=== PATIENT | male | born 1990 | race Caucasian/White ===

== ENCOUNTER 2017-09-08 10:57 | Inpatient (IN) | payer OTHER ==
[2017-09-08 11:23] VITALS: BMI 28.2
--- NOTE | 2017-09-08 13:50 | HP ---
CIWA Score - CIWA Score Nausea/Vomitin Muscle Tremors: 4-Moderate,w/Arms Extend Anxiety: 4-Mod. Anxious/Guarded Agitation: 4-Moderately Restless Paroxysmal Sweats: 3 Orientation: 0-Oriented Tacttile Disturbances: 0-None Auditory Disturbances: 0-None Visual Disturbances: 0-None Headache: 0-None Present CIWA-Ar Total Score: 17 Admission ROS BHS - HPI Chief Complaint: I am tired of drugs and drinking and want to get clean. Allergies/Adverse Reactions: Allergies Allergy/AdvReac Type Severity Reaction Status Date / Time No Known Allergies Allergy Verified 06/23/15 17:38 History of Present Illness: pt is a 26yr old male with a history of alcohol dependence seeking detox for treatment. Pt is also on a mmtp program received 100mg of methadone today and dose has been verified. Exam Limitations: No Limitations - Ebola screening Have you traveled outside of the country in the last 21 days: No (N) Have you had contact with anyone from an Ebola affected area: No Have you been sick,other than usual withdrawal symptoms: No Do you have a fever: No - Review of Systems Constitutional: Chills, Diaphoresis, Loss of Appetite, Night Sweats, Changes in sleep, Unintentional Wgt. Loss EENT: reports: Tearing Respiratory: reports: No Symptoms reported Cardiac: reports: Syncope GI: reports: Constipated, Poor Appetite, Poor Fluid Intake : reports: No Symptoms Reported Musculoskeletal: reports: Back Pain Integumentary: reports: Flushing, Sweating Neuro: reports: Tingling, Tremors Endocrine: reports: Excessive Sweating, Flushing, Intolerance to Cold, Intolerance to Heat Hematology: reports: No Symptoms Reported Psychiatric: reports: Judgement Intact, Mood/Affect Appropiate, Orientated x3, Agitated, Anxious Other Systems: Reviewed and Negative Patient History - Patient Medical History Hx Anemia: No Hx Asthma: No Hx Chronic Obstructive Pulmonary Disease (COPD): No Hx Cancer: No Hx Cardiac Disorders: No Hx Congestive Heart Failure: No Hx Hypertension: No Hx Hypercholesterolemia: No Hx Pacemaker: No HX Cerebrovascular Accident: No Hx Seizures: No Hx Dementia: No Hx Diabetes: No Hx Gastrointestinal Disorders: No (chronic gastritis) Hx Liver Disease: No Hx Genitourinary Disorders: No Hx Sexually Transmitted Disorders: No Hx Renal Disease (ESRD): No Hx Thyroid Disease: No Hx Human Immunodeficiency Virus (HIV): No (negative) Hx Hepatitis C: Yes (received treatment a year ago.) Hx Depression: Yes Hx Suicide Attempt: No (denies) Hx Bipolar Disorder: No Hx Schizophrenia: No - Patient Surgical History Past Surgical History: No Hx Neurologic Surgery: No Hx Cataract Extraction: No Hx Cardiac Surgery: No Hx Lung Surgery: No Hx Breast Surgery: No Hx Breast Biopsy: No Hx Abdominal Surgery: No Hx Appendectomy: No Hx Cholecystectomy: No Hx Genitourinary Surgery: No Hx Section: No Hx Orthopedic Surgery: No Anesthesia Reaction: No - PPD History Previous Implant?: Yes Documented Results: Negative w/o proof Implanted On Prior R Admission?: Yes PPD to be Administered?: Yes - Reproductive History Patient is a Female of Child Bearing Age (11 -55 yrs old): No - Smoking Cessation Smoking history: Current every day smoker Have you smoked in the past 12 months: Yes Aproximately how many cigarettes per day: 10 Cigars Per Day: 0 Hx Chewing Tobacco Use: No Initiated information on smoking cessation: Yes 'Breaking Loose' booklet given: 09/08/17 - Substance & Tx. History Hx Alcohol Use: Yes Hx Substance Use: Yes Substance Use Type: Alcohol, Cocaine, Heroin Hx Substance Use Treatment: Yes (last detox [facility] 1.5 months ago) - Substances Abused Cocaine Route: Inhalation Frequency: 3-6 times per week Amount used: $40 Age of first use: 16 Date of Last Use: 09/07/17 Heroin Route: Inhalation Frequency: Daily Amount used: 1 bag Age of first use: 20 Date of Last Use: 09/06/17 Alcohol-beer Route: Oral Frequency: Daily Amount used: 2-3 6 pks. Age of first use: 15 Date of Last Use: 09/07/17 Family Disease History - Family Disease History Family Disease History: CA: Mother (breast), Other: Father (ALCOHOL) Admission Physical Exam BHS - Vital Signs Vital Signs: Vital Signs - 24 hr 09/08/17 11:19 Temperature 97.7 F Pulse Rate 98 H Respiratory 18 Rate Blood Pressure 131/81 - Physical General Appearance: Yes: Appropriately Dressed, Moderate Distress, Tremorous, Irritable, Sweating, Anxious HEENTM: Yes: Normal ENT Inspection, Normal Voice Respiratory: Yes: Lungs Clear, Normal Breath Sounds, No Respiratory Distress Neck: Yes: No masses,lesions,Nodules Breast: Yes: Within Normal Limits Cardiology: Yes: Regular Rhythm, Regular Rate, S1, S2 Abdominal: Yes: Normal Bowel Sounds Genitourinary: Yes: Within Normal Limits Back: Yes: Normal Inspection Musculoskeletal: Yes: full range of Motion, Back pain (chronic back pain d/t injury in the past) Extremities: Yes: Normal Capillary Refill, Non-Tender, Tremors Neurological: Yes: Fully Oriented, Alert, Normal Response Integumentary: Yes: Normal Color Lymphatic: Yes: Within Normal Limits - Diagnostic (1) Alcohol dependence with withdrawal, uncomplicated Current Visit: Yes Status: Chronic (2) Methadone maintenance therapy patient Current Visit: Yes Status: Chronic Comment: dose verified with program [facility] 1B (3) Nicotine dependence, uncomplicated Current Visit: Yes Status: Chronic Qualifiers: Nicotine product type: cigarettes Qualified Code(s): F17.210 - Nicotine dependence, cigarettes, uncomplicated (4) Chronic back pain Current Visit: Yes Status: Chronic Qualifiers: Back pain location: back pain in unspecified location Back pain laterality : unspecified Qualified Code(s): M54.9 - Dorsalgia, unspecified; G89.29 - Other chronic pain; G89.29 - Other chronic pain (5) Use of cane as ambulatory aid Current Visit: Yes Status: Chronic Cleared for Admission [facility] - Detox or Rehab [facility] Level of Care: Medically Managed Detox Regimen/Protocol: Librium [facility] Breath Alcohol Content Breath Alcohol Content: 0 Urine Drug Screen - Results Drug Screen Negative: No Urine Drug Screen Results: PARVIN-Cocaine, OPI-Opiates, BZO-Benzodiazepines, MTD- Methadone, TCA-Tricyclic Antidepress
[2017-09-08] MEDS ORDERED: NICOTINE POLACRILEX 4 MG GUM BUC PRN (13:56)
[2017-09-08] MEDS ORDERED: P-EPHED 60MG/TRIPROLIDI 2.5MG TABLET PO PRN (13:56)
[2017-09-08] MEDS ORDERED: MAGNESIUM HYDROX 2400MG/30ML ORAL SUSPENSION 30 ML CUP PO PRN (13:56)
[2017-09-08] MEDS ORDERED: MAG HYDROX/AL HYDROX/SIMETH 30 ML UNIT-DOSE CUP PO PRN (13:56)
[2017-09-08] MEDS ORDERED: MENTHOL/PHENOL 1 EACH UD MM PRN (13:56)
[2017-09-08] MEDS ORDERED: IBUPROFEN 400 MG TABLET (FP) PO PRN (13:56)
[2017-09-08] MEDS ORDERED: MAGNESIUM CITRATE 300 ML BOTTLE PO PRN (13:56)
[2017-09-08] MEDS ORDERED: ACETAMINOPHEN 325 MG TABLET (FP) PO PRN (13:56)
[2017-09-08] MEDS ORDERED: hydrOXYzine PAMOATE 50 MG CAPSULE (FP) PO PRN (13:56)
[2017-09-08] MEDS ORDERED: chlordiazePOXIDE HCL 25 MG CAPSULE PO PRN (13:56)
[2017-09-08] MEDS ORDERED: LOPERAMIDE HCL 2 MG CAPSULE PO PRN (13:56)
[2017-09-08] MEDS ORDERED: guaiFENesin/D-METHORPHAN HB 10 ML UNIT-DOSE CUPS PO PRN (13:56)
[2017-09-08] MEDS ORDERED: chlordiazePOXIDE HCL 25 MG CAPSULE PO ONE (14:30)
[2017-09-08] MEDS ORDERED: LIDOCAINE 5% TOPICAL PATCH TP ONE (14:30)
--- NOTE | 2017-09-08 16:10 | CONSULT ---
[facility] Psychiatric Consult - Data Date of interview: 09/08/17 Admission source: [facility] Identifying data: Readmission to [facility] for this 26 y/o [place]born male seeking detox treatment on for heroin,alcohol and cocaine dependence.Patient is ,no children,unemployed,domiclied and supported on welfare. Substance Abuse History: Discussed in session.Mr Higgins confirmed his addictions as described in current [facility] report .Smoking history: Current every day smoker. Have you smoked in the past 12 months: Yes. Aproximately how many cigarettes per day: 10. Cigars Per Day: 0. Hx Chewing Tobacco Use: No. Initiated information on smoking cessation: Yes. 'Breaking Loose' booklet given : 09/08/17. - Substance & Tx. History. Hx Alcohol Use: Yes. Hx Substance Use : Yes. Substance Use Type: Alcohol, Cocaine, Heroin. Hx Substance Use Treatment: Yes (last detox [facility] 1.5 months ago). - Substances Abused. Cocaine. Route: Inhalation. Frequency: 3-6 times per week. Amount used: $40. Age of first use: 16. Date of Last Use: 09/07/17. Heroin. Route: Inhalation. Frequency: Daily. Amount used: 1 bag. Age of first use: 20. Date of Last Use: 09/06/17. Alcohol-beer. Route: Oral. Frequency: Daily. Amount used: 2-3 6 pks. Age of first use: 15. Date of Last Use: 09/07/17 Medical History: Hepatitis C,chronic back pain,recent back injury from fall on the stairs (July 2017) and gastritis. Psychiatric History: Onset of psychiatric disturbances : adolescence.Patient admits to a history of multiple psychiatric hospitalizations ([facility]).Diagnosed with MDD and Anxiety Disorder.Mr Higgins sees Dr Sarabia at [facility] for medication management ( seroquel 300 mg/hs + zoloft 100 mg/day + prazosin 2 mg/hs + trazodone 100 mg/hs) .Patient endorses adequate adherence to his medications.Currently on methadone maintenance (100 mg/day) at [facility] in the [place].No reported history of suicide attempts (ideation but no action). Physical/Sexual Abuse/Trauma History: Patient denies. Additional Comment: Urine Drug Screen Results: PARVIN-Cocaine, OPI-Opiates, BZO- Benzodiazepines, MTD-Methadone, TCA-Tricyclic Antidepressant.Noted. Mental Status Exam - Mental Status Exam Alert and Oriented to: Time, Place, Person Cognitive Function: Good Patient Appearance: Well Groomed (tattoos on both forearms) Mood: Nervous, Anxious, Hopeful Affect: Mood Congruent Patient Behavior: Fatigued, Appropriate, Cooperative Speech Pattern: Clear, Appropriate Voice Loudness: Normal Thought Process: Intact, Goal Oriented Thought Disorder: Not Present Hallucinations: Denies Suicidal Ideation: Denies Homicidal Ideation: Denies Insight/Judgement: Poor Sleep: Poorly, Difficulty falling asleep Appetite: Good Muscle strength/Tone: Normal (no compaint of rigidity ) Gait/Station: Other (ambulates with a cane) Psychiatric Findings - Problem List ([place] 1, 2,3) (1) Alcohol dependence with withdrawal, uncomplicated Current Visit: Yes Status: Acute (2) Opioid dependence on agonist therapy Current Visit: Yes Status: Acute (3) Cocaine dependence Current Visit: Yes Status: Acute (4) Nicotine dependence, uncomplicated Current Visit: Yes Status: Chronic Qualifiers: Nicotine product type: cigarettes Qualified Code(s): F17.210 - Nicotine dependence, cigarettes, uncomplicated (5) Substance induced mood disorder Current Visit: Yes Status: Acute (6) MDD (major depressive disorder) Current Visit: Yes Status: Chronic (7) Insomnia Current Visit: Yes Status: Acute - Initial Treatment Plan Initial Treatment Plan: Psychoeducation.Sleep hygiene discussed.Detoxification in progress.Medications : zoloft 50 mg po daily + trazodone 100 mg po hs + seroquel 200 mg po hs (reduced dose).Side effects/benefits of each drug are discussed with the patient.Trazodone is temporarily held (risk of oversedation from drug-drug interactions).Patient is agreable with this careplan.Observation.Fall precautions.
[2017-09-08] MEDS: chlordiazePOXIDE HCL 25 MG CAPSULE PO SCH ×2 (17:25→22:07)
[2017-09-08] MEDS: THIAMINE HCL 100 MG TABLET (FP) PO SCH (22:07)
[2017-09-08] MEDS: PRAZOSIN HCL 1 MG CAPSULE PO SCH (22:08)
[2017-09-08] MEDS: QUEtiapine FUMARATE 200 MG TABLET PO SCH (22:08)
[2017-09-08] MEDS: LIDOCAINE PATCH REMOVAL MC SCH (22:09)
[2017-09-08 22:27] LABS: URINE APPEARANCE CLEAR; URINE BILIRUBIN NEGATIVE (NEGATIVE); URINE BLOOD NEGATIVE (NEGATIVE); URINE COLOR YELLOW; URINE GLUCOSE (UA) NEGATIVE (NEGATIVE); URINE KETONE NEGATIVE (NEGATIVE); URINE LEUK ESTERASE TRACE (NEGATIVE); URINE NITRITE NEGATIVE (NEGATIVE); URINE PROTEIN NEGATIVE (NEGATIVE); URINE UROBILINOGEN NEGATIVE mg/dL (0.2-1.0)
[2017-09-08 22:49] LABS: EPI CELLS RARE /HPF (FEW); URINE MUCUS RARE
[2017-09-09] MEDS ORDERED: METHADONE HCL 10 MG TABLET ONE (04:49)
[2017-09-09] MEDS ORDERED: METHADONE HCL 40 MG DISPERSABLE TABLET ONE (04:50)
[2017-09-09] MEDS: METHADONE 80 MG, METHADONE 20 MG PO SCH (05:24)
[2017-09-09] MEDS: chlordiazePOXIDE HCL 25 MG CAPSULE PO SCH ×4 (05:24→22:17)
[2017-09-09] MEDS ORDERED: METHADONE HCL 10 MG TABLET PO SCH (06:00)
[2017-09-09] MEDS: PRENATAL VITAMINS W/ FOLIC ACID TABLET (FP) PO SCH (10:12)
[2017-09-09] MEDS: NICOTINE 21 MG/24 HOURS TOPICAL PATCH TD SCH (10:13)
[2017-09-09] MEDS: LIDOCAINE 5% TOPICAL PATCH TP SCH (10:13)
[2017-09-09] MEDS: NAPROXEN 500 MG TABLET (FP) PO SCH (10:13)
[2017-09-09] MEDS: SERTRALINE HCL 50 MG TABLET (FP) PO SCH (10:13)
[2017-09-09 10:27] LABS: HEMATOCRIT 43.1 % (35.4-49); HEMOGLOBIN 13.9 GM/dL (11.7-16.9); MCH 25.7 pg (25.7-33.7); MCHC 32.3 g/dl (32.0-35.9); MEAN CELL VOLUME 79.6 fl (80-96); MEAN PLT VOLUME 9.4 fl (7.5-11.1); PLATELET COUNT 346 K/MM3 (134-434); RBC 5.41 M/mm3 (4.00-5.60); RDW 14.5 % (11.9-15.9); WHITE BLOOD COUNT 11.6 K/mm3 (4.0-10.0)
[2017-09-09 10:37] LABS: CHLORIDE 99 mmol/L (98-107); POTASSIUM 4.2 mmol/L (3.5-5.1); SODIUM 137 mmol/L (136-145)
[2017-09-09 10:49] LABS: ALBUMIN 4.9 g/dl (3.4-5.0); ALK PHOS 111 U/L (45-117); ANION GAP 8 (8-16); BILIRUBIN,TOTAL 0.5 mg/dL (0.2-1.0); BLOOD UREA NITROGEN 14 mg/dL (7-18); CALCIUM 9.6 mg/dL (8.5-10.1); CO2 30 mmol/L (21-32); CREATININE 0.8 mg/dL (0.7-1.3); GLUCOSE,RANDOM 102 mg/dL (74-106); SGOT/AST 17 U/L (15-37); SGPT/ALT 20 U/L (12-78); TOT PROT 8.6 g/dl (6.4-8.2)
--- NOTE | 2017-09-09 16:00 | EKG ---
Test Reason : Blood Pressure : / mmHG Vent. Rate : 081 BPM Atrial Rate : 081 BPM P-R Int : 162 ms QRS Dur : 096 ms QT Int : 392 ms P-R-T Axes : 074 057 067 degrees QTc Int : 455 ms NORMAL SINUS RHYTHM NORMAL ECG NO PREVIOUS ECGS AVAILABLE Confirmed by KENNY REDDY, SVITLANA ([id number]) on 09/09/2017 4:00:05 PM Referred By: Confirmed By:SVITLANA COX MD
--- NOTE | 2017-09-09 16:41 | PN ---
S CIWA - CIWA Score Nausea/Vomitin-Int. Nausea w/Dry Heave Muscle Tremors: 2 Anxiety: 4-Mod. Anxious/Guarded Agitation: 4-Moderately Restless Paroxysmal Sweats: 3 Orientation: 0-Oriented Tacttile Disturbances: 0-None Auditory Disturbances: 0-None Visual Disturbances: 0-None Headache: 2-Mild CIWA-Ar Total Score: 19 BHS Progress Note (SOAP) Subjective: N/V (vomited x 1), sweating, stomach ache, headache, interrupted sleep Objective: 09/09/17 16:39 Last Vital Signs Temp Pulse Resp BP Pulse Ox 98.1 F 97 H 18 106/68 09/09/17 14:10 09/09/17 14:10 09/09/17 14:10 09/09/17 14:10 Laboratory Tests 09/08/17 09/09/17 09/09/17 20:01 06:10 06:10 WBC 11.6 H D RBC 5.41 Hgb 13.9 D Hct 43.1 D MCV 79.6 L MCH 25.7 MCHC 32.3 RDW 14.5 Plt Count 346 D MPV 9.4 Sodium 137 Potassium 4.2 Chloride 99 Carbon Dioxide 30 Anion Gap 8 BUN 14 Creatinine 0.8 Creat Clearance w eGFR > 60 Random Glucose 102 Calcium 9.6 Total Bilirubin 0.5 D AST 17 D ALT 20 D Alkaline Phosphatase 111 Total Protein 8.6 H D Albumin 4.9 D Urine Color Yellow Urine Appearance Clear Urine pH 5.0 D Ur Specific [place] 1.024 Urine Protein Negative Urine Glucose (UA) Negative Urine Ketones Negative Urine Blood Negative Urine Nitrite Negative Urine Bilirubin Negative Urine Urobilinogen Negative Ur Leukocyte Esterase Trace Urine WBC (Auto) 2 Urine RBC (Auto) <1 Ur Epithelial Cells Rare Urine Mucus Rare RPR Titer 09/09/17 06:10 WBC RBC Hgb Hct MCV MCH MCHC RDW Plt Count MPV Sodium Potassium Chloride Carbon Dioxide Anion Gap BUN Creatinine Creat Clearance w eGFR Random Glucose Calcium Total Bilirubin AST ALT Alkaline Phosphatase Total Protein Albumin Urine Color Urine Appearance Urine pH Ur Specific [place] Urine Protein Urine Glucose (UA) Urine Ketones Urine Blood Urine Nitrite Urine Bilirubin Urine Urobilinogen Ur Leukocyte Esterase Urine WBC (Auto) Urine RBC (Auto) Ur Epithelial Cells Urine Mucus RPR Titer Nonreactive Labs noted: wbc 11.6 Assessment: 09/09/17 16:40 Withdrawal symptoms Noted with leukocytosis Plan: Continue detox Leukocytosis: asymptomatic for infection, repeat CBC
[2017-09-09] MEDS: THIAMINE HCL 100 MG TABLET (FP) PO SCH (22:18)
[2017-09-09] MEDS: LIDOCAINE PATCH REMOVAL MC SCH (22:18)
[2017-09-09] MEDS: QUEtiapine FUMARATE 200 MG TABLET PO SCH (22:18)
[2017-09-09] MEDS: PRAZOSIN HCL 1 MG CAPSULE PO SCH (22:18)
[2017-09-10] MEDS ORDERED: METHADONE HCL 40 MG DISPERSABLE TABLET ONE (03:52)
[2017-09-10] MEDS ORDERED: METHADONE HCL 10 MG TABLET ONE (03:52)
[2017-09-10] MEDS: METHADONE 80 MG, METHADONE 20 MG PO SCH (05:10)
[2017-09-10] MEDS: chlordiazePOXIDE HCL 25 MG CAPSULE PO SCH ×2 (05:10→10:17)
[2017-09-10 10:11] LABS: HEMOGLOBIN 12.9 GM/dL (11.7-16.9); MEAN PLT VOLUME 9.1 fl (7.5-11.1)
[2017-09-10 10:14] LABS: BASO % 0.8 % (0-2.0); EOS % 2.3 % (0-4.5); HEMATOCRIT 41.1 % (35.4-49); LYMPH % 59.1 % (8-40); MCH 25.6 pg (25.7-33.7); MCHC 31.5 g/dl (32.0-35.9); MEAN CELL VOLUME 81.3 fl (80-96); MONO % 9.7 % (3.8-10.2); NEUT % 28.1 % (42.8-82.8); PLATELET COUNT 281 K/MM3 (134-434); RBC 5.05 M/mm3 (4.00-5.60); RDW 14.6 % (11.9-15.9); WHITE BLOOD COUNT 6.4 K/mm3 (4.0-10.0)
[2017-09-10] MEDS: SERTRALINE HCL 50 MG TABLET (FP) PO SCH (10:17)
[2017-09-10] MEDS: LIDOCAINE 5% TOPICAL PATCH TP SCH (10:17)
[2017-09-10] MEDS: PRENATAL VITAMINS W/ FOLIC ACID TABLET (FP) PO SCH (10:17)
[2017-09-10] MEDS: NICOTINE 21 MG/24 HOURS TOPICAL PATCH TD SCH (10:17)
[2017-09-10] MEDS: NAPROXEN 500 MG TABLET (FP) PO SCH (10:18)
[2017-09-10] MEDS: chlordiazePOXIDE 5 MG CAPSULE PO SCH ×2 (18:15→22:11)
[2017-09-10] MEDS: PRAZOSIN HCL 1 MG CAPSULE PO SCH (22:10)
[2017-09-10] MEDS: THIAMINE HCL 100 MG TABLET (FP) PO SCH (22:10)
[2017-09-10] MEDS: QUEtiapine FUMARATE 200 MG TABLET PO SCH (22:10)
[2017-09-10] MEDS: LIDOCAINE PATCH REMOVAL MC SCH (22:11)
--- NOTE | 2017-09-10 22:35 | PN ---
S CIWA - CIWA Score Nausea/Vomitin Muscle Tremors: 3 Anxiety: 3 Agitation: 3 Paroxysmal Sweats: 2 Orientation: 0-Oriented Tacttile Disturbances: 1-Very Mild Itch/Numbness Auditory Disturbances: 1-Very Mild Visual Disturbances: 0-None Headache: 0-None Present CIWA-Ar Total Score: 16 S Progress Note (SOAP) Subjective: sleepless shakes Objective: 09/10/17 22:33 slightly flushed Laboratory Last Values WBC 6.4 K/mm3 (4.0-10.0) D 09/10/17 08:15 RBC 5.05 M/mm3 (4.00-5.60) 09/10/17 08:15 Hgb 12.9 GM/dL (11.7-16.9) 09/10/17 08:15 Hct 41.1 % (35.4-49) 09/10/17 08:15 MCV 81.3 fl (80-96) 09/10/17 08:15 MCH 25.6 pg (25.7-33.7) L 09/10/17 08:15 MCHC 31.5 g/dl (32.0-35.9) L 09/10/17 08:15 RDW 14.6 % (11.9-15.9) 09/10/17 08:15 Plt Count 281 K/MM3 (134-434) 09/10/17 08:15 MPV 9.1 fl (7.5-11.1) 09/10/17 08:15 Neutrophils % 28.1 % (42.8-82.8) L 09/10/17 08:15 Lymphocytes % 59.1 % (8-40) H 09/10/17 08:15 Monocytes % 9.7 % (3.8-10.2) 09/10/17 08:15 Eosinophils % 2.3 % (0-4.5) 09/10/17 08:15 Basophils % 0.8 % (0-2.0) 09/10/17 08:15 Sodium 137 mmol/L (136-145) 09/09/17 06:10 Potassium 4.2 mmol/L (3.5-5.1) 09/09/17 06:10 Chloride 99 mmol/L (98-107) 09/09/17 06:10 Carbon Dioxide 30 mmol/L (21-32) 09/09/17 06:10 Anion Gap 8 (8-16) 09/09/17 06:10 BUN 14 mg/dL (7-18) 09/09/17 06:10 Creatinine 0.8 mg/dL (0.7-1.3) 09/09/17 06:10 Creat Clearance w eGFR > 60 (>60) 09/09/17 06:10 Random Glucose 102 mg/dL (74-106) 09/09/17 06:10 Calcium 9.6 mg/dL (8.5-10.1) 09/09/17 06:10 Total Bilirubin 0.5 mg/dL (0.2-1.0) D 09/09/17 06:10 AST 17 U/L (15-37) D 09/09/17 06:10 ALT 20 U/L (12-78) D 09/09/17 06:10 Alkaline Phosphatase 111 U/L (45-117) 09/09/17 06:10 Total Protein 8.6 g/dl (6.4-8.2) H D 09/09/17 06:10 Albumin 4.9 g/dl (3.4-5.0) D 09/09/17 06:10 Urine Color Yellow 09/08/17 20:01 Urine Appearance Clear 09/08/17 20:01 Urine pH 5.0 (5.0-8.0) D 09/08/17 20:01 Ur Specific [place] 1.024 (1.001-1.035) 09/08/17 20:01 Urine Protein Negative (NEGATIVE) 09/08/17 20:01 Urine Glucose (UA) Negative (NEGATIVE) 09/08/17 20:01 Urine Ketones Negative (NEGATIVE) 09/08/17 20:01 Urine Blood Negative (NEGATIVE) 09/08/17 20:01 Urine Nitrite Negative (NEGATIVE) 09/08/17 20:01 Urine Bilirubin Negative (NEGATIVE) 09/08/17 20:01 Urine Urobilinogen Negative mg/dL (0.2-1.0) 09/08/17 20:01 Ur Leukocyte Esterase Trace (NEGATIVE) 09/08/17 20:01 Urine WBC (Auto) 2 /hpf (3-5) 09/08/17 20:01 Urine RBC (Auto) <1 /hpf (0-3) 09/08/17 20:01 Ur Epithelial Cells Rare /HPF (FEW) 09/08/17 20:01 Urine Mucus Rare 09/08/17 20:01 RPR Titer Nonreactive (NONREACTIVE) 09/09/17 06:10 HIV 1&2 Antibody Screen Negative 09/08/17 13:34 HIV P24 Antigen Negative 09/08/17 13:34 labs noted Assessment: 09/10/17 22:35 withdrawal sx Plan: continue detox
[2017-09-11] MEDS ORDERED: METHADONE HCL 10 MG TABLET ONE (04:05)
[2017-09-11] MEDS ORDERED: METHADONE HCL 40 MG DISPERSABLE TABLET ONE (04:05)
[2017-09-11] MEDS: chlordiazePOXIDE 5 MG CAPSULE PO SCH ×2 (05:39→10:17)
[2017-09-11] MEDS: METHADONE 80 MG, METHADONE 20 MG PO SCH (05:39)
[2017-09-11] MEDS: NAPROXEN 500 MG TABLET (FP) PO SCH (10:17)
[2017-09-11] MEDS: LIDOCAINE 5% TOPICAL PATCH TP SCH (10:17)
[2017-09-11] MEDS: PRENATAL VITAMINS W/ FOLIC ACID TABLET (FP) PO SCH (10:17)
[2017-09-11] MEDS: SERTRALINE HCL 50 MG TABLET (FP) PO SCH (10:17)
[2017-09-11] MEDS: NICOTINE 21 MG/24 HOURS TOPICAL PATCH TD SCH (10:17)
--- NOTE | 2017-09-11 14:13 | PN ---
BHS Progress Note (SOAP) Subjective: shakes sweats sleeplessness Objective: ambulating steadily on unit Vital Signs Temperature 96.1 F L 09/11/17 09:53 Pulse Rate 109 H 09/11/17 09:53 Respiratory Rate 18 09/11/17 09:53 Blood Pressure 110/70 09/11/17 09:53 O2 Sat by Pulse Oximetry (%) Assessment: 09/11/17 14:12 withdrawal sx Plan: continue detox
[2017-09-11] MEDS: chlordiazePOXIDE HCL 10 MG CAPSULE PO SCH ×2 (17:43→22:18)
--- NOTE | 2017-09-11 18:27 | PN ---
[facility] Progress Note Note: Psychiatry Attending's note : Asked to re-examine this patient today. Reason : being the witness to a suicide attempt. Mr Higgins saw his roommate wrap bedsheet around neck. Promptly called for staff's attention and rescue.Held peer. Staff responded.Roommate evaluated.Secured. Mr Higgins was praised for his alertness and diligence. He expressed relief from seeing his peer taken to safety. Observed as calm,relaxed and grateful to staff after incident. No evidence of tension or anxiety.Normal hospital course. Visible on unit,going about his usual routine,pleasant on approach. Baseline mental status.
[2017-09-11] MEDS: QUEtiapine FUMARATE 200 MG TABLET PO SCH (22:17)
[2017-09-11] MEDS: THIAMINE HCL 100 MG TABLET (FP) PO SCH (22:17)
[2017-09-11] MEDS: PRAZOSIN HCL 1 MG CAPSULE PO SCH (22:18)
[2017-09-11] MEDS: LIDOCAINE PATCH REMOVAL MC SCH (22:18)
[2017-09-12] MEDS ORDERED: METHADONE HCL 10 MG TABLET ONE (04:18)
[2017-09-12] MEDS ORDERED: METHADONE HCL 40 MG DISPERSABLE TABLET ONE (04:19)
[2017-09-12] MEDS: chlordiazePOXIDE HCL 10 MG CAPSULE PO SCH ×2 (05:46→11:13)
[2017-09-12] MEDS: METHADONE 80 MG, METHADONE 20 MG PO SCH (05:47)
[2017-09-12] MEDS: NAPROXEN 500 MG TABLET (FP) PO SCH (09:42)
[2017-09-12] MEDS: NICOTINE 21 MG/24 HOURS TOPICAL PATCH TD SCH (09:43)
[2017-09-12] MEDS: PRENATAL VITAMINS W/ FOLIC ACID TABLET (FP) PO SCH (09:43)
[2017-09-12] MEDS: LIDOCAINE 5% TOPICAL PATCH TP SCH (09:43)
[2017-09-12 09:56] VITALS: BP 119/72; PULSE 106; TEMP 97.5
[2017-09-12] MEDS: SERTRALINE HCL 50 MG TABLET (FP) PO SCH (11:13)
--- NOTE | 2017-09-12 12:09 | DS ---
[facility] Detox Discharge Summary Admission Date: 09/08/17 Discharge Date: 09/12/17 - History Present History: Alcohol Dependence, Cocaine Dependence, Opioid Dependence, MMTP Additional Comments: PATIENT GOING TO [facility] ([facility] FOR AFTERCARE. PATIENT WAS DISCHARGED FROM DETOX UNIT IN STABLE MEDICAL CONDITION. Pertinent Past History: Hep C, Depression, Use of Cane as Ambulatory Aid, Insomnia, MMTP, Nicotine Dependence, Chronic Back Pain, Insomnia. - Physical Exam Results Vital Signs: Vital Signs Temperature 97.5 F L 09/12/17 09:55 Pulse Rate 106 H 09/12/17 09:55 Respiratory Rate 20 09/12/17 09:55 Blood Pressure 119/72 09/12/17 09:55 O2 Sat by Pulse Oximetry (%) Pertinent Admission Physical Exam Findings: WITHDRAWAL SYMPTOMS. Laboratory Tests 09/08/17 09/08/17 09/09/17 13:34 20:01 06:10 WBC 11.6 H D RBC 5.41 Hgb 13.9 D Hct 43.1 D MCV 79.6 L MCH 25.7 MCHC 32.3 RDW 14.5 Plt Count 346 D MPV 9.4 Neutrophils % Lymphocytes % Monocytes % Eosinophils % Basophils % Sodium Potassium Chloride Carbon Dioxide Anion Gap BUN Creatinine Creat Clearance w eGFR Random Glucose Calcium Total Bilirubin AST ALT Alkaline Phosphatase Total Protein Albumin Urine Color Yellow Urine Appearance Clear Urine pH 5.0 D Ur Specific [place] 1.024 Urine Protein Negative Urine Glucose (UA) Negative Urine Ketones Negative Urine Blood Negative Urine Nitrite Negative Urine Bilirubin Negative Urine Urobilinogen Negative Ur Leukocyte Esterase Trace Urine WBC (Auto) 2 Urine RBC (Auto) <1 Ur Epithelial Cells Rare Urine Mucus Rare RPR Titer HIV 1&2 Antibody Screen Negative HIV P24 Antigen Negative 09/09/17 09/09/17 09/10/17 06:10 06:10 08:15 WBC 6.4 D RBC 5.05 Hgb 12.9 Hct 41.1 MCV 81.3 MCH 25.6 L MCHC 31.5 L RDW 14.6 Plt Count 281 MPV 9.1 Neutrophils % 28.1 L Lymphocytes % 59.1 H Monocytes % 9.7 Eosinophils % 2.3 Basophils % 0.8 Sodium 137 Potassium 4.2 Chloride 99 Carbon Dioxide 30 Anion Gap 8 BUN 14 Creatinine 0.8 Creat Clearance w eGFR > 60 Random Glucose 102 Calcium 9.6 Total Bilirubin 0.5 D AST 17 D ALT 20 D Alkaline Phosphatase 111 Total Protein 8.6 H D Albumin 4.9 D Urine Color Urine Appearance Urine pH Ur Specific [place] Urine Protein Urine Glucose (UA) Urine Ketones Urine Blood Urine Nitrite Urine Bilirubin Urine Urobilinogen Ur Leukocyte Esterase Urine WBC (Auto) Urine RBC (Auto) Ur Epithelial Cells Urine Mucus RPR Titer Nonreactive HIV 1&2 Antibody Screen HIV P24 Antigen LABS NOTED. - Treatment Hospital Course: Detox Protocol Followed, Detoxed Safely, Responded well, Discharged Condition Good, Rehab Referral Accepted Patient has Accepted a Rehab Referral to: [facility] ([facility] . - Medication Discharge Medications: Ambulatory Orders Mirtazapine [Remeron -] 30 mg PO HS 06/23/15 traZODone HCL [Desyrel -] 100 mg PO HS 06/23/15 Naproxen [Naprosyn -] 500 mg PO DAILY 09/08/17 Prazosin HCl [Minipress -] 2 mg PO HS 09/08/17 Quetiapine Fumarate [Seroquel -] 300 mg PO HS 09/08/17 - Diagnosis (1) Alcohol dependence with withdrawal, uncomplicated Current Visit: Yes Status: Acute (2) Cocaine dependence Current Visit: Yes Status: Acute (3) Opioid dependence on agonist therapy Current Visit: Yes Status: Acute (4) Substance induced mood disorder Current Visit: Yes Status: Acute (5) Chronic back pain Current Visit: Yes Status: Chronic Qualifiers: Back pain location: back pain in unspecified location Back pain laterality : unspecified Qualified Code(s): M54.9 - Dorsalgia, unspecified; G89.29 - Other chronic pain; G89.29 - Other chronic pain (6) MDD (major depressive disorder) Current Visit: Yes Status: Chronic (7) Methadone maintenance therapy patient Current Visit: Yes Status: Chronic (8) Nicotine dependence, uncomplicated Current Visit: Yes Status: Chronic Qualifiers: Nicotine product type: cigarettes Qualified Code(s): F17.210 - Nicotine dependence, cigarettes, uncomplicated (9) Use of cane as ambulatory aid Current Visit: Yes Status: Chronic (10) Opioid dependence on agonist therapy Current Visit: No Status: Acute (11) Insomnia Current Visit: Yes Status: Acute - AMA Did Patient Leave Against Medical Advice: No
== END 2017-09-12 12:24 | disposition other institution (70) | DRG 773 ==
LOC: YASAS 10:57 → Y3N 14:20
PROVIDERS: ADMIT Internal Medicine; ATTEND Internal Medicine
PROC: HZ2ZZZZ Detoxification Services for Substance Abuse Treatment (ICD-10-PCS; principal; 2017-09-08)
DX: F10.230 Alcohol dependence with withdrawal, uncomplicated (principal); F11.20 Opioid dependence, uncomplicated; F14.20 Cocaine dependence, uncomplicated; F17.210 Nicotine dependence, cigarettes, uncomplicated; F19.24 Other psychoactive substance dependence with psychoactive substance-induced mood disorder; F33.9 Major depressive disorder, recurrent, unspecified; B18.2 Chronic viral hepatitis C; M54.9 Dorsalgia, unspecified; G89.29 Other chronic pain; G47.00 Insomnia, unspecified; D72.829 Elevated white blood cell count, unspecified; R26.2 Difficulty in walking, not elsewhere classified; Z99.89 Dependence on other enabling machines and devices
CPT/HCPCS: 36415; 80053; 81003; 81015; 85025; 85027; 86593; 87389; 93005; 93010

== ENCOUNTER 2017-09-12 14:04 | Inpatient (IN) | payer OTHER ==
--- NOTE | 2017-09-12 15:16 | HP ---
[facility] Rehab Assess/Revision - Admission History Admitted to Rehab from: [facility] Date of Admission to Rehab: 09/12/17 - Vital signs Vital Signs: Vital Signs Period Temp Pulse Resp BP Sys/Padilla Pulse Ox Last 24 Hr 98.2 F 98 20 88/60 - Findings Detox History & Physical reviewed: Yes Concur with findings: Yes Comments/Additional Findings[facility] Admission - Initial Determination Are CD services needed?: Yes Free of communicable disease: Yes Not in need of hospitalization: Yes - Rehab Admission Criteria Previous failed treatment: Yes Poor recovery environment: Yes Comorbidities: Yes Lacks judgement: No Patient is meeting Inpatient Rehab admission criteria:: Yes
[2017-09-12] MEDS ORDERED: ACETAMINOPHEN 325 MG TABLET (FP) PO PRN (15:17)
[2017-09-12] MEDS ORDERED: MENTHOL/PHENOL 1 EACH UD MM PRN (15:17)
[2017-09-12] MEDS ORDERED: hydrOXYzine PAMOATE 50 MG CAPSULE (FP) PO PRN (15:17)
[2017-09-12] MEDS ORDERED: guaiFENesin/D-METHORPHAN HB 10 ML UNIT-DOSE CUPS PO PRN (15:17)
[2017-09-12] MEDS ORDERED: MAGNESIUM CITRATE 300 ML BOTTLE PO PRN (15:17)
[2017-09-12] MEDS ORDERED: P-EPHED 60MG/TRIPROLIDI 2.5MG TABLET PO PRN (15:17)
[2017-09-12] MEDS ORDERED: MAGNESIUM HYDROX 2400MG/30ML ORAL SUSPENSION 30 ML CUP PO PRN (15:17)
[2017-09-12] MEDS ORDERED: IBUPROFEN 400 MG TABLET (FP) PO PRN (15:17)
[2017-09-12] MEDS ORDERED: MAG HYDROX/AL HYDROX/SIMETH 30 ML UNIT-DOSE CUP PO PRN (15:17)
[2017-09-12] MEDS ORDERED: LOPERAMIDE HCL 2 MG CAPSULE PO PRN (15:17)
[2017-09-12] MEDS: THIAMINE HCL 100 MG TABLET (FP) PO SCH (22:29)
[2017-09-13] MEDS ORDERED: METHADONE HCL 10 MG TABLET ONE (04:38)
[2017-09-13] MEDS ORDERED: METHADONE HCL 40 MG DISPERSABLE TABLET ONE (04:38)
[2017-09-13] MEDS ORDERED: METHADONE HCL 10 MG TABLET PO SCH (06:00)
[2017-09-13] MEDS: METHADONE 80 MG, METHADONE 20 MG PO SCH (06:29)
[2017-09-13] MEDS: PRENATAL VITAMINS W/ FOLIC ACID TABLET (FP) PO SCH (10:12)
[2017-09-13] MEDS: NICOTINE 21 MG/24 HOURS TOPICAL PATCH TD SCH (10:12)
[2017-09-13] MEDS: SERTRALINE HCL 50 MG TABLET (FP) PO SCH (11:09)
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
[2017-09-13] MEDS: LIDOCAINE 5% TOPICAL PATCH TP SCH (13:57)
[2017-09-13] MEDS: QUEtiapine FUMARATE 300 MG TABLET PO SCH (21:11)
[2017-09-13] MEDS: traZODone HCL 100 MG TABLET (FP) PO SCH (21:11)
[2017-09-13] MEDS: THIAMINE HCL 100 MG TABLET (FP) PO SCH (21:11)
[2017-09-13] MEDS: LIDOCAINE PATCH REMOVAL MC SCH (21:12)
[2017-09-14] MEDS ORDERED: METHADONE HCL 10 MG TABLET ONE (04:37)
[2017-09-14] MEDS ORDERED: METHADONE HCL 40 MG DISPERSABLE TABLET ONE (04:38)
[2017-09-14] MEDS: METHADONE 80 MG, METHADONE 20 MG PO SCH (06:00)
[2017-09-14] MEDS: SERTRALINE HCL 50 MG TABLET (FP) PO SCH (09:41)
[2017-09-14] MEDS: PRENATAL VITAMINS W/ FOLIC ACID TABLET (FP) PO SCH (09:41)
[2017-09-14] MEDS: NICOTINE 21 MG/24 HOURS TOPICAL PATCH TD SCH (09:41)
[2017-09-14] MEDS: LIDOCAINE 5% TOPICAL PATCH TP SCH (09:42)
[2017-09-14] MEDS: traZODone HCL 100 MG TABLET (FP) PO SCH (21:22)
[2017-09-14] MEDS: QUEtiapine FUMARATE 300 MG TABLET PO SCH (21:22)
[2017-09-14] MEDS: THIAMINE HCL 100 MG TABLET (FP) PO SCH (21:22)
[2017-09-14] MEDS: LIDOCAINE PATCH REMOVAL MC SCH (21:23)
[2017-09-15] MEDS ORDERED: METHADONE HCL 40 MG DISPERSABLE TABLET ONE (04:11)
[2017-09-15] MEDS ORDERED: METHADONE HCL 10 MG TABLET ONE (04:11)
[2017-09-15] MEDS: METHADONE 80 MG, METHADONE 20 MG PO SCH (06:34)
[2017-09-15] MEDS: PRENATAL VITAMINS W/ FOLIC ACID TABLET (FP) PO SCH (09:55)
[2017-09-15] MEDS: SERTRALINE HCL 50 MG TABLET (FP) PO SCH (09:55)
[2017-09-15] MEDS: NICOTINE 21 MG/24 HOURS TOPICAL PATCH TD SCH (09:55)
[2017-09-15] MEDS: LIDOCAINE 5% TOPICAL PATCH TP SCH (09:56)
[2017-09-15] MEDS: THIAMINE HCL 100 MG TABLET (FP) PO SCH (21:19)
[2017-09-15] MEDS: LIDOCAINE PATCH REMOVAL MC SCH (21:19)
[2017-09-15] MEDS: QUEtiapine FUMARATE 300 MG TABLET PO SCH (21:19)
[2017-09-15] MEDS: traZODone HCL 100 MG TABLET (FP) PO SCH (21:19)
[2017-09-16] MEDS ORDERED: METHADONE HCL 40 MG DISPERSABLE TABLET ONE (04:11)
[2017-09-16] MEDS ORDERED: METHADONE HCL 10 MG TABLET ONE (04:11)
[2017-09-16] MEDS: METHADONE 80 MG, METHADONE 20 MG PO SCH (05:53)
[2017-09-16] MEDS: PRENATAL VITAMINS W/ FOLIC ACID TABLET (FP) PO SCH (09:32)
[2017-09-16] MEDS: NICOTINE 21 MG/24 HOURS TOPICAL PATCH TD SCH (09:32)
[2017-09-16] MEDS: LIDOCAINE 5% TOPICAL PATCH TP SCH (09:32)
[2017-09-16] MEDS: SERTRALINE HCL 50 MG TABLET (FP) PO SCH (09:32)
[2017-09-16] MEDS: THIAMINE HCL 100 MG TABLET (FP) PO SCH (21:02)
[2017-09-16] MEDS: QUEtiapine FUMARATE 300 MG TABLET PO SCH (21:02)
[2017-09-16] MEDS: traZODone HCL 100 MG TABLET (FP) PO SCH (21:03)
[2017-09-16] MEDS: LIDOCAINE PATCH REMOVAL MC SCH (21:03)
[2017-09-17] MEDS ORDERED: METHADONE HCL 10 MG TABLET ONE (04:11)
[2017-09-17] MEDS ORDERED: METHADONE HCL 40 MG DISPERSABLE TABLET ONE (04:12)
[2017-09-17] MEDS: METHADONE 80 MG, METHADONE 20 MG PO SCH (05:57)
[2017-09-17] MEDS: NICOTINE 21 MG/24 HOURS TOPICAL PATCH TD SCH (09:36)
[2017-09-17] MEDS: SERTRALINE HCL 50 MG TABLET (FP) PO SCH (09:36)
[2017-09-17] MEDS: PRENATAL VITAMINS W/ FOLIC ACID TABLET (FP) PO SCH (09:36)
[2017-09-17] MEDS: LIDOCAINE 5% TOPICAL PATCH TP SCH (09:37)
[2017-09-17] MEDS: traZODone HCL 100 MG TABLET (FP) PO SCH (21:48)
[2017-09-17] MEDS: THIAMINE HCL 100 MG TABLET (FP) PO SCH (21:48)
[2017-09-17] MEDS: QUEtiapine FUMARATE 300 MG TABLET PO SCH (21:48)
[2017-09-17] MEDS: LIDOCAINE PATCH REMOVAL MC SCH (22:54)
[2017-09-18] MEDS ORDERED: METHADONE HCL 10 MG TABLET ONE (04:19)
[2017-09-18] MEDS ORDERED: METHADONE HCL 40 MG DISPERSABLE TABLET ONE (04:19)
[2017-09-18] MEDS: METHADONE 80 MG, METHADONE 20 MG PO SCH (05:54)
[2017-09-18] MEDS: SERTRALINE HCL 50 MG TABLET (FP) PO SCH (09:45)
[2017-09-18] MEDS: PRENATAL VITAMINS W/ FOLIC ACID TABLET (FP) PO SCH (09:45)
[2017-09-18] MEDS: NICOTINE 21 MG/24 HOURS TOPICAL PATCH TD SCH (09:45)
[2017-09-18] MEDS: LIDOCAINE 5% TOPICAL PATCH TP SCH (09:46)
[2017-09-18] MEDS: QUEtiapine FUMARATE 300 MG TABLET PO SCH (21:06)
[2017-09-18] MEDS: THIAMINE HCL 100 MG TABLET (FP) PO SCH (21:06)
[2017-09-18] MEDS: LIDOCAINE PATCH REMOVAL MC SCH (21:06)
[2017-09-18] MEDS: traZODone HCL 100 MG TABLET (FP) PO SCH (21:06)
[2017-09-19] MEDS ORDERED: METHADONE HCL 40 MG DISPERSABLE TABLET ONE (04:17)
[2017-09-19] MEDS ORDERED: METHADONE HCL 10 MG TABLET ONE (04:17)
[2017-09-19] MEDS: METHADONE 80 MG, METHADONE 20 MG PO SCH (06:05)
[2017-09-19] MEDS: LIDOCAINE 5% TOPICAL PATCH TP SCH (09:40)
[2017-09-19] MEDS: SERTRALINE HCL 50 MG TABLET (FP) PO SCH (09:40)
[2017-09-19] MEDS: NICOTINE 21 MG/24 HOURS TOPICAL PATCH TD SCH (09:40)
[2017-09-19] MEDS: PRENATAL VITAMINS W/ FOLIC ACID TABLET (FP) PO SCH (09:40)
[2017-09-19] MEDS: THIAMINE HCL 100 MG TABLET (FP) PO SCH (21:17)
[2017-09-19] MEDS: QUEtiapine FUMARATE 300 MG TABLET PO SCH (21:18)
[2017-09-19] MEDS: LIDOCAINE PATCH REMOVAL MC SCH (21:18)
[2017-09-19] MEDS: traZODone HCL 100 MG TABLET (FP) PO SCH (21:18)
[2017-09-20] MEDS ORDERED: METHADONE HCL 40 MG DISPERSABLE TABLET ONE (04:04)
[2017-09-20] MEDS ORDERED: METHADONE HCL 10 MG TABLET ONE (04:04)
[2017-09-20] MEDS: METHADONE 80 MG, METHADONE 20 MG PO SCH (06:07)
[2017-09-20] MEDS: PRENATAL VITAMINS W/ FOLIC ACID TABLET (FP) PO SCH (09:41)
[2017-09-20] MEDS: NICOTINE 21 MG/24 HOURS TOPICAL PATCH TD SCH (09:42)
[2017-09-20] MEDS: SERTRALINE HCL 50 MG TABLET (FP) PO SCH (09:42)
[2017-09-20] MEDS: LIDOCAINE 5% TOPICAL PATCH TP SCH (09:42)
[2017-09-20] MEDS: THIAMINE HCL 100 MG TABLET (FP) PO SCH (21:13)
[2017-09-20] MEDS: QUEtiapine FUMARATE 300 MG TABLET PO SCH (21:13)
[2017-09-20] MEDS: traZODone HCL 100 MG TABLET (FP) PO SCH (21:13)
[2017-09-20] MEDS: LIDOCAINE PATCH REMOVAL MC SCH (21:52)
[2017-09-21] MEDS ORDERED: METHADONE HCL 10 MG TABLET ONE (03:52)
[2017-09-21] MEDS ORDERED: METHADONE HCL 40 MG DISPERSABLE TABLET ONE (03:52)
[2017-09-21] MEDS: METHADONE 80 MG, METHADONE 20 MG PO SCH (06:12)
[2017-09-21] MEDS: SERTRALINE HCL 50 MG TABLET (FP) PO SCH (09:33)
[2017-09-21] MEDS: PRENATAL VITAMINS W/ FOLIC ACID TABLET (FP) PO SCH (09:33)
[2017-09-21] MEDS: NICOTINE 21 MG/24 HOURS TOPICAL PATCH TD SCH (09:33)
[2017-09-21] MEDS: LIDOCAINE 5% TOPICAL PATCH TP SCH (09:33)
[2017-09-21] MEDS: QUEtiapine FUMARATE 300 MG TABLET PO SCH (21:15)
[2017-09-21] MEDS: LIDOCAINE PATCH REMOVAL MC SCH (21:15)
[2017-09-21] MEDS: THIAMINE HCL 100 MG TABLET (FP) PO SCH (21:15)
[2017-09-21] MEDS: traZODone HCL 100 MG TABLET (FP) PO SCH (21:15)
[2017-09-22] MEDS ORDERED: METHADONE HCL 40 MG DISPERSABLE TABLET ONE (04:20)
[2017-09-22] MEDS ORDERED: METHADONE HCL 10 MG TABLET ONE (04:20)
[2017-09-22] MEDS: METHADONE 80 MG, METHADONE 20 MG PO SCH (06:25)
[2017-09-22] MEDS: PRENATAL VITAMINS W/ FOLIC ACID TABLET (FP) PO SCH (09:44)
[2017-09-22] MEDS: LIDOCAINE 5% TOPICAL PATCH TP SCH (09:44)
[2017-09-22] MEDS: SERTRALINE HCL 50 MG TABLET (FP) PO SCH (09:44)
[2017-09-22] MEDS: NICOTINE 21 MG/24 HOURS TOPICAL PATCH TD SCH (09:44)
[2017-09-22] MEDS: QUEtiapine FUMARATE 300 MG TABLET PO SCH (21:43)
[2017-09-22] MEDS: traZODone HCL 100 MG TABLET (FP) PO SCH (21:43)
[2017-09-22] MEDS: THIAMINE HCL 100 MG TABLET (FP) PO SCH (21:43)
[2017-09-22] MEDS: LIDOCAINE PATCH REMOVAL MC SCH (21:44)
[2017-09-23] MEDS ORDERED: METHADONE HCL 40 MG DISPERSABLE TABLET ONE (03:25)
[2017-09-23] MEDS ORDERED: METHADONE HCL 10 MG TABLET ONE (03:25)
[2017-09-23] MEDS: METHADONE 80 MG, METHADONE 20 MG PO SCH (06:12)
[2017-09-23] MEDS: SERTRALINE HCL 50 MG TABLET (FP) PO SCH (09:38)
[2017-09-23] MEDS: NICOTINE 21 MG/24 HOURS TOPICAL PATCH TD SCH (09:39)
[2017-09-23] MEDS: PRENATAL VITAMINS W/ FOLIC ACID TABLET (FP) PO SCH (09:39)
[2017-09-23] MEDS: LIDOCAINE 5% TOPICAL PATCH TP SCH (09:39)
[2017-09-23] MEDS: THIAMINE HCL 100 MG TABLET (FP) PO SCH (21:07)
[2017-09-23] MEDS: traZODone HCL 100 MG TABLET (FP) PO SCH (21:07)
[2017-09-23] MEDS: QUEtiapine FUMARATE 300 MG TABLET PO SCH (21:07)
[2017-09-23] MEDS: LIDOCAINE PATCH REMOVAL MC SCH (23:05)
[2017-09-24] MEDS ORDERED: METHADONE HCL 40 MG DISPERSABLE TABLET ONE (05:09)
[2017-09-24] MEDS ORDERED: METHADONE HCL 10 MG TABLET ONE (05:09)
[2017-09-24] MEDS: METHADONE 80 MG, METHADONE 20 MG PO SCH (06:08)
[2017-09-24] MEDS: SERTRALINE HCL 50 MG TABLET (FP) PO SCH (10:06)
[2017-09-24] MEDS: PRENATAL VITAMINS W/ FOLIC ACID TABLET (FP) PO SCH (10:06)
[2017-09-24] MEDS: LIDOCAINE 5% TOPICAL PATCH TP SCH (10:06)
[2017-09-24] MEDS: NICOTINE 21 MG/24 HOURS TOPICAL PATCH TD SCH (10:06)
[2017-09-24] MEDS: THIAMINE HCL 100 MG TABLET (FP) PO SCH (21:14)
[2017-09-24] MEDS: QUEtiapine FUMARATE 300 MG TABLET PO SCH (21:14)
[2017-09-24] MEDS: traZODone HCL 100 MG TABLET (FP) PO SCH (21:14)
[2017-09-24] MEDS: LIDOCAINE PATCH REMOVAL MC SCH (21:16)
[2017-09-25] MEDS ORDERED: METHADONE HCL 40 MG DISPERSABLE TABLET ONE (03:04)
[2017-09-25] MEDS ORDERED: METHADONE HCL 10 MG TABLET ONE (03:04)
[2017-09-25] MEDS: METHADONE 80 MG, METHADONE 20 MG PO SCH (05:57)
[2017-09-25] MEDS: LIDOCAINE 5% TOPICAL PATCH TP SCH (09:35)
[2017-09-25] MEDS: SERTRALINE HCL 50 MG TABLET (FP) PO SCH (09:35)
[2017-09-25] MEDS: PRENATAL VITAMINS W/ FOLIC ACID TABLET (FP) PO SCH (09:35)
[2017-09-25] MEDS: NICOTINE 21 MG/24 HOURS TOPICAL PATCH TD SCH (09:35)
[2017-09-25] MEDS: QUEtiapine FUMARATE 300 MG TABLET PO SCH (21:10)
[2017-09-25] MEDS: THIAMINE HCL 100 MG TABLET (FP) PO SCH (21:10)
[2017-09-25] MEDS: traZODone HCL 100 MG TABLET (FP) PO SCH (21:10)
[2017-09-25] MEDS: LIDOCAINE PATCH REMOVAL MC SCH (21:11)
[2017-09-26] MEDS ORDERED: METHADONE HCL 10 MG TABLET ONE (03:36)
[2017-09-26] MEDS ORDERED: METHADONE HCL 40 MG DISPERSABLE TABLET ONE (03:36)
[2017-09-26] MEDS: METHADONE 80 MG, METHADONE 20 MG PO SCH (06:04)
[2017-09-26] MEDS: SERTRALINE HCL 50 MG TABLET (FP) PO SCH (09:44)
[2017-09-26] MEDS: LIDOCAINE 5% TOPICAL PATCH TP SCH (09:44)
[2017-09-26] MEDS: PRENATAL VITAMINS W/ FOLIC ACID TABLET (FP) PO SCH (09:44)
[2017-09-26] MEDS: NICOTINE 21 MG/24 HOURS TOPICAL PATCH TD SCH (09:45)
[2017-09-26] MEDS: QUEtiapine FUMARATE 300 MG TABLET PO SCH (21:12)
[2017-09-26] MEDS: THIAMINE HCL 100 MG TABLET (FP) PO SCH (21:12)
[2017-09-26] MEDS: traZODone HCL 100 MG TABLET (FP) PO SCH (21:12)
[2017-09-26] MEDS: LIDOCAINE PATCH REMOVAL MC SCH (22:44)
[2017-09-27] MEDS ORDERED: METHADONE HCL 10 MG TABLET ONE (06:24)
[2017-09-27] MEDS: METHADONE 80 MG, METHADONE 20 MG PO SCH (06:25)
[2017-09-27] MEDS ORDERED: METHADONE HCL 40 MG DISPERSABLE TABLET ONE (06:25)
[2017-09-27] MEDS: SERTRALINE HCL 50 MG TABLET (FP) PO SCH (09:48)
[2017-09-27] MEDS: LIDOCAINE 5% TOPICAL PATCH TP SCH (09:48)
[2017-09-27] MEDS: NICOTINE 21 MG/24 HOURS TOPICAL PATCH TD SCH (09:48)
[2017-09-27] MEDS: PRENATAL VITAMINS W/ FOLIC ACID TABLET (FP) PO SCH (09:48)
[2017-09-27] MEDS: LIDOCAINE PATCH REMOVAL MC SCH (21:18)
[2017-09-27] MEDS: traZODone HCL 100 MG TABLET (FP) PO SCH (21:18)
[2017-09-27] MEDS: THIAMINE HCL 100 MG TABLET (FP) PO SCH (21:18)
[2017-09-27] MEDS: QUEtiapine FUMARATE 300 MG TABLET PO SCH (21:18)
[2017-09-28] MEDS ORDERED: METHADONE HCL 10 MG TABLET ONE (03:23)
[2017-09-28] MEDS ORDERED: METHADONE HCL 40 MG DISPERSABLE TABLET ONE (03:23)
[2017-09-28] MEDS: METHADONE 80 MG, METHADONE 20 MG PO SCH (06:07)
[2017-09-28] MEDS: NICOTINE 21 MG/24 HOURS TOPICAL PATCH TD SCH (09:37)
[2017-09-28] MEDS: LIDOCAINE 5% TOPICAL PATCH TP SCH (09:37)
[2017-09-28] MEDS: PRENATAL VITAMINS W/ FOLIC ACID TABLET (FP) PO SCH (09:37)
[2017-09-28] MEDS: SERTRALINE HCL 50 MG TABLET (FP) PO SCH (09:37)
--- NOTE | 2017-09-28 12:28 | PN ---
Psychiatric Progress Note Vital Signs: Vital Signs Period Temp Pulse Resp BP Sys/Padilla Pulse Ox Last 24 Hr 97.4 F 99 16-20 97/65 Date of Session: 09/28/17 Chief Complaint:: Anxiety HPI: Patient addressing Alcohol, Opoid and Cocaine Dependence comorbid with Nicotine Dependence , MDD and Substance-induced Mood Disorder ROS: HepC, Chronic gastritis Current Medications: Active Medications Generic Name Dose Route Start Last Admin Trade Name Freq PRN Reason Stop Dose Admin Acetaminophen 650 mg 09/12/17 15:17 Tylenol - PO Q4H PRN FEVER Al Hydroxide/Mg Hydroxide 30 ml 09/12/17 15:17 Mylanta Oral Suspension - PO Q6H PRN DYSPEPSIA Eucalyptus/Menthol/Phenol/Sorbitol 1 each 09/12/17 15:17 Cepastat Lozenge - MM Q4H PRN SORE THROAT Guaifenesin 10 ml 09/12/17 15:17 Robitussin Dm - PO Q6H PRN COUGH Hydroxyzine Pamoate 50 mg 09/12/17 15:17 Vistaril - PO Q4H PRN AGITATION Ibuprofen 400 mg 09/12/17 15:17 Motrin - PO Q6H PRN Pain Level 4-6 Lidocaine 1 patch 09/13/17 13:30 09/28/17 09:37 Lidoderm Patch - TP 1 patch DAILY LUZMA Administration Loperamide HCl 4 mg 09/12/17 15:17 Imodium - PO Q6H PRN DIARRHEA Magnesium Citrate 300 ml 09/12/17 15:17 Citroma - PO Q48H PRN CONSTIPATION Magnesium Hydroxide 30 ml 09/12/17 15:17 Milk Of Magnesia - PO DAILY PRN CONSTIPATION Methadone HCl 80 mg/ Methadone 100 mg 09/27/17 06:00 09/28/17 06:07 HCl 20 mg PO 10/04/17 05:59 100 mg DAILY@0600 LUZMA Administration Miscellaneous 1 each 09/13/17 22:00 09/27/17 21:18 Lidoderm Patch Removal MC 1 each DAILY@2200 LUZMA Administration Nicotine 21 mg 09/13/17 10:00 09/28/17 09:37 Nicoderm Patch - TD 21 mg DAILY LUZMA Administration Multivit/Folic Acid/Iron 1 tab 09/13/17 10:00 09/28/17 09:37 Vitamins (Sjr) - PO 1 tab DAILY LUZMA Administration Pseudoephedrine/Triprolidine 1 combo 09/12/17 15:17 Actifed - PO TID PRN NASAL CONGESTION Quetiapine Fumarate 300 mg 09/13/17 22:00 09/27/17 21:18 Seroquel - PO 300 mg HS LUZMA Administration Sertraline HCl 150 mg 09/29/17 10:00 Zoloft - PO DAILY LUZMA Sertraline HCl 50 mg 09/28/17 12:17 Zoloft - PO 09/28/17 12:18 ONCE ONE Thiamine HCl 100 mg 09/12/17 22:00 09/27/17 21:18 Vitamin B1 - PO 100 mg HS LUZMA Administration Trazodone HCl 100 mg 09/13/17 22:00 09/27/17 21:18 Desyrel - PO 100 mg HS LUZMA Administration Medication(s) Change(s): Increase Zoloft dosage to 150 mg po daily Current Side Effect: No Lab tests ordered: Yes Lab tests reviewed: Yes Provider note:: Patient reports that he has been feeling very anxious espacioully as his discharge date is approaching. He is currently on Zoloft 100 mg po daily, Seroquel 300 mg po HS and Trazadone 100 mg po HS. Discussed with patient about inceasing Zoloft dosage and he agreed with plan Total face to face time:: 25 Mental Status Exam - Mental Status Exam Alert and Oriented to: Time, Place, Person Cognitive Function: Fair Patient Appearance: Well Groomed Mood: Anxious Affect: Appropriate Patient Behavior: Cooperative Speech Pattern: Clear Voice Loudness: Normal Thought Process: Intact, Goal Oriented Thought Disorder: Not Present Hallucinations: Denies Suicidal Ideation: Denies Homicidal Ideation: Denies Insight/Judgement: Fair Sleep: Fair Appetite: Good Muscle strength/Tone: Normal Gait/Station: Normal Psychiatric Treatment Plan - Problem List (1) Alcohol dependence Current Visit: Yes (2) Opioid dependence Current Visit: Yes (3) Cocaine dependence Current Visit: Yes Qualifiers: Substance use status: uncomplicated Qualified Code(s): F14.20 - Cocaine dependence, uncomplicated (4) MDD (major depressive disorder) Current Visit: Yes Qualifiers: Major depression recurrence: recurrent Active/Remission status: remission status unspecified Qualified Code(s): F33.9 - Major depressive disorder, recurrent, unspecified Comment: Self reports. (5) Substance induced mood disorder Current Visit: Yes (6) Chronic back pain Current Visit: No Qualifiers: Back pain location: back pain in unspecified location Back pain laterality : unspecified Qualified Code(s): M54.9 - Dorsalgia, unspecified; G89.29 - Other chronic pain; G89.29 - Other chronic pain (7) Nicotine dependence, uncomplicated Current Visit: No Qualifiers: Nicotine product type: cigarettes Qualified Code(s): F17.210 - Nicotine dependence, cigarettes, uncomplicated Initial treatment plan: 1) Discontinue Zoloft 100 mg po daily. 2) Start Zoloft 150 mg po daily. 3) Monitor progress
[2017-09-28] MEDS ORDERED: SERTRALINE HCL 50 MG TABLET (FP) PO ONE (12:47)
[2017-09-28] MEDS: THIAMINE HCL 100 MG TABLET (FP) PO SCH (21:23)
[2017-09-28] MEDS: traZODone HCL 100 MG TABLET (FP) PO SCH (21:23)
[2017-09-28] MEDS: QUEtiapine FUMARATE 300 MG TABLET PO SCH (21:23)
[2017-09-28] MEDS: LIDOCAINE PATCH REMOVAL MC SCH (22:09)
[2017-09-29] MEDS ORDERED: METHADONE HCL 40 MG DISPERSABLE TABLET ONE (03:30)
[2017-09-29] MEDS ORDERED: METHADONE HCL 10 MG TABLET ONE (03:30)
[2017-09-29] MEDS: METHADONE 80 MG, METHADONE 20 MG PO SCH (06:06)
[2017-09-29] MEDS: LIDOCAINE 5% TOPICAL PATCH TP SCH (09:42)
[2017-09-29] MEDS: SERTRALINE HCL 50 MG TABLET (FP) PO SCH (09:42)
[2017-09-29] MEDS: PRENATAL VITAMINS W/ FOLIC ACID TABLET (FP) PO SCH (09:42)
[2017-09-29] MEDS: NICOTINE 21 MG/24 HOURS TOPICAL PATCH TD SCH (09:42)
[2017-09-29] MEDS: traZODone HCL 100 MG TABLET (FP) PO SCH (21:11)
[2017-09-29] MEDS: QUEtiapine FUMARATE 300 MG TABLET PO SCH (21:11)
[2017-09-29] MEDS: LIDOCAINE PATCH REMOVAL MC SCH (21:11)
[2017-09-29] MEDS: THIAMINE HCL 100 MG TABLET (FP) PO SCH (21:11)
[2017-09-30] MEDS ORDERED: METHADONE HCL 10 MG TABLET ONE (03:37)
[2017-09-30] MEDS ORDERED: METHADONE HCL 40 MG DISPERSABLE TABLET ONE (03:38)
[2017-09-30] MEDS: METHADONE 80 MG, METHADONE 20 MG PO SCH (06:21)
[2017-09-30] MEDS: PRENATAL VITAMINS W/ FOLIC ACID TABLET (FP) PO SCH (09:32)
[2017-09-30] MEDS: NICOTINE 21 MG/24 HOURS TOPICAL PATCH TD SCH (09:33)
[2017-09-30] MEDS: SERTRALINE HCL 50 MG TABLET (FP) PO SCH (09:33)
[2017-09-30] MEDS: LIDOCAINE 5% TOPICAL PATCH TP SCH (09:33)
[2017-09-30] MEDS: THIAMINE HCL 100 MG TABLET (FP) PO SCH (21:11)
[2017-09-30] MEDS: QUEtiapine FUMARATE 300 MG TABLET PO SCH (21:11)
[2017-09-30] MEDS: traZODone HCL 100 MG TABLET (FP) PO SCH (21:11)
[2017-09-30] MEDS: LIDOCAINE PATCH REMOVAL MC SCH (21:40)
[2017-10-01] MEDS ORDERED: METHADONE HCL 40 MG DISPERSABLE TABLET ONE (03:16)
[2017-10-01] MEDS ORDERED: METHADONE HCL 10 MG TABLET ONE (03:16)
[2017-10-01] MEDS: METHADONE 80 MG, METHADONE 20 MG PO SCH (06:18)
[2017-10-01 06:40] VITALS: BP 107/67
[2017-10-01] MEDS: PRENATAL VITAMINS W/ FOLIC ACID TABLET (FP) PO SCH (09:33)
[2017-10-01] MEDS: SERTRALINE HCL 50 MG TABLET (FP) PO SCH (09:33)
[2017-10-01] MEDS: LIDOCAINE 5% TOPICAL PATCH TP SCH (09:33)
[2017-10-01] MEDS: NICOTINE 21 MG/24 HOURS TOPICAL PATCH TD SCH (09:33)
--- NOTE | 2017-10-01 16:30 | PN ---
Psychiatric Progress Note Vital Signs: Vital Signs Period Temp Pulse Resp BP Sys/Padilla Pulse Ox Last 24 Hr 97.5 F 99 16-16 107/67 Date of Session: 10/01/17 Chief Complaint:: Discharge Note HPI: Patient addressing Alcohol, Opoid and Cocaine Dependence comorbid with Nicotine Dependence, MDD and Substance-induced Mood Disorder ROS: Hep C, Chronic gastritis Current Medications: Active Medications Generic Name Dose Route Start Last Admin Trade Name Freq PRN Reason Stop Dose Admin Acetaminophen 650 mg 09/12/17 15:17 Tylenol - PO Q4H PRN FEVER Al Hydroxide/Mg Hydroxide 30 ml 09/12/17 15:17 Mylanta Oral Suspension - PO Q6H PRN DYSPEPSIA Eucalyptus/Menthol/Phenol/Sorbitol 1 each 09/12/17 15:17 Cepastat Lozenge - MM Q4H PRN SORE THROAT Guaifenesin 10 ml 09/12/17 15:17 Robitussin Dm - PO Q6H PRN COUGH Hydroxyzine Pamoate 50 mg 09/12/17 15:17 Vistaril - PO Q4H PRN AGITATION Ibuprofen 400 mg 09/12/17 15:17 Motrin - PO Q6H PRN Pain Level 4-6 Lidocaine 1 patch 09/13/17 13:30 10/01/17 09:33 Lidoderm Patch - TP 1 patch DAILY LUZMA Administration Loperamide HCl 4 mg 09/12/17 15:17 Imodium - PO Q6H PRN DIARRHEA Magnesium Citrate 300 ml 09/12/17 15:17 Citroma - PO Q48H PRN CONSTIPATION Magnesium Hydroxide 30 ml 09/12/17 15:17 Milk Of Magnesia - PO DAILY PRN CONSTIPATION Methadone HCl 80 mg/ Methadone 100 mg 09/27/17 06:00 10/01/17 06:18 HCl 20 mg PO 10/04/17 05:59 100 mg DAILY@0600 LUZMA Administration Miscellaneous 1 each 09/13/17 22:00 09/30/17 21:40 Lidoderm Patch Removal MC 1 each DAILY@2200 LUZMA Administration Nicotine 21 mg 09/13/17 10:00 10/01/17 09:33 Nicoderm Patch - TD 21 mg DAILY LUZMA Administration Multivit/Folic Acid/Iron 1 tab 09/13/17 10:00 10/01/17 09:33 Vitamins (Sjr) - PO 1 tab DAILY LUZMA Administration Pseudoephedrine/Triprolidine 1 combo 09/12/17 15:17 Actifed - PO TID PRN NASAL CONGESTION Quetiapine Fumarate 300 mg 09/13/17 22:00 09/30/17 21:11 Seroquel - PO 300 mg HS LUZMA Administration Sertraline HCl 150 mg 09/29/17 10:00 10/01/17 09:33 Zoloft - PO 150 mg DAILY LUZMA Administration Thiamine HCl 100 mg 09/12/17 22:00 09/30/17 21:11 Vitamin B1 - PO 100 mg HS LUZMA Administration Trazodone HCl 100 mg 09/13/17 22:00 09/30/17 21:11 Desyrel - PO 100 mg HS LUZMA Administration Current Side Effect: No Lab tests ordered: Yes Lab tests reviewed: Yes Provider note:: Patient will complete this program on 10/02/17. He has met his treatment goals and will continue to address his issues in outpatient treatment at [facility]. Told headline writer that from his participation in this program, he has learned the importance of establising a sober support network in order to maintain abstinence. He responded well to Zoloft 150 mg po daily, Seroquel 300 mg po HS and Trazadone 100 mg po HS. Scripts for 30 days supply of medications will electronically be transmitted to [facility] at [address] [place] [address]. He is stable for discharge on 10/02/17 Total face to face time:: 35 Mental Status Exam - Mental Status Exam Alert and Oriented to: Time, Place, Person Cognitive Function: Fair Patient Appearance: Well Groomed Mood: Hopeful, Euthymic Affect: Appropriate Patient Behavior: Cooperative Speech Pattern: Clear Voice Loudness: Normal Thought Process: Intact, Goal Oriented Hallucinations: Denies Suicidal Ideation: Denies Homicidal Ideation: Denies Insight/Judgement: Fair Sleep: Fair Appetite: Good Muscle strength/Tone: Rigidity Gait/Station: Normal Psychiatric Treatment Plan - Problem List (1) Alcohol dependence Current Visit: Yes (2) Opioid dependence Current Visit: Yes (3) Cocaine dependence Current Visit: Yes Qualifiers: Substance use status: uncomplicated Qualified Code(s): F14.20 - Cocaine dependence, uncomplicated (4) MDD (major depressive disorder) Current Visit: Yes Qualifiers: Major depression recurrence: recurrent Active/Remission status: remission status unspecified Qualified Code(s): F33.9 - Major depressive disorder, recurrent, unspecified Comment: Self reports. (5) Substance induced mood disorder Current Visit: Yes (6) Chronic back pain Current Visit: No Qualifiers: Back pain location: back pain in unspecified location Back pain laterality : unspecified Qualified Code(s): M54.9 - Dorsalgia, unspecified; G89.29 - Other chronic pain; G89.29 - Other chronic pain (7) Nicotine dependence, uncomplicated Current Visit: No Qualifiers: Nicotine product type: cigarettes Qualified Code(s): F17.210 - Nicotine dependence, cigarettes, uncomplicated Initial treatment plan: Patient is discharged tomorrow and referred to [facility] for outpatient treatment
[2017-10-01] MEDS: traZODone HCL 100 MG TABLET (FP) PO SCH (21:27)
[2017-10-01] MEDS: LIDOCAINE PATCH REMOVAL MC SCH (21:27)
[2017-10-01] MEDS: QUEtiapine FUMARATE 300 MG TABLET PO SCH (21:27)
[2017-10-01] MEDS: THIAMINE HCL 100 MG TABLET (FP) PO SCH (21:27)
[2017-10-02] MEDS ORDERED: METHADONE HCL 40 MG DISPERSABLE TABLET ONE (03:08)
[2017-10-02] MEDS ORDERED: METHADONE HCL 10 MG TABLET ONE (03:08)
[2017-10-02] MEDS: METHADONE 80 MG, METHADONE 20 MG PO SCH (06:27)
[2017-10-02 06:39] VITALS: PULSE 97; TEMP 97.7
== END 2017-10-02 08:40 | disposition home or self-care (01) | DRG 772 ==
LOC: YASAS 14:04 → Y3W 14:05
PROVIDERS: ADMIT Psychiatry & Neurology Psychiatry; ATTEND Psychiatry & Neurology Psychiatry
PROC: HZ42ZZZ Group Counseling for Substance Abuse Treatment, Cognitive-Behavioral (ICD-10-PCS; principal; 2017-09-12)
DX: F11.20 Opioid dependence, uncomplicated (principal); F10.20 Alcohol dependence, uncomplicated; F14.20 Cocaine dependence, uncomplicated; F17.210 Nicotine dependence, cigarettes, uncomplicated; F33.9 Major depressive disorder, recurrent, unspecified; F19.24 Other psychoactive substance dependence with psychoactive substance-induced mood disorder

== ENCOUNTER 2021-05-24 10:06 | Inpatient (IN) | payer OTHER ==
[2021-05-24 11:52] VITALS: BMI 27.7
[2021-05-24] MEDS ORDERED: methaDONE HCL 10 MG TABLET PO SCH (14:45)
[2021-05-24] MEDS ORDERED: MAGNESIUM HYDROX 2400MG/30ML ORAL SUSPENSION 30 ML CUP PO PRN (14:50)
[2021-05-24] MEDS ORDERED: MAG HYDROX/AL HYDROX/SIMETH 30 ML UNIT-DOSE CUP PO PRN (14:50)
[2021-05-24] MEDS ORDERED: MAGNESIUM CITRATE 300 ML BOTTLE PO PRN (14:50)
[2021-05-24] MEDS ORDERED: MENTHOL/PHENOL 1 EACH UD MM PRN (14:50)
[2021-05-24] MEDS ORDERED: METHOCARBAMOL 500 MG TABLET PO PRN (14:50)
[2021-05-24] MEDS ORDERED: ACETAMINOPHEN 325 MG TABLET (FP) PO PRN ×2 (14:50)
[2021-05-24] MEDS ORDERED: BISMUTH SUBSALICYLATE 262 MG/15 ML BTL PO PRN (14:50)
[2021-05-24] MEDS ORDERED: diazePAM 5 MG TABLET ONE (15:08)
[2021-05-24] MEDS: diazePAM 5 MG TABLET PO PRN (15:11)
[2021-05-24] MEDS ORDERED: methaDONE HCL 10 MG TABLET ONE (15:41)
[2021-05-24] MEDS ORDERED: methaDONE HCL 40 MG DISPERSABLE TABLET ONE (15:42)
[2021-05-24] MEDS: diazePAM 5 MG TABLET PO SCH ×2 (17:23→22:27)
[2021-05-24 18:48] LABS: HEMATOCRIT 39.8 % (35.4-49); MCHC 32.6 g/dl (32.0-35.9); MEAN CELL VOLUME 79.6 fl (80-96); MEAN PLT VOLUME 9.9 fl (7.5-11.1); PLATELET COUNT 251 10^3/uL (134-434); RBC 4.99 M/mm3 (4.00-5.60); RDW 14.2 % (11.9-15.9); WHITE BLOOD COUNT 4.3 K/mm3 (4.0-10.0)
[2021-05-24 18:52] LABS: CALCIUM 9.3 mg/dL (8.5-10.1)
[2021-05-24 18:53] LABS: ALBUMIN 3.8 g/dl (3.4-5.0); BLOOD UREA NITROGEN 4.2 mg/dL (7-18)
[2021-05-24 18:56] LABS: CREATININE 0.7 mg/dL (0.55-1.3)
[2021-05-24 18:57] LABS: BILIRUBIN,TOTAL 0.4 mg/dL (0.2-1); TOT PROT 7.9 g/dl (6.4-8.2)
[2021-05-24 19:49] LABS: HIV INTERPRETATION NEGATIVE (NEGATIVE)
[2021-05-24] MEDS ORDERED: MELATONIN 5 MG TABLETS PO SCH (22:00)
[2021-05-24] MEDS: THIAMINE HCL 100 MG TABLET (FP) PO SCH (22:28)
[2021-05-25] MEDS ORDERED: methaDONE HCL 10 MG TABLET ONE (05:43)
[2021-05-25] MEDS ORDERED: methaDONE HCL 40 MG DISPERSABLE TABLET ONE (05:43)
[2021-05-25] MEDS: diazePAM 5 MG TABLET PO SCH ×4 (05:44→22:09)
[2021-05-25] MEDS: NICOTINE 10 MG CARTRIDGE (INHALER) IH PRN ×2 (09:01→17:54)
[2021-05-25] MEDS: PRENATAL VITAMINS W/ FOLIC ACID TABLET (FP) PO SCH (10:04)
[2021-05-25] MEDS: IBUPROFEN 400 MG TABLET (FP) PO PRN (10:08)
[2021-05-25] MEDS: MIRTAZAPINE 15 MG TABLET (FP) PO SCH (22:09)
[2021-05-25] MEDS: THIAMINE HCL 100 MG TABLET (FP) PO SCH (22:09)
[2021-05-26] MEDS ORDERED: methaDONE HCL 10 MG TABLET ONE (04:34)
[2021-05-26] MEDS ORDERED: methaDONE HCL 40 MG DISPERSABLE TABLET ONE (04:35)
[2021-05-26] MEDS: diazePAM 5 MG TABLET PO SCH ×3 (05:32→22:16)
[2021-05-26] MEDS: IBUPROFEN 400 MG TABLET (FP) PO PRN (05:34)
[2021-05-26] MEDS: NICOTINE 10 MG CARTRIDGE (INHALER) IH PRN (07:38)
[2021-05-26] MEDS: diazePAM 5 MG TABLET PO PRN (10:06)
[2021-05-26] MEDS: VENLAFAXINE HCL 150 MG E.R. CAPSULE PO SCH (10:06)
[2021-05-26] MEDS: PRENATAL VITAMINS W/ FOLIC ACID TABLET (FP) PO SCH (10:06)
[2021-05-26] MEDS: THIAMINE HCL 100 MG TABLET (FP) PO SCH (22:16)
[2021-05-26] MEDS: MIRTAZAPINE 15 MG TABLET (FP) PO SCH (22:16)
[2021-05-27] MEDS ORDERED: methaDONE HCL 10 MG TABLET ONE (04:23)
[2021-05-27] MEDS ORDERED: methaDONE HCL 40 MG DISPERSABLE TABLET ONE (04:23)
[2021-05-27] MEDS: diazePAM 5 MG TABLET PO SCH ×2 (05:58→18:49)
[2021-05-27] MEDS: NICOTINE 10 MG CARTRIDGE (INHALER) IH PRN (09:31)
[2021-05-27] MEDS: PRENATAL VITAMINS W/ FOLIC ACID TABLET (FP) PO SCH (10:06)
[2021-05-27] MEDS: VENLAFAXINE HCL 150 MG E.R. CAPSULE PO SCH (10:06)
[2021-05-27 12:17] LABS: SGOT/AST 50 U/L (15-37); SGPT/ALT 271 U/L (13-61)
[2021-05-27] MEDS: THIAMINE HCL 100 MG TABLET (FP) PO SCH (21:26)
[2021-05-27] MEDS: MIRTAZAPINE 15 MG TABLET (FP) PO SCH (21:26)
[2021-05-28] MEDS ORDERED: methaDONE HCL 10 MG TABLET ONE (04:32)
[2021-05-28] MEDS ORDERED: methaDONE HCL 40 MG DISPERSABLE TABLET ONE (04:32)
[2021-05-28] MEDS ORDERED: diazePAM 5 MG TABLET PO ONE (06:00)
[2021-05-28 06:21] VITALS: BP 122/67; PULSE 77; TEMP 97.3
== END 2021-05-28 08:48 | disposition home or self-care (01) | DRG 773 ==
LOC: YASAS 10:06 → Y6N 14:14
PROVIDERS: ADMIT Allergy & Immunology; ATTEND Allergy & Immunology
PROC: HZ2ZZZZ Detoxification Services for Substance Abuse Treatment (ICD-10-PCS; principal; 2021-05-24)
DX: F10.230 Alcohol dependence with withdrawal, uncomplicated (principal); F11.20 Opioid dependence, uncomplicated; F14.20 Cocaine dependence, uncomplicated; F13.20 Sedative, hypnotic or anxiolytic dependence, uncomplicated; F19.282 Other psychoactive substance dependence with psychoactive substance-induced sleep disorder; F19.24 Other psychoactive substance dependence with psychoactive substance-induced mood disorder; F41.9 Anxiety disorder, unspecified; F32.9 Major depressive disorder, single episode, unspecified; M54.89 Other dorsalgia; G89.29 Other chronic pain; R76.11 Nonspecific reaction to tuberculin skin test without active tuberculosis; Z62.810 Personal history of physical and sexual abuse in childhood; Z86.19 Personal history of other infectious and parasitic diseases
CPT/HCPCS: 36415; 71046-TC-FY; 80053; 84132; 84450; 84460; 85027; 86780; 87389; C9803; U0003; U0005

== ENCOUNTER 2021-05-31 13:03 | Inpatient (IN) | payer OTHER ==
[2021-05-31 20:36] VITALS: BMI 28.7
[2021-05-31] MEDS ORDERED: NICOTINE POLACRILEX 2 MG GUM BC PRN (23:12)
[2021-05-31] MEDS ORDERED: ACETAMINOPHEN 325 MG TABLET (FP) PO PRN (23:12)
[2021-05-31] MEDS ORDERED: guaiFENesin 200 MG/10 ML 10 ML UNIT-DOSE CUPS PO PRN (23:12)
[2021-05-31] MEDS ORDERED: MAGNESIUM CITRATE 300 ML BOTTLE PO PRN (23:12)
[2021-05-31] MEDS ORDERED: LOPERAMIDE HCL 2 MG CAPSULE PO PRN (23:12)
[2021-05-31] MEDS ORDERED: MAGNESIUM HYDROX 2400MG/30ML ORAL SUSPENSION 30 ML CUP PO PRN (23:12)
[2021-05-31] MEDS ORDERED: MAG HYDROX/AL HYDROX/SIMETH 30 ML UNIT-DOSE CUP PO PRN (23:12)
[2021-05-31] MEDS ORDERED: IBUPROFEN 400 MG TABLET (FP) PO PRN (23:12)
[2021-05-31] MEDS ORDERED: QUEtiapine FUMARATE 100 MG TABLET (FP) PO ONE (23:18)
[2021-06-01] MEDS ORDERED: methaDONE HCL 40 MG DISPERSABLE TABLET PO SCH (09:15)
[2021-06-01] MEDS ORDERED: methaDONE HCL 40 MG DISPERSABLE TABLET ONE (10:18)
[2021-06-01] MEDS: PRENATAL VITAMINS W/ FOLIC ACID TABLET (FP) PO SCH (10:18)
[2021-06-01] MEDS ORDERED: methaDONE HCL 10 MG TABLET ONE (10:18)
[2021-06-01] MEDS: NICOTINE 10 MG CARTRIDGE (INHALER) IH PRN ×2 (10:20→16:23)
[2021-06-01 10:21] LABS: PH,URINE 6.5 (5.0-8.0); URINE APPEARANCE CLEAR; URINE BILIRUBIN NEGATIVE (NEGATIVE); URINE COLOR YELLOW; URINE GLUCOSE (UA) NEGATIVE (NEGATIVE); URINE KETONE NEGATIVE (NEGATIVE); URINE LEUK ESTERASE NEGATIVE (NEGATIVE); URINE NITRITE NEGATIVE (NEGATIVE); URINE PROTEIN NEGATIVE (NEGATIVE); URINE UROBILINOGEN 0.2 mg/dL (0.2-1.0)
[2021-06-01 11:36] LABS: HEMATOCRIT 32.1 % (35.4-49); MCH 26.9 pg (25.7-33.7); MCHC 34.2 g/dl (32.0-35.9); MEAN CELL VOLUME 78.7 fl (80-96); MEAN PLT VOLUME 9.2 fl (7.5-11.1); PLATELET COUNT 216 10^3/uL (134-434); RBC 4.08 M/mm3 (4.00-5.60); RDW 14.5 % (11.9-15.9); WHITE BLOOD COUNT 6.9 K/mm3 (4.0-10.0)
[2021-06-01 11:55] LABS: BILIRUBIN,TOTAL 0.6 mg/dL (0.2-1); TOT PROT 6.4 g/dl (6.4-8.2)
[2021-06-01 11:58] LABS: ALBUMIN 3.1 g/dl (3.4-5.0)
[2021-06-01 11:59] LABS: BLOOD UREA NITROGEN 7.8 mg/dL (7-18)
[2021-06-01 12:01] LABS: CREATININE 0.5 mg/dL (0.55-1.3)
[2021-06-01 12:04] LABS: CALCIUM 7.9 mg/dL (8.5-10.1)
[2021-06-01 12:13] LABS: SYPHILIS W/ RPR CONF NON-REACTIVE (NONREACTIVE)
[2021-06-01] MEDS: VENLAFAXINE HCL 150 MG E.R. CAPSULE PO SCH (12:47)
[2021-06-01] MEDS: BENZTROPINE MESYLATE 1 MG TABLET PO SCH ×2 (12:47→21:16)
[2021-06-01] MEDS: LURASIDONE HCL 40 MG TABLET PO SCH (12:48)
[2021-06-01] MEDS: THIAMINE HCL 100 MG TABLET (FP) PO SCH (21:16)
[2021-06-01] MEDS: MELATONIN 5 MG TABLETS PO PRN (21:16)
[2021-06-01] MEDS: MIRTAZAPINE 15 MG TABLET (FP) PO SCH (21:17)
[2021-06-02] MEDS ORDERED: methaDONE HCL 40 MG DISPERSABLE TABLET ONE (03:13)
[2021-06-02] MEDS ORDERED: methaDONE HCL 10 MG TABLET ONE (03:13)
[2021-06-02] MEDS: PRENATAL VITAMINS W/ FOLIC ACID TABLET (FP) PO SCH (10:05)
[2021-06-02] MEDS: LURASIDONE HCL 40 MG TABLET PO SCH (10:06)
[2021-06-02] MEDS: BENZTROPINE MESYLATE 1 MG TABLET PO SCH ×2 (10:06→21:26)
[2021-06-02] MEDS: VENLAFAXINE HCL 150 MG E.R. CAPSULE PO SCH (10:06)
[2021-06-02] MEDS: NICOTINE 10 MG CARTRIDGE (INHALER) IH PRN ×2 (10:06→19:06)
[2021-06-02] MEDS: MIRTAZAPINE 15 MG TABLET (FP) PO SCH (21:26)
[2021-06-02] MEDS: THIAMINE HCL 100 MG TABLET (FP) PO SCH (21:26)
[2021-06-02] MEDS: MELATONIN 5 MG TABLETS PO PRN (21:26)
[2021-06-03] MEDS ORDERED: methaDONE HCL 40 MG DISPERSABLE TABLET ONE (03:02)
[2021-06-03] MEDS ORDERED: methaDONE HCL 10 MG TABLET ONE (03:02)
[2021-06-03] MEDS: BENZTROPINE MESYLATE 1 MG TABLET PO SCH ×2 (10:12→21:11)
[2021-06-03] MEDS: VENLAFAXINE HCL 150 MG E.R. CAPSULE PO SCH (10:12)
[2021-06-03] MEDS: LURASIDONE HCL 40 MG TABLET PO SCH (10:12)
[2021-06-03] MEDS: PRENATAL VITAMINS W/ FOLIC ACID TABLET (FP) PO SCH (10:12)
[2021-06-03] MEDS: NICOTINE 10 MG CARTRIDGE (INHALER) IH PRN (10:12)
[2021-06-03] MEDS: THIAMINE HCL 100 MG TABLET (FP) PO SCH (21:11)
[2021-06-03] MEDS: MELATONIN 5 MG TABLETS PO PRN (21:11)
[2021-06-03] MEDS: MIRTAZAPINE 15 MG TABLET (FP) PO SCH (21:11)
[2021-06-04] MEDS ORDERED: methaDONE HCL 40 MG DISPERSABLE TABLET ONE (03:13)
[2021-06-04] MEDS ORDERED: methaDONE HCL 10 MG TABLET ONE (03:13)
[2021-06-04] MEDS: PRENATAL VITAMINS W/ FOLIC ACID TABLET (FP) PO SCH (10:01)
[2021-06-04] MEDS: NICOTINE 10 MG CARTRIDGE (INHALER) IH PRN ×2 (10:02→21:29)
[2021-06-04] MEDS: LURASIDONE HCL 40 MG TABLET PO SCH (10:02)
[2021-06-04] MEDS: BENZTROPINE MESYLATE 1 MG TABLET PO SCH ×2 (10:02→21:29)
[2021-06-04] MEDS: VENLAFAXINE HCL 150 MG E.R. CAPSULE PO SCH (10:02)
[2021-06-04] MEDS: THIAMINE HCL 100 MG TABLET (FP) PO SCH (21:29)
[2021-06-04] MEDS: MIRTAZAPINE 15 MG TABLET (FP) PO SCH (21:29)
[2021-06-05] MEDS ORDERED: methaDONE HCL 40 MG DISPERSABLE TABLET ONE (02:55)
[2021-06-05] MEDS ORDERED: methaDONE HCL 10 MG TABLET ONE (02:56)
[2021-06-05] MEDS: LURASIDONE HCL 40 MG TABLET PO SCH (09:49)
[2021-06-05] MEDS: BENZTROPINE MESYLATE 1 MG TABLET PO SCH ×2 (09:49→21:25)
[2021-06-05] MEDS: VENLAFAXINE HCL 150 MG E.R. CAPSULE PO SCH (09:49)
[2021-06-05] MEDS: NICOTINE 10 MG CARTRIDGE (INHALER) IH PRN ×2 (09:49→21:27)
[2021-06-05] MEDS: PRENATAL VITAMINS W/ FOLIC ACID TABLET (FP) PO SCH (09:49)
[2021-06-05] MEDS: MIRTAZAPINE 15 MG TABLET (FP) PO SCH (21:25)
[2021-06-05] MEDS: MELATONIN 5 MG TABLETS PO PRN (21:26)
[2021-06-05] MEDS: THIAMINE HCL 100 MG TABLET (FP) PO SCH (21:26)
[2021-06-06] MEDS ORDERED: methaDONE HCL 40 MG DISPERSABLE TABLET ONE (02:55)
[2021-06-06] MEDS ORDERED: methaDONE HCL 10 MG TABLET ONE (02:55)
[2021-06-06] MEDS: BENZTROPINE MESYLATE 1 MG TABLET PO SCH ×2 (09:50→21:26)
[2021-06-06] MEDS: VENLAFAXINE HCL 150 MG E.R. CAPSULE PO SCH (09:50)
[2021-06-06] MEDS: PRENATAL VITAMINS W/ FOLIC ACID TABLET (FP) PO SCH (09:50)
[2021-06-06] MEDS: NICOTINE 10 MG CARTRIDGE (INHALER) IH PRN ×3 (09:51→21:27)
[2021-06-06] MEDS: LURASIDONE HCL 40 MG TABLET PO SCH (09:51)
[2021-06-06] MEDS: THIAMINE HCL 100 MG TABLET (FP) PO SCH (21:27)
[2021-06-06] MEDS: MIRTAZAPINE 15 MG TABLET (FP) PO SCH (21:27)
[2021-06-07] MEDS ORDERED: methaDONE HCL 10 MG TABLET ONE (03:03)
[2021-06-07] MEDS ORDERED: methaDONE HCL 40 MG DISPERSABLE TABLET ONE (03:03)
[2021-06-07] MEDS: NICOTINE 10 MG CARTRIDGE (INHALER) IH PRN ×2 (10:13→21:24)
[2021-06-07] MEDS: VENLAFAXINE HCL 150 MG E.R. CAPSULE PO SCH (10:13)
[2021-06-07] MEDS: PRENATAL VITAMINS W/ FOLIC ACID TABLET (FP) PO SCH (10:13)
[2021-06-07] MEDS: LURASIDONE HCL 40 MG TABLET PO SCH (10:13)
[2021-06-07] MEDS: BENZTROPINE MESYLATE 1 MG TABLET PO SCH ×2 (10:13→21:25)
[2021-06-07] MEDS: THIAMINE HCL 100 MG TABLET (FP) PO SCH (21:24)
[2021-06-07] MEDS: MIRTAZAPINE 15 MG TABLET (FP) PO SCH (21:25)
[2021-06-08] MEDS ORDERED: methaDONE HCL 40 MG DISPERSABLE TABLET ONE (03:19)
[2021-06-08] MEDS ORDERED: methaDONE HCL 10 MG TABLET ONE (03:19)
[2021-06-08] MEDS: LURASIDONE HCL 40 MG TABLET PO SCH (09:52)
[2021-06-08] MEDS: PRENATAL VITAMINS W/ FOLIC ACID TABLET (FP) PO SCH (09:52)
[2021-06-08] MEDS: NICOTINE 10 MG CARTRIDGE (INHALER) IH PRN ×2 (09:52→17:32)
[2021-06-08] MEDS: BENZTROPINE MESYLATE 1 MG TABLET PO SCH ×2 (09:52→21:16)
[2021-06-08] MEDS: VENLAFAXINE HCL 150 MG E.R. CAPSULE PO SCH (09:52)
[2021-06-08] MEDS: THIAMINE HCL 100 MG TABLET (FP) PO SCH (21:16)
[2021-06-08] MEDS: MIRTAZAPINE 15 MG TABLET (FP) PO SCH (21:16)
[2021-06-09] MEDS ORDERED: methaDONE HCL 40 MG DISPERSABLE TABLET ONE (03:04)
[2021-06-09] MEDS ORDERED: methaDONE HCL 10 MG TABLET ONE (03:04)
[2021-06-09] MEDS: PRENATAL VITAMINS W/ FOLIC ACID TABLET (FP) PO SCH (10:10)
[2021-06-09] MEDS: BENZTROPINE MESYLATE 1 MG TABLET PO SCH ×2 (10:11→21:11)
[2021-06-09] MEDS: NICOTINE 10 MG CARTRIDGE (INHALER) IH PRN ×2 (10:11→21:11)
[2021-06-09] MEDS: VENLAFAXINE HCL 150 MG E.R. CAPSULE PO SCH (10:11)
[2021-06-09] MEDS: LURASIDONE HCL 40 MG TABLET PO SCH (10:11)
[2021-06-09] MEDS: THIAMINE HCL 100 MG TABLET (FP) PO SCH (21:10)
[2021-06-09] MEDS: MIRTAZAPINE 15 MG TABLET (FP) PO SCH (21:11)
[2021-06-10] MEDS ORDERED: methaDONE HCL 40 MG DISPERSABLE TABLET ONE (03:11)
[2021-06-10] MEDS ORDERED: methaDONE HCL 10 MG TABLET ONE (03:11)
[2021-06-10] MEDS: NICOTINE 10 MG CARTRIDGE (INHALER) IH PRN ×3 (06:00→21:19)
[2021-06-10] MEDS: BENZTROPINE MESYLATE 1 MG TABLET PO SCH ×2 (10:00→21:19)
[2021-06-10] MEDS: PRENATAL VITAMINS W/ FOLIC ACID TABLET (FP) PO SCH (10:00)
[2021-06-10] MEDS: VENLAFAXINE HCL 150 MG E.R. CAPSULE PO SCH (10:00)
[2021-06-10] MEDS: LURASIDONE HCL 40 MG TABLET PO SCH (10:01)
[2021-06-10] MEDS: MIRTAZAPINE 15 MG TABLET (FP) PO SCH (21:19)
[2021-06-10] MEDS: THIAMINE HCL 100 MG TABLET (FP) PO SCH (21:19)
[2021-06-11] MEDS ORDERED: methaDONE HCL 40 MG DISPERSABLE TABLET ONE (03:12)
[2021-06-11] MEDS ORDERED: methaDONE HCL 10 MG TABLET ONE (03:12)
[2021-06-11] MEDS: LURASIDONE HCL 40 MG TABLET PO SCH (10:39)
[2021-06-11] MEDS: VENLAFAXINE HCL 150 MG E.R. CAPSULE PO SCH (10:39)
[2021-06-11] MEDS: BENZTROPINE MESYLATE 1 MG TABLET PO SCH ×2 (10:39→21:19)
[2021-06-11] MEDS: PRENATAL VITAMINS W/ FOLIC ACID TABLET (FP) PO SCH (10:39)
[2021-06-11] MEDS: NICOTINE 10 MG CARTRIDGE (INHALER) IH PRN ×2 (10:40→21:19)
[2021-06-11] MEDS: MIRTAZAPINE 15 MG TABLET (FP) PO SCH (21:19)
[2021-06-11] MEDS: THIAMINE HCL 100 MG TABLET (FP) PO SCH (21:19)
[2021-06-12] MEDS ORDERED: methaDONE HCL 10 MG TABLET ONE (03:14)
[2021-06-12] MEDS ORDERED: methaDONE HCL 40 MG DISPERSABLE TABLET ONE (03:14)
[2021-06-12] MEDS: NICOTINE 10 MG CARTRIDGE (INHALER) IH PRN ×3 (06:07→15:41)
[2021-06-12] MEDS: PRENATAL VITAMINS W/ FOLIC ACID TABLET (FP) PO SCH (10:22)
[2021-06-12] MEDS: LURASIDONE HCL 40 MG TABLET PO SCH (10:22)
[2021-06-12] MEDS: VENLAFAXINE HCL 150 MG E.R. CAPSULE PO SCH (10:22)
[2021-06-12] MEDS: BENZTROPINE MESYLATE 1 MG TABLET PO SCH ×2 (10:22→21:12)
[2021-06-12] MEDS: MIRTAZAPINE 15 MG TABLET (FP) PO SCH (21:12)
[2021-06-12] MEDS: THIAMINE HCL 100 MG TABLET (FP) PO SCH (21:12)
[2021-06-13] MEDS ORDERED: methaDONE HCL 40 MG DISPERSABLE TABLET ONE (03:14)
[2021-06-13] MEDS ORDERED: methaDONE HCL 10 MG TABLET ONE (03:14)
[2021-06-13] MEDS: NICOTINE 10 MG CARTRIDGE (INHALER) IH PRN ×2 (06:33→12:04)
[2021-06-13] MEDS: LURASIDONE HCL 40 MG TABLET PO SCH (09:56)
[2021-06-13] MEDS: PRENATAL VITAMINS W/ FOLIC ACID TABLET (FP) PO SCH (09:56)
[2021-06-13] MEDS: BENZTROPINE MESYLATE 1 MG TABLET PO SCH ×2 (09:56→21:14)
[2021-06-13] MEDS: VENLAFAXINE HCL 150 MG E.R. CAPSULE PO SCH (09:56)
[2021-06-13] MEDS: THIAMINE HCL 100 MG TABLET (FP) PO SCH (21:14)
[2021-06-13] MEDS: MIRTAZAPINE 15 MG TABLET (FP) PO SCH (21:14)
[2021-06-13] MEDS: MELATONIN 5 MG TABLETS PO PRN (21:14)
[2021-06-14] MEDS ORDERED: methaDONE HCL 40 MG DISPERSABLE TABLET ONE (03:17)
[2021-06-14] MEDS ORDERED: methaDONE HCL 10 MG TABLET ONE (03:18)
[2021-06-14] MEDS: VENLAFAXINE HCL 150 MG E.R. CAPSULE PO SCH (10:36)
[2021-06-14] MEDS: NICOTINE 10 MG CARTRIDGE (INHALER) IH PRN ×2 (10:36→20:56)
[2021-06-14] MEDS: BENZTROPINE MESYLATE 1 MG TABLET PO SCH ×2 (10:36→21:05)
[2021-06-14] MEDS: LURASIDONE HCL 40 MG TABLET PO SCH (10:37)
[2021-06-14] MEDS: PRENATAL VITAMINS W/ FOLIC ACID TABLET (FP) PO SCH (10:37)
[2021-06-14] MEDS: MIRTAZAPINE 15 MG TABLET (FP) PO SCH (21:05)
[2021-06-14] MEDS: THIAMINE HCL 100 MG TABLET (FP) PO SCH (21:05)
[2021-06-15] MEDS ORDERED: methaDONE HCL 40 MG DISPERSABLE TABLET ONE (02:54)
[2021-06-15] MEDS ORDERED: methaDONE HCL 10 MG TABLET ONE (02:55)
[2021-06-15] MEDS: NICOTINE 10 MG CARTRIDGE (INHALER) IH PRN ×3 (06:09→21:21)
[2021-06-15] MEDS: BENZTROPINE MESYLATE 1 MG TABLET PO SCH ×2 (10:10→21:20)
[2021-06-15] MEDS: LURASIDONE HCL 40 MG TABLET PO SCH (10:10)
[2021-06-15] MEDS: PRENATAL VITAMINS W/ FOLIC ACID TABLET (FP) PO SCH (10:10)
[2021-06-15] MEDS: VENLAFAXINE HCL 150 MG E.R. CAPSULE PO SCH (10:10)
[2021-06-15] MEDS: MIRTAZAPINE 15 MG TABLET (FP) PO SCH (21:20)
[2021-06-15] MEDS: THIAMINE HCL 100 MG TABLET (FP) PO SCH (21:20)
[2021-06-15] MEDS: hydrOXYzine PAMOATE 25 MG CAPSULE (FP) PO PRN (21:21)
[2021-06-16] MEDS ORDERED: methaDONE HCL 40 MG DISPERSABLE TABLET ONE (04:07)
[2021-06-16] MEDS ORDERED: methaDONE HCL 10 MG TABLET ONE (04:08)
[2021-06-16] MEDS: BENZTROPINE MESYLATE 1 MG TABLET PO SCH ×2 (10:34→21:13)
[2021-06-16] MEDS: VENLAFAXINE HCL 150 MG E.R. CAPSULE PO SCH (10:34)
[2021-06-16] MEDS: PRENATAL VITAMINS W/ FOLIC ACID TABLET (FP) PO SCH (10:34)
[2021-06-16] MEDS: NICOTINE 10 MG CARTRIDGE (INHALER) IH PRN (10:34)
[2021-06-16] MEDS: LURASIDONE HCL 40 MG TABLET PO SCH (10:34)
[2021-06-16] MEDS: THIAMINE HCL 100 MG TABLET (FP) PO SCH (21:13)
[2021-06-16] MEDS: MIRTAZAPINE 15 MG TABLET (FP) PO SCH (21:13)
[2021-06-16] MEDS: hydrOXYzine PAMOATE 25 MG CAPSULE (FP) PO PRN (21:13)
[2021-06-16] MEDS: MELATONIN 5 MG TABLETS PO PRN (21:13)
[2021-06-17] MEDS ORDERED: methaDONE HCL 40 MG DISPERSABLE TABLET ONE (03:19)
[2021-06-17] MEDS ORDERED: methaDONE HCL 10 MG TABLET ONE (03:19)
[2021-06-17] MEDS: BENZTROPINE MESYLATE 1 MG TABLET PO SCH ×2 (10:29→21:22)
[2021-06-17] MEDS: PRENATAL VITAMINS W/ FOLIC ACID TABLET (FP) PO SCH (10:29)
[2021-06-17] MEDS: LURASIDONE HCL 40 MG TABLET PO SCH (10:30)
[2021-06-17] MEDS: VENLAFAXINE HCL 150 MG E.R. CAPSULE PO SCH (10:30)
[2021-06-17] MEDS: NICOTINE 10 MG CARTRIDGE (INHALER) IH PRN ×2 (10:30→21:22)
[2021-06-17] MEDS: MIRTAZAPINE 15 MG TABLET (FP) PO SCH (21:21)
[2021-06-17] MEDS: hydrOXYzine PAMOATE 25 MG CAPSULE (FP) PO PRN (21:22)
[2021-06-17] MEDS: THIAMINE HCL 100 MG TABLET (FP) PO SCH (21:22)
[2021-06-18] MEDS ORDERED: methaDONE HCL 40 MG DISPERSABLE TABLET ONE (02:59)
[2021-06-18] MEDS ORDERED: methaDONE HCL 10 MG TABLET ONE (03:00)
[2021-06-18] MEDS: NICOTINE 10 MG CARTRIDGE (INHALER) IH PRN ×3 (06:24→21:08)
[2021-06-18] MEDS: VENLAFAXINE HCL 150 MG E.R. CAPSULE PO SCH (10:16)
[2021-06-18] MEDS: BENZTROPINE MESYLATE 1 MG TABLET PO SCH ×2 (10:16→21:08)
[2021-06-18] MEDS: PRENATAL VITAMINS W/ FOLIC ACID TABLET (FP) PO SCH (10:16)
[2021-06-18] MEDS: LURASIDONE HCL 40 MG TABLET PO SCH (10:16)
[2021-06-18] MEDS: MELATONIN 5 MG TABLETS PO PRN (21:08)
[2021-06-18] MEDS: MIRTAZAPINE 15 MG TABLET (FP) PO SCH (21:08)
[2021-06-18] MEDS: THIAMINE HCL 100 MG TABLET (FP) PO SCH (21:08)
[2021-06-18] MEDS: hydrOXYzine PAMOATE 25 MG CAPSULE (FP) PO PRN (21:09)
[2021-06-19] MEDS ORDERED: methaDONE HCL 40 MG DISPERSABLE TABLET ONE (04:01)
[2021-06-19] MEDS ORDERED: methaDONE HCL 10 MG TABLET ONE (04:01)
[2021-06-19] MEDS: PRENATAL VITAMINS W/ FOLIC ACID TABLET (FP) PO SCH (10:19)
[2021-06-19] MEDS: BENZTROPINE MESYLATE 1 MG TABLET PO SCH ×2 (10:19→21:31)
[2021-06-19] MEDS: LURASIDONE HCL 40 MG TABLET PO SCH (10:19)
[2021-06-19] MEDS: VENLAFAXINE HCL 150 MG E.R. CAPSULE PO SCH (10:19)
[2021-06-19] MEDS: NICOTINE 10 MG CARTRIDGE (INHALER) IH PRN ×3 (10:19→21:31)
[2021-06-19] MEDS: hydrOXYzine PAMOATE 25 MG CAPSULE (FP) PO PRN ×2 (10:19→21:31)
[2021-06-19] MEDS: P-EPHED 60MG/TRIPROLIDI 2.5MG TABLET PO PRN (17:04)
[2021-06-19] MEDS: THIAMINE HCL 100 MG TABLET (FP) PO SCH (21:30)
[2021-06-19] MEDS: MELATONIN 5 MG TABLETS PO PRN (21:30)
[2021-06-19] MEDS: MIRTAZAPINE 15 MG TABLET (FP) PO SCH (21:31)
[2021-06-20] MEDS ORDERED: methaDONE HCL 40 MG DISPERSABLE TABLET ONE (03:14)
[2021-06-20] MEDS ORDERED: methaDONE HCL 10 MG TABLET ONE (03:15)
[2021-06-20] MEDS: NICOTINE 10 MG CARTRIDGE (INHALER) IH PRN ×2 (06:15→10:12)
[2021-06-20] MEDS: LURASIDONE HCL 40 MG TABLET PO SCH (10:11)
[2021-06-20] MEDS: hydrOXYzine PAMOATE 25 MG CAPSULE (FP) PO PRN ×2 (10:11→21:20)
[2021-06-20] MEDS: BENZTROPINE MESYLATE 1 MG TABLET PO SCH ×2 (10:11→21:19)
[2021-06-20] MEDS: PRENATAL VITAMINS W/ FOLIC ACID TABLET (FP) PO SCH (10:11)
[2021-06-20] MEDS: VENLAFAXINE HCL 150 MG E.R. CAPSULE PO SCH (10:11)
[2021-06-20] MEDS: P-EPHED 60MG/TRIPROLIDI 2.5MG TABLET PO PRN (19:13)
[2021-06-20] MEDS: MELATONIN 5 MG TABLETS PO PRN (21:19)
[2021-06-20] MEDS: MIRTAZAPINE 15 MG TABLET (FP) PO SCH (21:19)
[2021-06-20] MEDS: THIAMINE HCL 100 MG TABLET (FP) PO SCH (21:19)
[2021-06-21] MEDS ORDERED: methaDONE HCL 40 MG DISPERSABLE TABLET ONE (02:55)
[2021-06-21] MEDS ORDERED: methaDONE HCL 10 MG TABLET ONE (02:56)
[2021-06-21] MEDS: NICOTINE 10 MG CARTRIDGE (INHALER) IH PRN (06:23)
[2021-06-21 07:32] VITALS: BP 116/80; PULSE 111; TEMP 98.1
[2021-06-21] MEDS: VENLAFAXINE HCL 150 MG E.R. CAPSULE PO SCH (09:00)
[2021-06-21] MEDS: LURASIDONE HCL 40 MG TABLET PO SCH (09:08)
[2021-06-21] MEDS: PRENATAL VITAMINS W/ FOLIC ACID TABLET (FP) PO SCH (09:08)
[2021-06-21] MEDS: BENZTROPINE MESYLATE 1 MG TABLET PO SCH (09:08)
== END 2021-06-21 09:02 | disposition home or self-care (01) | DRG 772 ==
LOC: YASAS 13:03 → Y3W 19:26
PROVIDERS: ADMIT Allergy & Immunology; ATTEND Allergy & Immunology
PROC: HZ42ZZZ Group Counseling for Substance Abuse Treatment, Cognitive-Behavioral (ICD-10-PCS; principal; 2021-05-31)
DX: F11.20 Opioid dependence, uncomplicated (principal); F10.20 Alcohol dependence, uncomplicated; F14.20 Cocaine dependence, uncomplicated; F13.20 Sedative, hypnotic or anxiolytic dependence, uncomplicated; F17.210 Nicotine dependence, cigarettes, uncomplicated; F19.280 Other psychoactive substance dependence with psychoactive substance-induced anxiety disorder; F31.9 Bipolar disorder, unspecified; F41.9 Anxiety disorder, unspecified; Z62.810 Personal history of physical and sexual abuse in childhood; Z86.19 Personal history of other infectious and parasitic diseases; Z99.89 Dependence on other enabling machines and devices; Z56.0 Unemployment, unspecified
CPT/HCPCS: 36415; 80053; 81003; 84132; 85027; 86780; 86803; 87522; C9803; U0003; U0005

== ENCOUNTER 2022-09-12 13:04 | Inpatient (IN) | payer OTHER ==
[2022-09-12 14:22] VITALS: BMI 27.1
[2022-09-12] MEDS ORDERED: P-EPHED 60MG/TRIPROLIDI 2.5MG TABLET PO PRN (16:46)
[2022-09-12] MEDS ORDERED: guaiFENesin 200 MG/10 ML 10 ML UNIT-DOSE CUPS PO PRN (16:46)
[2022-09-12] MEDS ORDERED: POLYETHYLENE GLYCOL (HEALTHYLAX) 3350 17 GM PACKET PO PRN (16:46)
[2022-09-12] MEDS ORDERED: NICOTINE 10 MG CARTRIDGE (INHALER) IH PRN (16:46)
[2022-09-12] MEDS ORDERED: MAGNESIUM HYDROX 2400MG/30ML ORAL SUSPENSION 30 ML CUP PO PRN (16:46)
[2022-09-12] MEDS ORDERED: LOPERAMIDE HCL 2 MG CAPSULE PO PRN (16:46)
[2022-09-12] MEDS: THIAMINE HCL 100 MG TABLET (FP) PO SCH (21:20)
[2022-09-12] MEDS: MELATONIN 5 MG TABLETS PO SCH (21:20)
[2022-09-12] MEDS: NYSTATIN 100,000 UNIT/GM TOPICAL CREAM 15 GM TUBE TP SCH (21:21)
[2022-09-12] MEDS: hydrOXYzine PAMOATE 25 MG CAPSULE (FP) PO PRN (21:21)
[2022-09-13] MEDS ORDERED: methaDONE HCL 40 MG DISPERSABLE TABLET PO ONE (10:00)
[2022-09-13] MEDS: PRENATAL VITAMINS W/ FOLIC ACID TABLET (FP) PO SCH (10:12)
[2022-09-13] MEDS: NICOTINE 7 MG/24 HOURS TOPICAL PATCH TD SCH (10:12)
[2022-09-13] MEDS: NYSTATIN 100,000 UNIT/GM TOPICAL CREAM 15 GM TUBE TP SCH ×2 (10:55→21:19)
[2022-09-13 11:23] LABS: HEMATOCRIT 39.6 % (35.4-49); MCH 26.7 pg (25.7-33.7); MCHC 32.9 g/dl (32.0-35.9); MEAN CELL VOLUME 81.1 fl (80-96); MEAN PLT VOLUME 9.2 fl (7.5-11.1); PLATELET COUNT 328 10^3/uL (134-434); RBC 4.89 M/mm3 (4.00-5.60); RDW 14.8 % (11.9-15.9)
[2022-09-13 11:27] LABS: CALCIUM 8.9 mg/dL (8.5-10.1)
[2022-09-13 11:28] LABS: BLOOD UREA NITROGEN 12.7 mg/dL (7-18)
[2022-09-13 11:31] LABS: CREATININE 0.7 mg/dL (0.55-1.3)
[2022-09-13 11:33] LABS: BILIRUBIN,TOTAL 0.4 mg/dL (0.2-1); TOT PROT 7.8 g/dl (6.4-8.2)
[2022-09-13] MEDS: ACETAMINOPHEN 325 MG TABLET (FP) PO PRN (13:11)
[2022-09-13] MEDS: THIAMINE HCL 100 MG TABLET (FP) PO SCH (21:18)
[2022-09-13] MEDS: MELATONIN 5 MG TABLETS PO SCH (21:18)
[2022-09-13] MEDS: PRAZOSIN HCL 1 MG CAPSULE PO SCH (21:19)
[2022-09-13] MEDS: BENZTROPINE MESYLATE 1 MG TABLET PO SCH (21:19)
[2022-09-14] MEDS: methaDONE HCL 40 MG DISPERSABLE TABLET PO SCH (06:12)
[2022-09-14] MEDS: NICOTINE 7 MG/24 HOURS TOPICAL PATCH TD SCH (09:58)
[2022-09-14] MEDS: VENLAFAXINE HCL 37.5 MG E.R. CAPSULE PO SCH (09:58)
[2022-09-14] MEDS: PRENATAL VITAMINS W/ FOLIC ACID TABLET (FP) PO SCH (09:58)
[2022-09-14] MEDS: LURASIDONE HCL 40 MG TABLET PO SCH (09:58)
[2022-09-14] MEDS: BENZTROPINE MESYLATE 1 MG TABLET PO SCH ×2 (09:58→21:18)
[2022-09-14] MEDS: NYSTATIN 100,000 UNIT/GM TOPICAL CREAM 15 GM TUBE TP SCH ×2 (09:59→21:19)
[2022-09-14] MEDS: THIAMINE HCL 100 MG TABLET (FP) PO SCH (21:18)
[2022-09-14] MEDS: PRAZOSIN HCL 1 MG CAPSULE PO SCH (21:18)
[2022-09-14] MEDS: MELATONIN 5 MG TABLETS PO SCH (21:18)
[2022-09-15] MEDS: methaDONE HCL 40 MG DISPERSABLE TABLET PO SCH (06:09)
[2022-09-15] MEDS: LURASIDONE HCL 40 MG TABLET PO SCH (09:48)
[2022-09-15] MEDS: VENLAFAXINE HCL 37.5 MG E.R. CAPSULE PO SCH (09:48)
[2022-09-15] MEDS: PRENATAL VITAMINS W/ FOLIC ACID TABLET (FP) PO SCH (09:48)
[2022-09-15] MEDS: NICOTINE 7 MG/24 HOURS TOPICAL PATCH TD SCH (09:48)
[2022-09-15] MEDS: BENZTROPINE MESYLATE 1 MG TABLET PO SCH ×2 (09:48→21:08)
[2022-09-15] MEDS: NYSTATIN 100,000 UNIT/GM TOPICAL CREAM 15 GM TUBE TP SCH ×2 (09:49→21:09)
[2022-09-15 16:44] LABS: URINE APPEARANCE CLEAR; URINE BILIRUBIN NEGATIVE (NEGATIVE); URINE COLOR YELLOW; URINE GLUCOSE (UA) NEGATIVE (NEGATIVE); URINE KETONE NEGATIVE (NEGATIVE); URINE LEUK ESTERASE NEGATIVE (NEGATIVE); URINE NITRITE NEGATIVE (NEGATIVE); URINE PROTEIN NEGATIVE (NEGATIVE); URINE UROBILINOGEN 0.2 mg/dL (0.2-1.0)
[2022-09-15] MEDS: PRAZOSIN HCL 1 MG CAPSULE PO SCH (21:08)
[2022-09-15] MEDS: THIAMINE HCL 100 MG TABLET (FP) PO SCH (21:08)
[2022-09-15] MEDS: MELATONIN 5 MG TABLETS PO SCH (21:08)
[2022-09-16] MEDS: methaDONE HCL 40 MG DISPERSABLE TABLET PO SCH (06:09)
[2022-09-16] MEDS: PRENATAL VITAMINS W/ FOLIC ACID TABLET (FP) PO SCH (09:47)
[2022-09-16] MEDS: NICOTINE 7 MG/24 HOURS TOPICAL PATCH TD SCH (09:47)
[2022-09-16] MEDS: BENZTROPINE MESYLATE 1 MG TABLET PO SCH ×2 (09:47→21:10)
[2022-09-16] MEDS: LURASIDONE HCL 40 MG TABLET PO SCH (10:55)
[2022-09-16] MEDS: VENLAFAXINE HCL 37.5 MG E.R. CAPSULE PO SCH (10:55)
[2022-09-16] MEDS: NYSTATIN 100,000 UNIT/GM TOPICAL CREAM 15 GM TUBE TP SCH ×2 (10:55→21:11)
[2022-09-16] MEDS: THIAMINE HCL 100 MG TABLET (FP) PO SCH (21:10)
[2022-09-16] MEDS: hydrOXYzine PAMOATE 25 MG CAPSULE (FP) PO PRN (21:10)
[2022-09-16] MEDS: MELATONIN 5 MG TABLETS PO SCH (21:10)
[2022-09-16] MEDS: PRAZOSIN HCL 1 MG CAPSULE PO SCH (21:10)
[2022-09-17] MEDS: methaDONE HCL 40 MG DISPERSABLE TABLET PO SCH (06:02)
[2022-09-17] MEDS: VENLAFAXINE HCL 37.5 MG E.R. CAPSULE PO SCH (09:57)
[2022-09-17] MEDS: LURASIDONE HCL 40 MG TABLET PO SCH (09:57)
[2022-09-17] MEDS: BENZTROPINE MESYLATE 1 MG TABLET PO SCH ×2 (09:57→21:18)
[2022-09-17] MEDS: NICOTINE 7 MG/24 HOURS TOPICAL PATCH TD SCH (09:58)
[2022-09-17] MEDS: NYSTATIN 100,000 UNIT/GM TOPICAL CREAM 15 GM TUBE TP SCH ×2 (09:58→21:28)
[2022-09-17] MEDS: PRENATAL VITAMINS W/ FOLIC ACID TABLET (FP) PO SCH (10:04)
[2022-09-17] MEDS: MELATONIN 5 MG TABLETS PO SCH (21:18)
[2022-09-17] MEDS: PRAZOSIN HCL 1 MG CAPSULE PO SCH (21:18)
[2022-09-17] MEDS: hydrOXYzine PAMOATE 25 MG CAPSULE (FP) PO PRN (21:18)
[2022-09-17] MEDS: THIAMINE HCL 100 MG TABLET (FP) PO SCH (21:18)
[2022-09-18] MEDS: methaDONE HCL 40 MG DISPERSABLE TABLET PO SCH (06:07)
[2022-09-18] MEDS: VENLAFAXINE HCL 37.5 MG E.R. CAPSULE PO SCH (10:09)
[2022-09-18] MEDS: BENZTROPINE MESYLATE 1 MG TABLET PO SCH ×2 (10:09→21:31)
[2022-09-18] MEDS: PRENATAL VITAMINS W/ FOLIC ACID TABLET (FP) PO SCH (10:09)
[2022-09-18] MEDS: LURASIDONE HCL 40 MG TABLET PO SCH (10:09)
[2022-09-18] MEDS: NYSTATIN 100,000 UNIT/GM TOPICAL CREAM 15 GM TUBE TP SCH ×2 (10:10→22:18)
[2022-09-18] MEDS: NICOTINE 7 MG/24 HOURS TOPICAL PATCH TD SCH (10:10)
[2022-09-18] MEDS: hydrOXYzine PAMOATE 25 MG CAPSULE (FP) PO PRN (21:31)
[2022-09-18] MEDS: THIAMINE HCL 100 MG TABLET (FP) PO SCH (21:31)
[2022-09-18] MEDS: PRAZOSIN HCL 1 MG CAPSULE PO SCH (21:31)
[2022-09-18] MEDS: MELATONIN 5 MG TABLETS PO SCH (21:31)
[2022-09-19] MEDS: methaDONE HCL 40 MG DISPERSABLE TABLET PO SCH (06:04)
[2022-09-19] MEDS: BENZTROPINE MESYLATE 1 MG TABLET PO SCH ×2 (09:48→21:12)
[2022-09-19] MEDS: LURASIDONE HCL 40 MG TABLET PO SCH (09:48)
[2022-09-19] MEDS: VENLAFAXINE HCL 37.5 MG E.R. CAPSULE PO SCH (09:48)
[2022-09-19] MEDS: PRENATAL VITAMINS W/ FOLIC ACID TABLET (FP) PO SCH (09:48)
[2022-09-19] MEDS: NYSTATIN 100,000 UNIT/GM TOPICAL CREAM 15 GM TUBE TP SCH ×2 (09:49→21:13)
[2022-09-19] MEDS: NICOTINE 7 MG/24 HOURS TOPICAL PATCH TD SCH (09:49)
[2022-09-19] MEDS: MAG HYDROX/AL HYDROX/SIMETH 30 ML UNIT-DOSE CUP PO PRN (11:38)
[2022-09-19] MEDS: hydrOXYzine PAMOATE 25 MG CAPSULE (FP) PO PRN (21:12)
[2022-09-19] MEDS: THIAMINE HCL 100 MG TABLET (FP) PO SCH (21:12)
[2022-09-19] MEDS: PRAZOSIN HCL 1 MG CAPSULE PO SCH (21:12)
[2022-09-19] MEDS: MELATONIN 5 MG TABLETS PO SCH (21:12)
[2022-09-20] MEDS: methaDONE HCL 40 MG DISPERSABLE TABLET PO SCH (06:04)
[2022-09-20] MEDS: MAG HYDROX/AL HYDROX/SIMETH 30 ML UNIT-DOSE CUP PO PRN ×2 (07:13→13:02)
[2022-09-20] MEDS: LURASIDONE HCL 40 MG TABLET PO SCH (09:49)
[2022-09-20] MEDS: BENZTROPINE MESYLATE 1 MG TABLET PO SCH ×2 (09:49→21:24)
[2022-09-20] MEDS: NICOTINE 7 MG/24 HOURS TOPICAL PATCH TD SCH (09:49)
[2022-09-20] MEDS: VENLAFAXINE HCL 37.5 MG E.R. CAPSULE PO SCH (09:49)
[2022-09-20] MEDS: PRENATAL VITAMINS W/ FOLIC ACID TABLET (FP) PO SCH (09:50)
[2022-09-20] MEDS: NYSTATIN 100,000 UNIT/GM TOPICAL CREAM 15 GM TUBE TP SCH ×2 (09:50→21:25)
[2022-09-20] MEDS: PRAZOSIN HCL 1 MG CAPSULE PO SCH (21:23)
[2022-09-20] MEDS: MELATONIN 5 MG TABLETS PO SCH (21:24)
[2022-09-20] MEDS: THIAMINE HCL 100 MG TABLET (FP) PO SCH (21:24)
[2022-09-20] MEDS: hydrOXYzine PAMOATE 25 MG CAPSULE (FP) PO PRN (21:24)
[2022-09-21] MEDS: methaDONE HCL 40 MG DISPERSABLE TABLET PO SCH (06:19)
[2022-09-21] MEDS: LURASIDONE HCL 40 MG TABLET PO SCH (09:56)
[2022-09-21] MEDS: NICOTINE 7 MG/24 HOURS TOPICAL PATCH TD SCH (09:56)
[2022-09-21] MEDS: PRENATAL VITAMINS W/ FOLIC ACID TABLET (FP) PO SCH (09:56)
[2022-09-21] MEDS: NYSTATIN 100,000 UNIT/GM TOPICAL CREAM 15 GM TUBE TP SCH ×2 (09:56→21:06)
[2022-09-21] MEDS: BENZTROPINE MESYLATE 1 MG TABLET PO SCH ×2 (09:57→21:05)
[2022-09-21] MEDS: VENLAFAXINE HCL 37.5 MG E.R. CAPSULE PO SCH (09:57)
[2022-09-21] MEDS: MELATONIN 5 MG TABLETS PO SCH (21:05)
[2022-09-21] MEDS: THIAMINE HCL 100 MG TABLET (FP) PO SCH (21:05)
[2022-09-21] MEDS: PRAZOSIN HCL 1 MG CAPSULE PO SCH (21:05)
[2022-09-21] MEDS: hydrOXYzine PAMOATE 25 MG CAPSULE (FP) PO PRN (21:05)
[2022-09-22] MEDS: methaDONE HCL 40 MG DISPERSABLE TABLET PO SCH (06:13)
[2022-09-22] MEDS: MAG HYDROX/AL HYDROX/SIMETH 30 ML UNIT-DOSE CUP PO PRN (07:23)
[2022-09-22] MEDS: BENZTROPINE MESYLATE 1 MG TABLET PO SCH ×2 (10:18→21:12)
[2022-09-22] MEDS: VENLAFAXINE HCL 37.5 MG E.R. CAPSULE PO SCH (10:18)
[2022-09-22] MEDS: LURASIDONE HCL 40 MG TABLET PO SCH (10:19)
[2022-09-22] MEDS: NYSTATIN 100,000 UNIT/GM TOPICAL CREAM 15 GM TUBE TP SCH ×2 (10:19→21:12)
[2022-09-22] MEDS: NICOTINE 7 MG/24 HOURS TOPICAL PATCH TD SCH (10:19)
[2022-09-22] MEDS: PRENATAL VITAMINS W/ FOLIC ACID TABLET (FP) PO SCH (10:20)
[2022-09-22] MEDS: THIAMINE HCL 100 MG TABLET (FP) PO SCH (21:12)
[2022-09-22] MEDS: PRAZOSIN HCL 1 MG CAPSULE PO SCH (21:12)
[2022-09-22] MEDS: MELATONIN 5 MG TABLETS PO SCH (21:12)
[2022-09-22] MEDS: hydrOXYzine PAMOATE 25 MG CAPSULE (FP) PO PRN (21:13)
[2022-09-23] MEDS: methaDONE HCL 40 MG DISPERSABLE TABLET PO SCH (06:23)
[2022-09-23] MEDS: BENZTROPINE MESYLATE 1 MG TABLET PO SCH ×2 (10:02→21:22)
[2022-09-23] MEDS: VENLAFAXINE HCL 37.5 MG E.R. CAPSULE PO SCH (10:02)
[2022-09-23] MEDS: LURASIDONE HCL 40 MG TABLET PO SCH (10:03)
[2022-09-23] MEDS: NYSTATIN 100,000 UNIT/GM TOPICAL CREAM 15 GM TUBE TP SCH ×2 (10:03→21:23)
[2022-09-23] MEDS: PRENATAL VITAMINS W/ FOLIC ACID TABLET (FP) PO SCH (10:03)
[2022-09-23] MEDS: NICOTINE 7 MG/24 HOURS TOPICAL PATCH TD SCH (10:03)
[2022-09-23] MEDS: MAG HYDROX/AL HYDROX/SIMETH 30 ML UNIT-DOSE CUP PO PRN (13:08)
[2022-09-23] MEDS: IBUPROFEN 400 MG TABLET (FP) PO PRN (18:57)
[2022-09-23] MEDS: THIAMINE HCL 100 MG TABLET (FP) PO SCH (21:22)
[2022-09-23] MEDS: hydrOXYzine PAMOATE 25 MG CAPSULE (FP) PO PRN (21:22)
[2022-09-23] MEDS: PRAZOSIN HCL 1 MG CAPSULE PO SCH (21:22)
[2022-09-23] MEDS: MELATONIN 5 MG TABLETS PO SCH (21:22)
[2022-09-24] MEDS: methaDONE HCL 40 MG DISPERSABLE TABLET PO SCH (06:23)
[2022-09-24] MEDS: PRENATAL VITAMINS W/ FOLIC ACID TABLET (FP) PO SCH (09:43)
[2022-09-24] MEDS: BENZTROPINE MESYLATE 1 MG TABLET PO SCH ×2 (09:43→21:21)
[2022-09-24] MEDS: NICOTINE 7 MG/24 HOURS TOPICAL PATCH TD SCH (09:44)
[2022-09-24] MEDS: LURASIDONE HCL 40 MG TABLET PO SCH (09:44)
[2022-09-24] MEDS: NYSTATIN 100,000 UNIT/GM TOPICAL CREAM 15 GM TUBE TP SCH ×2 (09:44→21:22)
[2022-09-24] MEDS: VENLAFAXINE HCL 37.5 MG E.R. CAPSULE PO SCH (09:44)
[2022-09-24] MEDS: MAG HYDROX/AL HYDROX/SIMETH 30 ML UNIT-DOSE CUP PO PRN (13:25)
[2022-09-24] MEDS: THIAMINE HCL 100 MG TABLET (FP) PO SCH (21:21)
[2022-09-24] MEDS: MELATONIN 5 MG TABLETS PO SCH (21:22)
[2022-09-24] MEDS: PRAZOSIN HCL 1 MG CAPSULE PO SCH (21:22)
[2022-09-24] MEDS: hydrOXYzine PAMOATE 25 MG CAPSULE (FP) PO PRN (21:22)
[2022-09-25] MEDS: methaDONE HCL 40 MG DISPERSABLE TABLET PO SCH (06:21)
[2022-09-25] MEDS: PRENATAL VITAMINS W/ FOLIC ACID TABLET (FP) PO SCH (09:33)
[2022-09-25] MEDS: BENZTROPINE MESYLATE 1 MG TABLET PO SCH ×2 (09:33→21:11)
[2022-09-25] MEDS: LURASIDONE HCL 40 MG TABLET PO SCH (09:34)
[2022-09-25] MEDS: VENLAFAXINE HCL 37.5 MG E.R. CAPSULE PO SCH (09:35)
[2022-09-25] MEDS: hydrOXYzine PAMOATE 25 MG CAPSULE (FP) PO PRN ×2 (09:35→21:11)
[2022-09-25] MEDS: NYSTATIN 100,000 UNIT/GM TOPICAL CREAM 15 GM TUBE TP SCH ×2 (09:49→21:12)
[2022-09-25] MEDS: NICOTINE 7 MG/24 HOURS TOPICAL PATCH TD SCH (09:49)
[2022-09-25] MEDS: PRAZOSIN HCL 1 MG CAPSULE PO SCH (21:11)
[2022-09-25] MEDS: MELATONIN 5 MG TABLETS PO SCH (21:11)
[2022-09-25] MEDS: THIAMINE HCL 100 MG TABLET (FP) PO SCH (21:12)
[2022-09-26] MEDS: methaDONE HCL 40 MG DISPERSABLE TABLET PO SCH (06:22)
[2022-09-26] MEDS: NICOTINE 7 MG/24 HOURS TOPICAL PATCH TD SCH (10:03)
[2022-09-26] MEDS: BENZTROPINE MESYLATE 1 MG TABLET PO SCH ×2 (10:03→21:19)
[2022-09-26] MEDS: LURASIDONE HCL 40 MG TABLET PO SCH (10:03)
[2022-09-26] MEDS: VENLAFAXINE HCL 37.5 MG E.R. CAPSULE PO SCH (10:03)
[2022-09-26] MEDS: PRENATAL VITAMINS W/ FOLIC ACID TABLET (FP) PO SCH (10:03)
[2022-09-26] MEDS: NYSTATIN 100,000 UNIT/GM TOPICAL CREAM 15 GM TUBE TP SCH ×2 (10:04→21:20)
[2022-09-26] MEDS: hydrOXYzine PAMOATE 25 MG CAPSULE (FP) PO PRN ×2 (10:05→21:19)
[2022-09-26] MEDS: IBUPROFEN 400 MG TABLET (FP) PO PRN (12:35)
[2022-09-26] MEDS: THIAMINE HCL 100 MG TABLET (FP) PO SCH (21:19)
[2022-09-26] MEDS: PRAZOSIN HCL 1 MG CAPSULE PO SCH (21:19)
[2022-09-26] MEDS: MELATONIN 5 MG TABLETS PO SCH (21:19)
[2022-09-27] MEDS: methaDONE HCL 40 MG DISPERSABLE TABLET PO SCH (06:02)
[2022-09-27] MEDS: VENLAFAXINE HCL 37.5 MG E.R. CAPSULE PO SCH (09:38)
[2022-09-27] MEDS: NICOTINE 7 MG/24 HOURS TOPICAL PATCH TD SCH (09:38)
[2022-09-27] MEDS: LURASIDONE HCL 40 MG TABLET PO SCH (09:38)
[2022-09-27] MEDS: BENZTROPINE MESYLATE 1 MG TABLET PO SCH ×2 (09:38→21:30)
[2022-09-27] MEDS: NYSTATIN 100,000 UNIT/GM TOPICAL CREAM 15 GM TUBE TP SCH ×2 (09:39→21:34)
[2022-09-27] MEDS: hydrOXYzine PAMOATE 25 MG CAPSULE (FP) PO PRN ×2 (09:39→21:30)
[2022-09-27] MEDS: PRENATAL VITAMINS W/ FOLIC ACID TABLET (FP) PO SCH (09:39)
[2022-09-27] MEDS: IBUPROFEN 400 MG TABLET (FP) PO PRN (13:03)
[2022-09-27] MEDS: THIAMINE HCL 100 MG TABLET (FP) PO SCH (21:30)
[2022-09-27] MEDS: MELATONIN 5 MG TABLETS PO SCH (21:31)
[2022-09-27] MEDS: PRAZOSIN HCL 1 MG CAPSULE PO SCH (21:33)
[2022-09-28] MEDS: methaDONE HCL 40 MG DISPERSABLE TABLET PO SCH (06:09)
[2022-09-28] MEDS: VENLAFAXINE HCL 75 MG E.R. CAPSULES PO SCH (07:02)
[2022-09-28] MEDS: NYSTATIN 100,000 UNIT/GM TOPICAL CREAM 15 GM TUBE TP SCH ×2 (10:00→22:52)
[2022-09-28] MEDS: BENZTROPINE MESYLATE 1 MG TABLET PO SCH ×2 (10:00→21:12)
[2022-09-28] MEDS: PRENATAL VITAMINS W/ FOLIC ACID TABLET (FP) PO SCH (10:00)
[2022-09-28] MEDS: LURASIDONE HCL 40 MG TABLET PO SCH (10:00)
[2022-09-28] MEDS: NICOTINE 7 MG/24 HOURS TOPICAL PATCH TD SCH (10:01)
[2022-09-28] MEDS: hydrOXYzine PAMOATE 25 MG CAPSULE (FP) PO PRN ×2 (10:01→21:12)
[2022-09-28] MEDS: ACETAMINOPHEN 325 MG TABLET (FP) PO PRN (18:43)
[2022-09-28] MEDS: MELATONIN 5 MG TABLETS PO SCH (21:11)
[2022-09-28] MEDS: PRAZOSIN HCL 1 MG CAPSULE PO SCH (21:11)
[2022-09-28] MEDS: THIAMINE HCL 100 MG TABLET (FP) PO SCH (21:11)
[2022-09-29] MEDS: methaDONE HCL 40 MG DISPERSABLE TABLET PO SCH (06:10)
[2022-09-29] MEDS: VENLAFAXINE HCL 75 MG E.R. CAPSULES PO SCH (07:20)
[2022-09-29] MEDS: NYSTATIN 100,000 UNIT/GM TOPICAL CREAM 15 GM TUBE TP SCH ×2 (09:45→21:14)
[2022-09-29] MEDS: BENZTROPINE MESYLATE 1 MG TABLET PO SCH ×2 (09:45→21:13)
[2022-09-29] MEDS: LURASIDONE HCL 40 MG TABLET PO SCH (09:45)
[2022-09-29] MEDS: PRENATAL VITAMINS W/ FOLIC ACID TABLET (FP) PO SCH (09:45)
[2022-09-29] MEDS: NICOTINE 7 MG/24 HOURS TOPICAL PATCH TD SCH (09:46)
[2022-09-29] MEDS: hydrOXYzine PAMOATE 25 MG CAPSULE (FP) PO PRN ×2 (09:46→21:13)
[2022-09-29] MEDS: MELATONIN 5 MG TABLETS PO SCH (21:12)
[2022-09-29] MEDS: PRAZOSIN HCL 1 MG CAPSULE PO SCH (21:12)
[2022-09-29] MEDS: THIAMINE HCL 100 MG TABLET (FP) PO SCH (21:12)
[2022-09-30] MEDS: methaDONE HCL 40 MG DISPERSABLE TABLET PO SCH (06:27)
[2022-09-30] MEDS: VENLAFAXINE HCL 75 MG E.R. CAPSULES PO SCH (07:05)
[2022-09-30] MEDS: NYSTATIN 100,000 UNIT/GM TOPICAL CREAM 15 GM TUBE TP SCH ×2 (10:05→21:12)
[2022-09-30] MEDS: PRENATAL VITAMINS W/ FOLIC ACID TABLET (FP) PO SCH (10:05)
[2022-09-30] MEDS: BENZTROPINE MESYLATE 1 MG TABLET PO SCH ×2 (10:05→21:12)
[2022-09-30] MEDS: LURASIDONE HCL 40 MG TABLET PO SCH (10:05)
[2022-09-30] MEDS: NICOTINE 7 MG/24 HOURS TOPICAL PATCH TD SCH (10:06)
[2022-09-30] MEDS: hydrOXYzine PAMOATE 25 MG CAPSULE (FP) PO PRN ×2 (10:07→21:12)
[2022-09-30] MEDS: ACETAMINOPHEN 325 MG TABLET (FP) PO PRN (15:15)
[2022-09-30] MEDS: BENZOCAINE/MENTHOL (CHLORASEPTIC ) LOZENGE MM PRN ×2 (15:18→19:35)
[2022-09-30] MEDS: PRAZOSIN HCL 1 MG CAPSULE PO SCH (21:11)
[2022-09-30] MEDS: THIAMINE HCL 100 MG TABLET (FP) PO SCH (21:11)
[2022-09-30] MEDS: MELATONIN 5 MG TABLETS PO SCH (21:11)
[2022-10-01] MEDS: methaDONE HCL 40 MG DISPERSABLE TABLET PO SCH (06:08)
[2022-10-01] MEDS: VENLAFAXINE HCL 75 MG E.R. CAPSULES PO SCH (07:01)
[2022-10-01] MEDS: NICOTINE 7 MG/24 HOURS TOPICAL PATCH TD SCH (10:00)
[2022-10-01] MEDS: BENZTROPINE MESYLATE 1 MG TABLET PO SCH ×2 (10:00→21:10)
[2022-10-01] MEDS: LURASIDONE HCL 40 MG TABLET PO SCH (10:00)
[2022-10-01] MEDS: NYSTATIN 100,000 UNIT/GM TOPICAL CREAM 15 GM TUBE TP SCH ×2 (10:00→21:11)
[2022-10-01] MEDS: hydrOXYzine PAMOATE 25 MG CAPSULE (FP) PO PRN (10:01)
[2022-10-01] MEDS: PRENATAL VITAMINS W/ FOLIC ACID TABLET (FP) PO SCH (10:01)
[2022-10-01] MEDS: MELATONIN 5 MG TABLETS PO SCH (21:10)
[2022-10-01] MEDS: PRAZOSIN HCL 1 MG CAPSULE PO SCH (21:10)
[2022-10-01] MEDS: THIAMINE HCL 100 MG TABLET (FP) PO SCH (21:11)
[2022-10-02] MEDS: methaDONE HCL 40 MG DISPERSABLE TABLET PO SCH (06:14)
[2022-10-02] MEDS: VENLAFAXINE HCL 75 MG E.R. CAPSULES PO SCH (07:06)
[2022-10-02] MEDS: NICOTINE 7 MG/24 HOURS TOPICAL PATCH TD SCH (09:51)
[2022-10-02] MEDS: BENZTROPINE MESYLATE 1 MG TABLET PO SCH ×2 (09:51→21:16)
[2022-10-02] MEDS: LURASIDONE HCL 40 MG TABLET PO SCH (09:51)
[2022-10-02] MEDS: PRENATAL VITAMINS W/ FOLIC ACID TABLET (FP) PO SCH (09:51)
[2022-10-02] MEDS: NYSTATIN 100,000 UNIT/GM TOPICAL CREAM 15 GM TUBE TP SCH ×2 (09:52→21:17)
[2022-10-02] MEDS: hydrOXYzine PAMOATE 25 MG CAPSULE (FP) PO PRN ×2 (09:52→21:16)
[2022-10-02] MEDS: THIAMINE HCL 100 MG TABLET (FP) PO SCH (21:15)
[2022-10-02] MEDS: MELATONIN 5 MG TABLETS PO SCH (21:15)
[2022-10-02] MEDS: PRAZOSIN HCL 1 MG CAPSULE PO SCH (21:16)
[2022-10-03] MEDS: methaDONE HCL 40 MG DISPERSABLE TABLET PO SCH (06:15)
[2022-10-03 06:51] VITALS: BP 123/80; PULSE 106; RESP 20; TEMP 97.7
[2022-10-03] MEDS: VENLAFAXINE HCL 75 MG E.R. CAPSULES PO SCH (07:05)
[2022-10-03] MEDS: LURASIDONE HCL 40 MG TABLET PO SCH (09:07)
[2022-10-03] MEDS: BENZTROPINE MESYLATE 1 MG TABLET PO SCH (09:07)
[2022-10-03] MEDS: NICOTINE 7 MG/24 HOURS TOPICAL PATCH TD SCH (09:07)
[2022-10-03] MEDS: PRENATAL VITAMINS W/ FOLIC ACID TABLET (FP) PO SCH (09:07)
[2022-10-03] MEDS: hydrOXYzine PAMOATE 25 MG CAPSULE (FP) PO PRN (09:08)
== END 2022-10-03 09:12 | disposition home or self-care (01) | DRG 772 ==
LOC: YASAS 13:04 → Y3E 18:20
PROVIDERS: ADMIT Allergy & Immunology; ATTEND Allergy & Immunology
PROC: HZ42ZZZ Group Counseling for Substance Abuse Treatment, Cognitive-Behavioral (ICD-10-PCS; principal; 2022-09-12)
DX: F10.20 Alcohol dependence, uncomplicated (principal); F14.20 Cocaine dependence, uncomplicated; F11.20 Opioid dependence, uncomplicated; F17.210 Nicotine dependence, cigarettes, uncomplicated; F31.9 Bipolar disorder, unspecified; F19.282 Other psychoactive substance dependence with psychoactive substance-induced sleep disorder; F19.24 Other psychoactive substance dependence with psychoactive substance-induced mood disorder; F41.9 Anxiety disorder, unspecified; G47.00 Insomnia, unspecified; M54.50 Low back pain, unspecified; G89.29 Other chronic pain; R76.11 Nonspecific reaction to tuberculin skin test without active tuberculosis; Z62.810 Personal history of physical and sexual abuse in childhood; Z87.09 Personal history of other diseases of the respiratory system
CPT/HCPCS: 36415; 71046-TC-FY; 80053; 81003; 85027; 86780; C9803-CS; U0003; U0005

== ENCOUNTER 2022-11-01 11:51 | Inpatient (IN) | payer OTHER ==
[2022-11-01 12:32] VITALS: BMI 28.8
[2022-11-01] MEDS ORDERED: NALOXONE HCL 0.4 MG/ML VIAL IM PRN (12:59)
[2022-11-01] MEDS ORDERED: BENZONATATE 200 MG CAPSULE PO PRN (12:59)
[2022-11-01] MEDS ORDERED: IBUPROFEN 400 MG TABLET (FP) PO PRN (12:59)
[2022-11-01] MEDS ORDERED: MAGNESIUM HYDROX 2400MG/30ML ORAL SUSPENSION 30 ML CUP PO PRN (12:59)
[2022-11-01] MEDS ORDERED: ACETAMINOPHEN 325 MG TABLET (FP) PO PRN (12:59)
[2022-11-01] MEDS ORDERED: guaiFENesin 600 MG TABLET.ER (FP) PO PRN (12:59)
[2022-11-01] MEDS ORDERED: METHOCARBAMOL 500 MG TABLET PO PRN (12:59)
[2022-11-01] MEDS ORDERED: hydrOXYzine PAMOATE 25 MG CAPSULE (FP) PO PRN (12:59)
[2022-11-01] MEDS ORDERED: NICOTINE 10 MG CARTRIDGE (INHALER) IH PRN (12:59)
[2022-11-01] MEDS ORDERED: NALOXONE HCL (KLOXXADO) 8 MG SPRAY NS PRN (12:59)
[2022-11-01] MEDS ORDERED: LORazepam 1 MG TABLET PO PRN (12:59)
[2022-11-01] MEDS ORDERED: POLYETHYLENE GLYCOL (HEALTHYLAX) 3350 17 GM PACKET PO PRN (12:59)
[2022-11-01] MEDS ORDERED: BISMUTH SUBSALICYLATE 524 MG/30 ML PO PRN (12:59)
[2022-11-01] MEDS ORDERED: IBUPROFEN 600 MG TABLET (FP) PO PRN (12:59)
[2022-11-01] MEDS ORDERED: DICYCLOMINE HCL 10 MG CAPSULE PO PRN (12:59)
[2022-11-01] MEDS ORDERED: MAG HYDROX/AL HYDROX/SIMETH 30 ML UNIT-DOSE CUP PO PRN (12:59)
[2022-11-01] MEDS ORDERED: LOPERAMIDE HCL 2 MG CAPSULE PO PRN (12:59)
[2022-11-01] MEDS ORDERED: BENZOCAINE/MENTHOL (CHLORASEPTIC ) LOZENGE MM PRN (12:59)
[2022-11-01] MEDS: PRENATAL VITAMINS W/ FOLIC ACID TABLET (FP) PO SCH (13:55)
[2022-11-01] MEDS: NICOTINE 7 MG/24 HOURS TOPICAL PATCH TD SCH (13:56)
[2022-11-01] MEDS ORDERED: LORazepam 2 MG TABLET PO ONE (14:00)
[2022-11-01] MEDS ORDERED: ONDANSETRON *ODT* 4 MG TABLET SL PRN (14:15)
[2022-11-01 15:12] LABS: HEMATOCRIT 33.1 % (35.4-49); HEMOGLOBIN 11.1 GM/dL (11.7-16.9); MCH 26.6 pg (25.7-33.7); MCHC 33.4 g/dl (32.0-35.9); MEAN CELL VOLUME 79.7 fl (80-96); MEAN PLT VOLUME 9.5 fl (7.5-11.1); PLATELET COUNT 249 10^3/uL (134-434); RBC 4.15 M/mm3 (4.00-5.60); RDW 14.8 % (11.9-15.9); WHITE BLOOD COUNT 7.6 K/mm3 (4.0-10.0)
[2022-11-01 15:31] LABS: ALBUMIN 3.7 g/dl (3.4-5.0); BLOOD UREA NITROGEN 12.4 mg/dL (7-18)
[2022-11-01 15:34] LABS: CREATININE 0.7 mg/dL (0.55-1.3)
[2022-11-01 15:35] LABS: TOT PROT 7.5 g/dl (6.4-8.2)
[2022-11-01 15:36] LABS: BILIRUBIN,TOTAL 0.2 mg/dL (0.2-1)
[2022-11-01] MEDS: LORazepam 2 MG TABLET PO SCH ×2 (18:37→22:18)
[2022-11-01] MEDS ORDERED: MELATONIN 5 MG TABLETS PO SCH (22:00)
[2022-11-01] MEDS: PRAZOSIN HCL 1 MG CAPSULE PO SCH (22:17)
[2022-11-01] MEDS: THIAMINE HCL 100 MG TABLET (FP) PO SCH (22:17)
[2022-11-01] MEDS: BENZTROPINE MESYLATE 1 MG TABLET PO SCH (22:17)
[2022-11-01] MEDS: MIRTAZAPINE 15 MG TABLET (FP) PO SCH (22:17)
[2022-11-02] MEDS: LORazepam 2 MG TABLET PO SCH ×4 (06:03→22:34)
[2022-11-02] MEDS: BENZTROPINE MESYLATE 1 MG TABLET PO SCH ×2 (08:53→22:34)
[2022-11-02] MEDS: LURASIDONE HCL 40 MG TABLET PO SCH (08:54)
[2022-11-02] MEDS: PRENATAL VITAMINS W/ FOLIC ACID TABLET (FP) PO SCH (10:10)
[2022-11-02] MEDS: VENLAFAXINE HCL 75 MG E.R. CAPSULES PO SCH (10:10)
[2022-11-02] MEDS: PANTOPRAZOLE 20 MG TABLET PO SCH (10:10)
[2022-11-02] MEDS: NICOTINE 7 MG/24 HOURS TOPICAL PATCH TD SCH (10:58)
[2022-11-02] MEDS: methaDONE HCL 40 MG DISPERSABLE TABLET PO SCH (13:37)
[2022-11-02 13:47] LABS: HIV INTERPRETATION NEGATIVE (NEGATIVE)
[2022-11-02] MEDS: PRAZOSIN HCL 1 MG CAPSULE PO SCH (22:34)
[2022-11-02] MEDS: MIRTAZAPINE 15 MG TABLET (FP) PO SCH (22:34)
[2022-11-02] MEDS: THIAMINE HCL 100 MG TABLET (FP) PO SCH (22:34)
[2022-11-03] MEDS: methaDONE HCL 40 MG DISPERSABLE TABLET PO SCH (06:08)
[2022-11-03] MEDS: LORazepam 1 MG TABLET PO SCH ×4 (06:08→22:26)
[2022-11-03] MEDS: LURASIDONE HCL 40 MG TABLET PO SCH (08:48)
[2022-11-03] MEDS: BENZTROPINE MESYLATE 1 MG TABLET PO SCH ×2 (08:49→22:26)
[2022-11-03] MEDS: VENLAFAXINE HCL 75 MG E.R. CAPSULES PO SCH (10:49)
[2022-11-03] MEDS: PANTOPRAZOLE 20 MG TABLET PO SCH (10:49)
[2022-11-03] MEDS: PRENATAL VITAMINS W/ FOLIC ACID TABLET (FP) PO SCH (10:49)
[2022-11-03] MEDS: NICOTINE 7 MG/24 HOURS TOPICAL PATCH TD SCH (10:50)
[2022-11-03] MEDS: MIRTAZAPINE 15 MG TABLET (FP) PO SCH (22:26)
[2022-11-03] MEDS: THIAMINE HCL 100 MG TABLET (FP) PO SCH (22:26)
[2022-11-03] MEDS: PRAZOSIN HCL 1 MG CAPSULE PO SCH (22:26)
[2022-11-04] MEDS ORDERED: LORazepam 0.5 MG TABLET PO PRN
[2022-11-04] MEDS: LORazepam 0.5 MG TABLET PO SCH ×4 (05:37→22:18)
[2022-11-04] MEDS: methaDONE HCL 40 MG DISPERSABLE TABLET PO SCH (05:37)
[2022-11-04] MEDS: BENZTROPINE MESYLATE 1 MG TABLET PO SCH ×2 (09:15→22:19)
[2022-11-04] MEDS: LURASIDONE HCL 40 MG TABLET PO SCH (09:15)
[2022-11-04] MEDS: PRENATAL VITAMINS W/ FOLIC ACID TABLET (FP) PO SCH (10:19)
[2022-11-04] MEDS: VENLAFAXINE HCL 75 MG E.R. CAPSULES PO SCH (10:19)
[2022-11-04] MEDS: PANTOPRAZOLE 20 MG TABLET PO SCH (10:19)
[2022-11-04] MEDS: NICOTINE 7 MG/24 HOURS TOPICAL PATCH TD SCH (10:20)
[2022-11-04] MEDS: MIRTAZAPINE 15 MG TABLET (FP) PO SCH (22:18)
[2022-11-04] MEDS: THIAMINE HCL 100 MG TABLET (FP) PO SCH (22:18)
[2022-11-04] MEDS: PRAZOSIN HCL 1 MG CAPSULE PO SCH (22:18)
[2022-11-05] MEDS ORDERED: LORazepam 0.5 MG TABLET PO ONE (05:00)
[2022-11-05] MEDS: methaDONE HCL 40 MG DISPERSABLE TABLET PO SCH (05:49)
[2022-11-05] MEDS: BENZTROPINE MESYLATE 1 MG TABLET PO SCH (09:07)
[2022-11-05] MEDS: LURASIDONE HCL 40 MG TABLET PO SCH (09:07)
[2022-11-05 09:46] VITALS: TEMP 97.3
[2022-11-05] MEDS: PRENATAL VITAMINS W/ FOLIC ACID TABLET (FP) PO SCH (10:13)
[2022-11-05] MEDS: NICOTINE 7 MG/24 HOURS TOPICAL PATCH TD SCH (10:13)
[2022-11-05] MEDS: PANTOPRAZOLE 20 MG TABLET PO SCH (10:13)
[2022-11-05] MEDS: VENLAFAXINE HCL 75 MG E.R. CAPSULES PO SCH (10:13)
[2022-11-05 13:38] VITALS: BP 144/79; PULSE 114; RESP 17
== END 2022-11-05 13:15 | disposition other institution (70) | DRG 773 ==
LOC: YASAS 11:51 → Y6N 13:43
PROVIDERS: ADMIT Allergy & Immunology; ATTEND Surgery
PROC: HZ2ZZZZ Detoxification Services for Substance Abuse Treatment (ICD-10-PCS; principal; 2022-11-01)
DX: F11.23 Opioid dependence with withdrawal (principal); F10.230 Alcohol dependence with withdrawal, uncomplicated; F14.20 Cocaine dependence, uncomplicated; F17.210 Nicotine dependence, cigarettes, uncomplicated; F19.282 Other psychoactive substance dependence with psychoactive substance-induced sleep disorder; F31.9 Bipolar disorder, unspecified; G47.00 Insomnia, unspecified; R76.11 Nonspecific reaction to tuberculin skin test without active tuberculosis; Z87.09 Personal history of other diseases of the respiratory system
CPT/HCPCS: 36415; 80053; 82140; 85027; 86780; 87389; 87811; 93005; 93010; C9803-CS; Q0162; U0003; U0005

== ENCOUNTER 2022-11-05 14:54 | Inpatient (IN) | payer OTHER ==
[2022-11-05] MEDS ORDERED: NALOXONE HCL (KLOXXADO) 8 MG SPRAY NS PRN (15:06)
[2022-11-05] MEDS ORDERED: guaiFENesin 600 MG TABLET.ER (FP) PO PRN (15:06)
[2022-11-05] MEDS ORDERED: BENZOCAINE/MENTHOL (CHLORASEPTIC ) LOZENGE MM PRN (15:06)
[2022-11-05] MEDS ORDERED: METHOCARBAMOL 500 MG TABLET PO PRN (15:06)
[2022-11-05] MEDS ORDERED: ACETAMINOPHEN 325 MG TABLET (FP) PO PRN (15:06)
[2022-11-05] MEDS ORDERED: NALOXONE HCL 0.4 MG/ML VIAL IVPUSH PRN (15:06)
[2022-11-05] MEDS ORDERED: LOPERAMIDE HCL 2 MG CAPSULE PO PRN (15:06)
[2022-11-05] MEDS ORDERED: BENZONATATE 200 MG CAPSULE PO PRN (15:06)
[2022-11-05] MEDS ORDERED: MAGNESIUM HYDROX 2400MG/30ML ORAL SUSPENSION 30 ML CUP PO PRN (15:06)
[2022-11-05] MEDS ORDERED: POLYETHYLENE GLYCOL (HEALTHYLAX) 3350 17 GM PACKET PO PRN (15:06)
[2022-11-05] MEDS ORDERED: BENZTROPINE MESYLATE 1 MG TABLET PO SCH (22:00)
[2022-11-05] MEDS: BENZTROPINE MESYLATE 1 MG TABLET PO SCH (22:05)
[2022-11-05] MEDS: MIRTAZAPINE 15 MG TABLET (FP) PO SCH (22:05)
[2022-11-05] MEDS: MELATONIN 5 MG TABLETS PO SCH (22:05)
[2022-11-05] MEDS: THIAMINE HCL 100 MG TABLET (FP) PO SCH (22:05)
[2022-11-06] MEDS: methaDONE HCL 40 MG DISPERSABLE TABLET PO SCH (06:15)
[2022-11-06] MEDS: NICOTINE 7 MG/24 HOURS TOPICAL PATCH TD SCH (09:53)
[2022-11-06] MEDS: PRENATAL VITAMINS W/ FOLIC ACID TABLET (FP) PO SCH (09:53)
[2022-11-06] MEDS: VENLAFAXINE HCL 75 MG E.R. CAPSULES PO SCH (09:53)
[2022-11-06] MEDS: BENZTROPINE MESYLATE 1 MG TABLET PO SCH ×2 (09:54→21:43)
[2022-11-06] MEDS: LURASIDONE HCL 40 MG TABLET PO SCH (12:14)
[2022-11-06] MEDS: THIAMINE HCL 100 MG TABLET (FP) PO SCH (21:43)
[2022-11-06] MEDS: MELATONIN 5 MG TABLETS PO SCH (21:43)
[2022-11-06] MEDS: MIRTAZAPINE 15 MG TABLET (FP) PO SCH (21:43)
[2022-11-07] MEDS: methaDONE HCL 40 MG DISPERSABLE TABLET PO SCH (06:09)
[2022-11-07] MEDS: NICOTINE 7 MG/24 HOURS TOPICAL PATCH TD SCH (09:26)
[2022-11-07] MEDS: VENLAFAXINE HCL 75 MG E.R. CAPSULES PO SCH (09:26)
[2022-11-07] MEDS: LURASIDONE HCL 40 MG TABLET PO SCH (09:26)
[2022-11-07] MEDS: PRENATAL VITAMINS W/ FOLIC ACID TABLET (FP) PO SCH (09:26)
[2022-11-07] MEDS: BENZTROPINE MESYLATE 1 MG TABLET PO SCH ×2 (09:26→21:04)
[2022-11-07] MEDS: MELATONIN 5 MG TABLETS PO SCH (21:04)
[2022-11-07] MEDS: MIRTAZAPINE 15 MG TABLET (FP) PO SCH (21:04)
[2022-11-07] MEDS: THIAMINE HCL 100 MG TABLET (FP) PO SCH (21:04)
[2022-11-08] MEDS: methaDONE HCL 40 MG DISPERSABLE TABLET PO SCH (05:57)
[2022-11-08] MEDS: LURASIDONE HCL 40 MG TABLET PO SCH (08:50)
[2022-11-08] MEDS: BENZTROPINE MESYLATE 1 MG TABLET PO SCH ×2 (08:50→21:32)
[2022-11-08] MEDS: VENLAFAXINE HCL 75 MG E.R. CAPSULES PO SCH (10:06)
[2022-11-08] MEDS: NICOTINE 7 MG/24 HOURS TOPICAL PATCH TD SCH (10:07)
[2022-11-08] MEDS: PRENATAL VITAMINS W/ FOLIC ACID TABLET (FP) PO SCH (10:07)
[2022-11-08] MEDS: MELATONIN 5 MG TABLETS PO SCH (21:32)
[2022-11-08] MEDS: THIAMINE HCL 100 MG TABLET (FP) PO SCH (21:32)
[2022-11-08] MEDS: MIRTAZAPINE 15 MG TABLET (FP) PO SCH (21:32)
[2022-11-09] MEDS: methaDONE HCL 40 MG DISPERSABLE TABLET PO SCH (05:49)
[2022-11-09] MEDS: PRENATAL VITAMINS W/ FOLIC ACID TABLET (FP) PO SCH (10:12)
[2022-11-09] MEDS: LURASIDONE HCL 40 MG TABLET PO SCH (10:12)
[2022-11-09] MEDS: NICOTINE 7 MG/24 HOURS TOPICAL PATCH TD SCH (10:12)
[2022-11-09] MEDS: VENLAFAXINE HCL 75 MG E.R. CAPSULES PO SCH (10:12)
[2022-11-09] MEDS: BENZTROPINE MESYLATE 1 MG TABLET PO SCH ×2 (10:12→21:00)
[2022-11-09] MEDS: NICOTINE 10 MG CARTRIDGE (INHALER) IH PRN ×2 (12:46→21:00)
[2022-11-09] MEDS: MELATONIN 5 MG TABLETS PO SCH (21:00)
[2022-11-09] MEDS: MIRTAZAPINE 15 MG TABLET (FP) PO SCH (21:00)
[2022-11-09] MEDS: THIAMINE HCL 100 MG TABLET (FP) PO SCH (21:00)
[2022-11-10] MEDS: methaDONE HCL 40 MG DISPERSABLE TABLET PO SCH (06:15)
[2022-11-10] MEDS: NICOTINE 10 MG CARTRIDGE (INHALER) IH PRN ×3 (07:01→21:24)
[2022-11-10] MEDS: BENZTROPINE MESYLATE 1 MG TABLET PO SCH ×2 (09:00→21:23)
[2022-11-10] MEDS: LURASIDONE HCL 40 MG TABLET PO SCH (09:00)
[2022-11-10] MEDS: VENLAFAXINE HCL 75 MG E.R. CAPSULES PO SCH (09:00)
[2022-11-10] MEDS: NICOTINE 7 MG/24 HOURS TOPICAL PATCH TD SCH (09:00)
[2022-11-10] MEDS: PRENATAL VITAMINS W/ FOLIC ACID TABLET (FP) PO SCH (09:00)
[2022-11-10] MEDS: IBUPROFEN 600 MG TABLET (FP) PO PRN (14:14)
[2022-11-10] MEDS: MIRTAZAPINE 15 MG TABLET (FP) PO SCH (21:23)
[2022-11-10] MEDS: THIAMINE HCL 100 MG TABLET (FP) PO SCH (21:23)
[2022-11-10] MEDS: MELATONIN 5 MG TABLETS PO SCH (21:23)
[2022-11-11] MEDS: methaDONE HCL 40 MG DISPERSABLE TABLET PO SCH (06:19)
[2022-11-11] MEDS: BENZTROPINE MESYLATE 1 MG TABLET PO SCH ×2 (08:59→21:37)
[2022-11-11] MEDS: LURASIDONE HCL 40 MG TABLET PO SCH (10:26)
[2022-11-11] MEDS: VENLAFAXINE HCL 75 MG E.R. CAPSULES PO SCH (10:26)
[2022-11-11] MEDS: PRENATAL VITAMINS W/ FOLIC ACID TABLET (FP) PO SCH (10:27)
[2022-11-11] MEDS: NICOTINE 10 MG CARTRIDGE (INHALER) IH PRN ×2 (10:27→21:38)
[2022-11-11] MEDS: NICOTINE 7 MG/24 HOURS TOPICAL PATCH TD SCH (10:28)
[2022-11-11] MEDS: MIRTAZAPINE 15 MG TABLET (FP) PO SCH (21:37)
[2022-11-11] MEDS: MELATONIN 5 MG TABLETS PO SCH (21:37)
[2022-11-11] MEDS: THIAMINE HCL 100 MG TABLET (FP) PO SCH (21:37)
[2022-11-12] MEDS: methaDONE HCL 40 MG DISPERSABLE TABLET PO SCH (06:16)
[2022-11-12] MEDS: NICOTINE 10 MG CARTRIDGE (INHALER) IH PRN ×2 (06:16→19:36)
[2022-11-12] MEDS: BENZTROPINE MESYLATE 1 MG TABLET PO SCH ×2 (09:03→21:25)
[2022-11-12] MEDS: VENLAFAXINE HCL 75 MG E.R. CAPSULES PO SCH (09:03)
[2022-11-12] MEDS: PRENATAL VITAMINS W/ FOLIC ACID TABLET (FP) PO SCH (09:03)
[2022-11-12] MEDS: LURASIDONE HCL 40 MG TABLET PO SCH (09:03)
[2022-11-12] MEDS: NICOTINE 7 MG/24 HOURS TOPICAL PATCH TD SCH (09:04)
[2022-11-12] MEDS: DOCUSATE SODIUM 100 MG CAPSULE (FP) PO SCH ×2 (13:10→21:25)
[2022-11-12] MEDS: MAG HYDROX/AL HYDROX/SIMETH 30 ML UNIT-DOSE CUP PO PRN (19:35)
[2022-11-12] MEDS: THIAMINE HCL 100 MG TABLET (FP) PO SCH (21:24)
[2022-11-12] MEDS: MELATONIN 5 MG TABLETS PO SCH (21:24)
[2022-11-12] MEDS: MIRTAZAPINE 15 MG TABLET (FP) PO SCH (21:25)
[2022-11-13] MEDS: DOCUSATE SODIUM 100 MG CAPSULE (FP) PO SCH ×3 (06:24→21:02)
[2022-11-13] MEDS: methaDONE HCL 40 MG DISPERSABLE TABLET PO SCH (06:24)
[2022-11-13] MEDS: PRENATAL VITAMINS W/ FOLIC ACID TABLET (FP) PO SCH (09:04)
[2022-11-13] MEDS: LURASIDONE HCL 40 MG TABLET PO SCH (09:04)
[2022-11-13] MEDS: NICOTINE 7 MG/24 HOURS TOPICAL PATCH TD SCH (09:05)
[2022-11-13] MEDS: BENZTROPINE MESYLATE 1 MG TABLET PO SCH ×2 (09:05→21:02)
[2022-11-13] MEDS: NICOTINE 10 MG CARTRIDGE (INHALER) IH PRN ×2 (09:05→21:03)
[2022-11-13] MEDS: VENLAFAXINE HCL 75 MG E.R. CAPSULES PO SCH (09:05)
[2022-11-13] MEDS: MAG HYDROX/AL HYDROX/SIMETH 30 ML UNIT-DOSE CUP PO PRN (11:31)
[2022-11-13] MEDS: MIRTAZAPINE 15 MG TABLET (FP) PO SCH (21:02)
[2022-11-13] MEDS: MELATONIN 5 MG TABLETS PO SCH (21:02)
[2022-11-13] MEDS: THIAMINE HCL 100 MG TABLET (FP) PO SCH (21:03)
[2022-11-14] MEDS: NICOTINE 10 MG CARTRIDGE (INHALER) IH PRN (05:54)
[2022-11-14] MEDS: methaDONE HCL 40 MG DISPERSABLE TABLET PO SCH (05:54)
[2022-11-14] MEDS: DOCUSATE SODIUM 100 MG CAPSULE (FP) PO SCH ×3 (05:55→21:24)
[2022-11-14] MEDS: BENZTROPINE MESYLATE 1 MG TABLET PO SCH ×2 (09:35→21:24)
[2022-11-14] MEDS: VENLAFAXINE HCL 75 MG E.R. CAPSULES PO SCH (09:35)
[2022-11-14] MEDS: NICOTINE 7 MG/24 HOURS TOPICAL PATCH TD SCH (09:35)
[2022-11-14] MEDS: PRENATAL VITAMINS W/ FOLIC ACID TABLET (FP) PO SCH (09:35)
[2022-11-14] MEDS: LURASIDONE HCL 40 MG TABLET PO SCH (09:35)
[2022-11-14] MEDS: THIAMINE HCL 100 MG TABLET (FP) PO SCH (21:24)
[2022-11-14] MEDS: MELATONIN 5 MG TABLETS PO SCH (21:24)
[2022-11-14] MEDS: MIRTAZAPINE 15 MG TABLET (FP) PO SCH (21:24)
[2022-11-15] MEDS: DOCUSATE SODIUM 100 MG CAPSULE (FP) PO SCH ×3 (06:27→21:02)
[2022-11-15] MEDS: methaDONE HCL 40 MG DISPERSABLE TABLET PO SCH (06:27)
[2022-11-15] MEDS: NICOTINE 10 MG CARTRIDGE (INHALER) IH PRN ×3 (06:42→21:03)
[2022-11-15] MEDS: VENLAFAXINE HCL 75 MG E.R. CAPSULES PO SCH (09:03)
[2022-11-15] MEDS: BENZTROPINE MESYLATE 1 MG TABLET PO SCH ×2 (09:03→21:03)
[2022-11-15] MEDS: NICOTINE 7 MG/24 HOURS TOPICAL PATCH TD SCH (09:03)
[2022-11-15] MEDS: PRENATAL VITAMINS W/ FOLIC ACID TABLET (FP) PO SCH (09:03)
[2022-11-15] MEDS: LURASIDONE HCL 40 MG TABLET PO SCH (09:04)
[2022-11-15] MEDS: MIRTAZAPINE 15 MG TABLET (FP) PO SCH (21:02)
[2022-11-15] MEDS: THIAMINE HCL 100 MG TABLET (FP) PO SCH (21:02)
[2022-11-15] MEDS: MELATONIN 5 MG TABLETS PO SCH (21:03)
[2022-11-16] MEDS: DOCUSATE SODIUM 100 MG CAPSULE (FP) PO SCH ×3 (06:01→21:40)
[2022-11-16] MEDS: methaDONE HCL 40 MG DISPERSABLE TABLET PO SCH (06:01)
[2022-11-16] MEDS: VENLAFAXINE HCL 75 MG E.R. CAPSULES PO SCH (09:11)
[2022-11-16] MEDS: BENZTROPINE MESYLATE 1 MG TABLET PO SCH ×2 (09:11→21:40)
[2022-11-16] MEDS: LURASIDONE HCL 40 MG TABLET PO SCH (09:12)
[2022-11-16] MEDS: NICOTINE 10 MG CARTRIDGE (INHALER) IH PRN ×2 (09:12→14:30)
[2022-11-16] MEDS: NICOTINE 7 MG/24 HOURS TOPICAL PATCH TD SCH (09:12)
[2022-11-16] MEDS: PRENATAL VITAMINS W/ FOLIC ACID TABLET (FP) PO SCH (09:12)
[2022-11-16] MEDS: IBUPROFEN 600 MG TABLET (FP) PO PRN ×2 (15:01→21:41)
[2022-11-16] MEDS: BENZOCAINE 20 % GEL TUBE MM PRN (16:51)
[2022-11-16] MEDS: PRAZOSIN HCL 1 MG CAPSULE PO SCH (21:40)
[2022-11-16] MEDS: MELATONIN 5 MG TABLETS PO SCH (21:40)
[2022-11-16] MEDS: THIAMINE HCL 100 MG TABLET (FP) PO SCH (21:40)
[2022-11-16] MEDS: MIRTAZAPINE 15 MG TABLET (FP) PO SCH (21:40)
[2022-11-17] MEDS: methaDONE HCL 40 MG DISPERSABLE TABLET PO SCH (06:44)
[2022-11-17] MEDS: IBUPROFEN 400 MG TABLET (FP) PO PRN ×2 (06:45→21:08)
[2022-11-17] MEDS: DOCUSATE SODIUM 100 MG CAPSULE (FP) PO SCH ×3 (06:45→21:07)
[2022-11-17] MEDS: NICOTINE 10 MG CARTRIDGE (INHALER) IH PRN ×3 (06:46→21:09)
[2022-11-17] MEDS: NICOTINE 7 MG/24 HOURS TOPICAL PATCH TD SCH (09:04)
[2022-11-17] MEDS: VENLAFAXINE HCL 75 MG E.R. CAPSULES PO SCH (09:04)
[2022-11-17] MEDS: LURASIDONE HCL 40 MG TABLET PO SCH (09:04)
[2022-11-17] MEDS: BENZTROPINE MESYLATE 1 MG TABLET PO SCH ×2 (09:04→21:08)
[2022-11-17] MEDS: PRENATAL VITAMINS W/ FOLIC ACID TABLET (FP) PO SCH (09:04)
[2022-11-17] MEDS: BENZOCAINE 20 % GEL TUBE MM PRN ×2 (09:44→19:27)
[2022-11-17] MEDS: AMOX TR/POT CLAV 500MG/125MG TABLETS (FP) PO SCH ×2 (13:21→17:14)
[2022-11-17] MEDS: IBUPROFEN 600 MG TABLET (FP) PO PRN (13:22)
[2022-11-17] MEDS: MIRTAZAPINE 15 MG TABLET (FP) PO SCH (21:07)
[2022-11-17] MEDS: PRAZOSIN HCL 1 MG CAPSULE PO SCH (21:07)
[2022-11-17] MEDS: THIAMINE HCL 100 MG TABLET (FP) PO SCH (21:08)
[2022-11-17] MEDS: MELATONIN 5 MG TABLETS PO SCH (21:08)
[2022-11-18] MEDS: NICOTINE 10 MG CARTRIDGE (INHALER) IH PRN ×3 (06:24→21:17)
[2022-11-18] MEDS: methaDONE HCL 40 MG DISPERSABLE TABLET PO SCH (06:25)
[2022-11-18] MEDS: DOCUSATE SODIUM 100 MG CAPSULE (FP) PO SCH ×3 (06:26→21:12)
[2022-11-18] MEDS: IBUPROFEN 400 MG TABLET (FP) PO PRN (06:26)
[2022-11-18] MEDS: AMOX TR/POT CLAV 500MG/125MG TABLETS (FP) PO SCH ×2 (07:02→17:16)
[2022-11-18] MEDS: VENLAFAXINE HCL 75 MG E.R. CAPSULES PO SCH (10:37)
[2022-11-18] MEDS: PRENATAL VITAMINS W/ FOLIC ACID TABLET (FP) PO SCH (10:37)
[2022-11-18] MEDS: BENZTROPINE MESYLATE 1 MG TABLET PO SCH ×2 (10:37→21:12)
[2022-11-18] MEDS: LURASIDONE HCL 40 MG TABLET PO SCH (10:37)
[2022-11-18] MEDS: NICOTINE 7 MG/24 HOURS TOPICAL PATCH TD SCH (10:38)
[2022-11-18] MEDS: IBUPROFEN 600 MG TABLET (FP) PO PRN ×2 (10:40→21:15)
[2022-11-18] MEDS: BENZOCAINE 20 % GEL TUBE MM PRN ×2 (10:41→17:17)
[2022-11-18] MEDS: MIRTAZAPINE 15 MG TABLET (FP) PO SCH (21:12)
[2022-11-18] MEDS: MELATONIN 5 MG TABLETS PO SCH (21:16)
[2022-11-18] MEDS: THIAMINE HCL 100 MG TABLET (FP) PO SCH (22:43)
[2022-11-18] MEDS: PRAZOSIN HCL 1 MG CAPSULE PO SCH (22:43)
[2022-11-19] MEDS: DOCUSATE SODIUM 100 MG CAPSULE (FP) PO SCH ×3 (06:16→21:12)
[2022-11-19] MEDS: methaDONE HCL 40 MG DISPERSABLE TABLET PO SCH (06:16)
[2022-11-19] MEDS: AMOX TR/POT CLAV 500MG/125MG TABLETS (FP) PO SCH ×2 (07:17→17:55)
[2022-11-19] MEDS: BENZTROPINE MESYLATE 1 MG TABLET PO SCH ×2 (09:28→21:12)
[2022-11-19] MEDS: LURASIDONE HCL 40 MG TABLET PO SCH (09:29)
[2022-11-19] MEDS: IBUPROFEN 600 MG TABLET (FP) PO PRN (09:43)
[2022-11-19] MEDS: VENLAFAXINE HCL 75 MG E.R. CAPSULES PO SCH (09:43)
[2022-11-19] MEDS: NICOTINE 7 MG/24 HOURS TOPICAL PATCH TD SCH (09:44)
[2022-11-19] MEDS: PRENATAL VITAMINS W/ FOLIC ACID TABLET (FP) PO SCH (09:44)
[2022-11-19] MEDS: NICOTINE 10 MG CARTRIDGE (INHALER) IH PRN ×2 (09:46→21:13)
[2022-11-19] MEDS: BENZOCAINE 20 % GEL TUBE MM PRN (09:47)
[2022-11-19] MEDS: IBUPROFEN 400 MG TABLET (FP) PO PRN (21:10)
[2022-11-19] MEDS: THIAMINE HCL 100 MG TABLET (FP) PO SCH (21:11)
[2022-11-19] MEDS: MELATONIN 5 MG TABLETS PO SCH (21:12)
[2022-11-19] MEDS: MIRTAZAPINE 15 MG TABLET (FP) PO SCH (21:12)
[2022-11-19] MEDS: PRAZOSIN HCL 1 MG CAPSULE PO SCH (21:13)
[2022-11-20] MEDS: DOCUSATE SODIUM 100 MG CAPSULE (FP) PO SCH ×3 (06:10→21:02)
[2022-11-20] MEDS: methaDONE HCL 40 MG DISPERSABLE TABLET PO SCH (06:10)
[2022-11-20] MEDS: NICOTINE 10 MG CARTRIDGE (INHALER) IH PRN ×2 (07:06→17:31)
[2022-11-20] MEDS: AMOX TR/POT CLAV 500MG/125MG TABLETS (FP) PO SCH ×2 (07:43→17:30)
[2022-11-20] MEDS: PRENATAL VITAMINS W/ FOLIC ACID TABLET (FP) PO SCH (09:24)
[2022-11-20] MEDS: BENZTROPINE MESYLATE 1 MG TABLET PO SCH ×2 (09:24→21:01)
[2022-11-20] MEDS: LURASIDONE HCL 40 MG TABLET PO SCH (09:24)
[2022-11-20] MEDS: NICOTINE 7 MG/24 HOURS TOPICAL PATCH TD SCH (09:25)
[2022-11-20] MEDS: VENLAFAXINE HCL 75 MG E.R. CAPSULES PO SCH (09:26)
[2022-11-20] MEDS: IBUPROFEN 600 MG TABLET (FP) PO PRN ×2 (09:27→21:01)
[2022-11-20] MEDS: MELATONIN 5 MG TABLETS PO SCH (21:02)
[2022-11-20] MEDS: PRAZOSIN HCL 1 MG CAPSULE PO SCH (21:02)
[2022-11-20] MEDS: MIRTAZAPINE 15 MG TABLET (FP) PO SCH (21:02)
[2022-11-20] MEDS: THIAMINE HCL 100 MG TABLET (FP) PO SCH (21:02)
[2022-11-20] MEDS ORDERED: PRAZOSIN HCL 1 MG CAPSULE PO SCH (22:00)
[2022-11-21] MEDS: methaDONE HCL 40 MG DISPERSABLE TABLET PO SCH (06:28)
[2022-11-21] MEDS: NICOTINE 10 MG CARTRIDGE (INHALER) IH PRN ×4 (06:28→21:26)
[2022-11-21] MEDS: DOCUSATE SODIUM 100 MG CAPSULE (FP) PO SCH ×3 (06:29→21:25)
[2022-11-21] MEDS: AMOX TR/POT CLAV 500MG/125MG TABLETS (FP) PO SCH ×2 (07:09→17:16)
[2022-11-21] MEDS: LURASIDONE HCL 40 MG TABLET PO SCH (09:27)
[2022-11-21] MEDS: BENZTROPINE MESYLATE 1 MG TABLET PO SCH ×2 (09:27→21:25)
[2022-11-21] MEDS: VENLAFAXINE HCL 75 MG E.R. CAPSULES PO SCH (09:27)
[2022-11-21] MEDS: PRENATAL VITAMINS W/ FOLIC ACID TABLET (FP) PO SCH (09:27)
[2022-11-21] MEDS: NICOTINE 7 MG/24 HOURS TOPICAL PATCH TD SCH (09:27)
[2022-11-21] MEDS: IBUPROFEN 600 MG TABLET (FP) PO PRN (09:28)
[2022-11-21] MEDS: THIAMINE HCL 100 MG TABLET (FP) PO SCH (21:25)
[2022-11-21] MEDS: MIRTAZAPINE 15 MG TABLET (FP) PO SCH (21:25)
[2022-11-21] MEDS: PRAZOSIN HCL 1 MG CAPSULE PO SCH (21:25)
[2022-11-21] MEDS: MELATONIN 5 MG TABLETS PO SCH (21:25)
[2022-11-21] MEDS: IBUPROFEN 400 MG TABLET (FP) PO PRN (21:26)
[2022-11-22] MEDS: methaDONE HCL 40 MG DISPERSABLE TABLET PO SCH (06:21)
[2022-11-22] MEDS: DOCUSATE SODIUM 100 MG CAPSULE (FP) PO SCH ×3 (06:22→21:06)
[2022-11-22] MEDS: NICOTINE 10 MG CARTRIDGE (INHALER) IH PRN ×2 (06:22→16:44)
[2022-11-22] MEDS: AMOX TR/POT CLAV 500MG/125MG TABLETS (FP) PO SCH ×2 (07:21→16:45)
[2022-11-22] MEDS: LURASIDONE HCL 40 MG TABLET PO SCH (09:38)
[2022-11-22] MEDS: PRENATAL VITAMINS W/ FOLIC ACID TABLET (FP) PO SCH (09:38)
[2022-11-22] MEDS: BENZTROPINE MESYLATE 1 MG TABLET PO SCH ×2 (09:39→21:06)
[2022-11-22] MEDS: VENLAFAXINE HCL 75 MG E.R. CAPSULES PO SCH (09:39)
[2022-11-22] MEDS: NICOTINE 7 MG/24 HOURS TOPICAL PATCH TD SCH (09:39)
[2022-11-22] MEDS: IBUPROFEN 600 MG TABLET (FP) PO PRN (09:40)
[2022-11-22] MEDS: IBUPROFEN 400 MG TABLET (FP) PO PRN (16:17)
[2022-11-22] MEDS: PRAZOSIN HCL 1 MG CAPSULE PO SCH (21:06)
[2022-11-22] MEDS: MIRTAZAPINE 15 MG TABLET (FP) PO SCH (21:06)
[2022-11-22] MEDS: THIAMINE HCL 100 MG TABLET (FP) PO SCH (21:07)
[2022-11-22] MEDS: MELATONIN 5 MG TABLETS PO SCH (21:07)
[2022-11-23] MEDS: DOCUSATE SODIUM 100 MG CAPSULE (FP) PO SCH ×3 (06:32→21:26)
[2022-11-23] MEDS: methaDONE HCL 40 MG DISPERSABLE TABLET PO SCH (06:32)
[2022-11-23] MEDS: NICOTINE 10 MG CARTRIDGE (INHALER) IH PRN ×4 (06:37→21:27)
[2022-11-23] MEDS: AMOX TR/POT CLAV 500MG/125MG TABLETS (FP) PO SCH ×2 (07:06→16:34)
[2022-11-23] MEDS: NICOTINE 7 MG/24 HOURS TOPICAL PATCH TD SCH (09:01)
[2022-11-23] MEDS: LURASIDONE HCL 40 MG TABLET PO SCH (09:01)
[2022-11-23] MEDS: BENZTROPINE MESYLATE 1 MG TABLET PO SCH ×2 (09:01→21:26)
[2022-11-23] MEDS: VENLAFAXINE HCL 75 MG E.R. CAPSULES PO SCH (09:01)
[2022-11-23] MEDS: PRENATAL VITAMINS W/ FOLIC ACID TABLET (FP) PO SCH (09:01)
[2022-11-23] MEDS: PRAZOSIN HCL 1 MG CAPSULE PO SCH (21:26)
[2022-11-23] MEDS: MELATONIN 5 MG TABLETS PO SCH (21:26)
[2022-11-23] MEDS: MIRTAZAPINE 15 MG TABLET (FP) PO SCH (21:26)
[2022-11-23] MEDS: THIAMINE HCL 100 MG TABLET (FP) PO SCH (21:50)
[2022-11-24] MEDS: DOCUSATE SODIUM 100 MG CAPSULE (FP) PO SCH ×3 (05:54→21:03)
[2022-11-24] MEDS: methaDONE HCL 40 MG DISPERSABLE TABLET PO SCH (05:54)
[2022-11-24] MEDS: AMOX TR/POT CLAV 500MG/125MG TABLETS (FP) PO SCH (07:07)
[2022-11-24] MEDS: PRENATAL VITAMINS W/ FOLIC ACID TABLET (FP) PO SCH (09:06)
[2022-11-24] MEDS: LURASIDONE HCL 40 MG TABLET PO SCH (09:06)
[2022-11-24] MEDS: VENLAFAXINE HCL 75 MG E.R. CAPSULES PO SCH (09:06)
[2022-11-24] MEDS: BENZTROPINE MESYLATE 1 MG TABLET PO SCH ×2 (09:06→21:03)
[2022-11-24] MEDS: NICOTINE 7 MG/24 HOURS TOPICAL PATCH TD SCH (09:07)
[2022-11-24] MEDS: NICOTINE 10 MG CARTRIDGE (INHALER) IH PRN ×2 (09:09→18:53)
[2022-11-24] MEDS: THIAMINE HCL 100 MG TABLET (FP) PO SCH (21:03)
[2022-11-24] MEDS: MELATONIN 5 MG TABLETS PO SCH (21:03)
[2022-11-24] MEDS: MIRTAZAPINE 15 MG TABLET (FP) PO SCH (21:03)
[2022-11-24] MEDS: PRAZOSIN HCL 1 MG CAPSULE PO SCH (21:04)
[2022-11-25] MEDS: methaDONE HCL 40 MG DISPERSABLE TABLET PO SCH (06:15)
[2022-11-25] MEDS: DOCUSATE SODIUM 100 MG CAPSULE (FP) PO SCH ×3 (06:15→21:38)
[2022-11-25] MEDS: VENLAFAXINE HCL 75 MG E.R. CAPSULES PO SCH (09:34)
[2022-11-25] MEDS: LURASIDONE HCL 40 MG TABLET PO SCH (09:34)
[2022-11-25] MEDS: BENZTROPINE MESYLATE 1 MG TABLET PO SCH ×2 (09:34→21:38)
[2022-11-25] MEDS: NICOTINE 7 MG/24 HOURS TOPICAL PATCH TD SCH (09:34)
[2022-11-25] MEDS: PRENATAL VITAMINS W/ FOLIC ACID TABLET (FP) PO SCH (09:34)
[2022-11-25] MEDS: NICOTINE 10 MG CARTRIDGE (INHALER) IH PRN ×2 (13:32→21:40)
[2022-11-25] MEDS: THIAMINE HCL 100 MG TABLET (FP) PO SCH (21:38)
[2022-11-25] MEDS: MIRTAZAPINE 15 MG TABLET (FP) PO SCH (21:38)
[2022-11-25] MEDS: MELATONIN 5 MG TABLETS PO SCH (21:39)
[2022-11-25] MEDS: PRAZOSIN HCL 1 MG CAPSULE PO SCH (21:39)
[2022-11-26] MEDS: DOCUSATE SODIUM 100 MG CAPSULE (FP) PO SCH ×3 (06:22→21:00)
[2022-11-26] MEDS: methaDONE HCL 40 MG DISPERSABLE TABLET PO SCH (06:22)
[2022-11-26] MEDS: LURASIDONE HCL 40 MG TABLET PO SCH (09:03)
[2022-11-26] MEDS: PRENATAL VITAMINS W/ FOLIC ACID TABLET (FP) PO SCH (09:03)
[2022-11-26] MEDS: VENLAFAXINE HCL 75 MG E.R. CAPSULES PO SCH (09:03)
[2022-11-26] MEDS: BENZTROPINE MESYLATE 1 MG TABLET PO SCH ×2 (09:03→21:00)
[2022-11-26] MEDS: NICOTINE 10 MG CARTRIDGE (INHALER) IH PRN ×3 (09:03→21:00)
[2022-11-26] MEDS: NICOTINE 7 MG/24 HOURS TOPICAL PATCH TD SCH (10:08)
[2022-11-26] MEDS: MIRTAZAPINE 15 MG TABLET (FP) PO SCH (21:00)
[2022-11-26] MEDS: MELATONIN 5 MG TABLETS PO SCH (21:00)
[2022-11-26] MEDS: PRAZOSIN HCL 1 MG CAPSULE PO SCH (21:00)
[2022-11-26] MEDS: THIAMINE HCL 100 MG TABLET (FP) PO SCH (21:00)
[2022-11-27] MEDS: NICOTINE 10 MG CARTRIDGE (INHALER) IH PRN ×3 (06:15→21:46)
[2022-11-27] MEDS: DOCUSATE SODIUM 100 MG CAPSULE (FP) PO SCH ×3 (06:17→21:46)
[2022-11-27] MEDS: methaDONE HCL 40 MG DISPERSABLE TABLET PO SCH (07:04)
[2022-11-27 07:05] VITALS: RESP 18
[2022-11-27] MEDS: LURASIDONE HCL 40 MG TABLET PO SCH (09:37)
[2022-11-27] MEDS: PRENATAL VITAMINS W/ FOLIC ACID TABLET (FP) PO SCH (09:37)
[2022-11-27] MEDS: VENLAFAXINE HCL 75 MG E.R. CAPSULES PO SCH (09:37)
[2022-11-27] MEDS: NICOTINE 7 MG/24 HOURS TOPICAL PATCH TD SCH (09:37)
[2022-11-27] MEDS: BENZTROPINE MESYLATE 1 MG TABLET PO SCH ×2 (09:37→21:46)
[2022-11-27] MEDS: THIAMINE HCL 100 MG TABLET (FP) PO SCH (21:46)
[2022-11-27] MEDS: PRAZOSIN HCL 1 MG CAPSULE PO SCH (21:46)
[2022-11-27] MEDS: MIRTAZAPINE 15 MG TABLET (FP) PO SCH (21:46)
[2022-11-27] MEDS: MELATONIN 5 MG TABLETS PO SCH (21:46)
[2022-11-28] MEDS: DOCUSATE SODIUM 100 MG CAPSULE (FP) PO SCH (06:29)
[2022-11-28] MEDS: methaDONE HCL 40 MG DISPERSABLE TABLET PO SCH (06:29)
[2022-11-28] MEDS: NICOTINE 10 MG CARTRIDGE (INHALER) IH PRN (06:58)
[2022-11-28 07:17] VITALS: TEMP 97.1
[2022-11-28] MEDS: VENLAFAXINE HCL 75 MG E.R. CAPSULES PO SCH (09:05)
[2022-11-28] MEDS: PRENATAL VITAMINS W/ FOLIC ACID TABLET (FP) PO SCH (09:06)
[2022-11-28] MEDS: LURASIDONE HCL 40 MG TABLET PO SCH (09:06)
[2022-11-28] MEDS: BENZTROPINE MESYLATE 1 MG TABLET PO SCH (09:06)
[2022-11-28] MEDS: NICOTINE 7 MG/24 HOURS TOPICAL PATCH TD SCH (09:07)
[2022-11-28 09:19] VITALS: BP 138/84; PULSE 100
== END 2022-11-28 09:24 | disposition home or self-care (01) | DRG 772 ==
LOC: YASAS 14:54 → Y3W 14:57
PROVIDERS: ADMIT Allergy & Immunology; ATTEND Psychiatry & Neurology Pain Medicine
PROC: HZ42ZZZ Group Counseling for Substance Abuse Treatment, Cognitive-Behavioral (ICD-10-PCS; principal; 2022-11-05)
DX: F11.20 Opioid dependence, uncomplicated (principal); F10.20 Alcohol dependence, uncomplicated; F14.20 Cocaine dependence, uncomplicated; F13.20 Sedative, hypnotic or anxiolytic dependence, uncomplicated; F17.210 Nicotine dependence, cigarettes, uncomplicated; F19.282 Other psychoactive substance dependence with psychoactive substance-induced sleep disorder; F19.24 Other psychoactive substance dependence with psychoactive substance-induced mood disorder; F31.9 Bipolar disorder, unspecified; F20.9 Schizophrenia, unspecified; F41.8 Other specified anxiety disorders; J45.909 Unspecified asthma, uncomplicated; M54.50 Low back pain, unspecified; G89.29 Other chronic pain; Z86.19 Personal history of other infectious and parasitic diseases; Z86.11 Personal history of tuberculosis; Z99.89 Dependence on other enabling machines and devices
CPT/HCPCS: 36415; 86803; 87522

== ENCOUNTER 2023-01-03 12:59 | Inpatient (IN) | payer OTHER ==
[2023-01-03 14:43] VITALS: BMI 27.9
[2023-01-03] MEDS ORDERED: NICOTINE 10 MG CARTRIDGE (INHALER) IH PRN (15:16)
[2023-01-03] MEDS ORDERED: NALOXONE HCL 0.4 MG/ML VIAL IM PRN (15:16)
[2023-01-03] MEDS ORDERED: BISMUTH SUBSALICYLATE 524 MG/30 ML PO PRN (15:16)
[2023-01-03] MEDS ORDERED: LORazepam 1 MG TABLET PO PRN (15:16)
[2023-01-03] MEDS ORDERED: IBUPROFEN 600 MG TABLET (FP) PO PRN (15:16)
[2023-01-03] MEDS ORDERED: MAG HYDROX/AL HYDROX/SIMETH 30 ML UNIT-DOSE CUP PO PRN (15:16)
[2023-01-03] MEDS ORDERED: NALOXONE HCL (KLOXXADO) 8 MG SPRAY NS PRN (15:16)
[2023-01-03] MEDS ORDERED: LOPERAMIDE HCL 2 MG CAPSULE PO PRN (15:16)
[2023-01-03] MEDS ORDERED: ONDANSETRON *ODT* 4 MG TABLET SL PRN (15:16)
[2023-01-03] MEDS ORDERED: DICYCLOMINE HCL 10 MG CAPSULE PO PRN (15:16)
[2023-01-03] MEDS ORDERED: MAGNESIUM HYDROX 2400MG/30ML ORAL SUSPENSION 30 ML CUP PO PRN (15:16)
[2023-01-03] MEDS ORDERED: ACETAMINOPHEN 325 MG TABLET (FP) PO PRN (15:16)
[2023-01-03] MEDS ORDERED: IBUPROFEN 400 MG TABLET (FP) PO PRN (15:16)
[2023-01-03] MEDS ORDERED: BENZONATATE 200 MG CAPSULE PO PRN (15:16)
[2023-01-03] MEDS ORDERED: LORazepam 2 MG TABLET PO ONE (15:16)
[2023-01-03] MEDS ORDERED: guaiFENesin 600 MG TABLET.ER (FP) PO PRN (15:16)
[2023-01-03] MEDS ORDERED: POLYETHYLENE GLYCOL (HEALTHYLAX) 3350 17 GM PACKET PO PRN (15:16)
[2023-01-03] MEDS ORDERED: BENZOCAINE/MENTHOL (CHLORASEPTIC ) LOZENGE MM PRN (15:16)
[2023-01-03] MEDS: NICOTINE 14 MG/24 HOURS TOPICAL PATCH TD SCH (17:45)
[2023-01-03] MEDS: PRENATAL VITAMINS W/ FOLIC ACID TABLET (FP) PO SCH (17:46)
[2023-01-03] MEDS: LORazepam 2 MG TABLET PO SCH ×2 (17:47→22:11)
[2023-01-03] MEDS ORDERED: MELATONIN 5 MG TABLETS PO SCH (22:00)
[2023-01-03] MEDS: THIAMINE HCL 100 MG TABLET (FP) PO SCH (22:10)
[2023-01-04] MEDS: LORazepam 2 MG TABLET PO SCH ×4 (05:44→22:44)
[2023-01-04] MEDS: PANTOPRAZOLE 20 MG TABLET PO SCH (09:27)
[2023-01-04] MEDS: LURASIDONE HCL 40 MG TABLET PO SCH (09:28)
[2023-01-04] MEDS: BENZTROPINE MESYLATE 1 MG TABLET PO SCH ×2 (09:28→22:42)
[2023-01-04] MEDS: VENLAFAXINE HCL 75 MG E.R. CAPSULES PO SCH (09:28)
[2023-01-04] MEDS ORDERED: PATIENT'S OWN MEDICATION (NON-FORMULARY) (Omeprazole Magnesium [Prilosec Otc] 20 MG Tablet PO SCH (10:00)
[2023-01-04] MEDS ORDERED: LURASIDONE HCL 40 MG TABLET PO SCH (10:00)
[2023-01-04] MEDS ORDERED: MIRTAZAPINE 15 MG TABLET (FP) PO SCH (10:00)
[2023-01-04] MEDS ORDERED: BENZTROPINE MESYLATE 1 MG TABLET PO SCH (10:00)
[2023-01-04] MEDS: methaDONE HCL 40 MG DISPERSABLE TABLET PO SCH (10:05)
[2023-01-04] MEDS: NICOTINE 14 MG/24 HOURS TOPICAL PATCH TD SCH (10:06)
[2023-01-04] MEDS: PRENATAL VITAMINS W/ FOLIC ACID TABLET (FP) PO SCH (10:07)
[2023-01-04 11:31] LABS: HEMATOCRIT 35.6 % (35.4-49); HEMOGLOBIN 11.6 GM/dL (11.7-16.9); MCHC 32.8 g/dl (32.0-35.9); MEAN CELL VOLUME 79.2 fl (80-96); MEAN PLT VOLUME 9.9 fl (7.5-11.1); PLATELET COUNT 200 10^3/uL (134-434); RBC 4.49 M/mm3 (4.00-5.60); RDW 14.5 % (11.9-15.9); WHITE BLOOD COUNT 7.4 K/mm3 (4.0-10.0)
[2023-01-04 13:28] LABS: POTASSIUM 4.1 mmol/L (3.5-5.1)
[2023-01-04 13:34] LABS: CALCIUM 8.5 mg/dL (8.5-10.1)
[2023-01-04 13:35] LABS: ALBUMIN 3.2 g/dl (3.4-5.0); BLOOD UREA NITROGEN 8.4 mg/dL (7-18)
[2023-01-04 13:38] LABS: CREATININE 0.6 mg/dL (0.55-1.3)
[2023-01-04 13:39] LABS: BILIRUBIN,TOTAL 0.3 mg/dL (0.2-1); TOT PROT 6.8 g/dl (6.4-8.2)
[2023-01-04] MEDS: PRAZOSIN HCL 1 MG CAPSULE PO SCH (22:41)
[2023-01-04] MEDS: METHOCARBAMOL 500 MG TABLET PO PRN (22:41)
[2023-01-04] MEDS: hydrOXYzine PAMOATE 25 MG CAPSULE (FP) PO PRN (22:41)
[2023-01-04] MEDS: THIAMINE HCL 100 MG TABLET (FP) PO SCH (22:41)
[2023-01-04] MEDS: MIRTAZAPINE 15 MG TABLET (FP) PO SCH (22:43)
[2023-01-05] MEDS: LORazepam 1 MG TABLET PO SCH ×4 (05:53→22:32)
[2023-01-05] MEDS: methaDONE HCL 40 MG DISPERSABLE TABLET PO SCH (05:54)
[2023-01-05] MEDS: LURASIDONE HCL 40 MG TABLET PO SCH (09:23)
[2023-01-05] MEDS: BENZTROPINE MESYLATE 1 MG TABLET PO SCH ×2 (09:23→22:30)
[2023-01-05] MEDS: PRENATAL VITAMINS W/ FOLIC ACID TABLET (FP) PO SCH (09:24)
[2023-01-05] MEDS: PANTOPRAZOLE 20 MG TABLET PO SCH (09:24)
[2023-01-05] MEDS: VENLAFAXINE HCL 75 MG E.R. CAPSULES PO SCH (09:25)
[2023-01-05] MEDS: NICOTINE 14 MG/24 HOURS TOPICAL PATCH TD SCH (09:27)
[2023-01-05] MEDS: THIAMINE HCL 100 MG TABLET (FP) PO SCH (22:30)
[2023-01-05] MEDS: PRAZOSIN HCL 1 MG CAPSULE PO SCH (22:30)
[2023-01-05] MEDS: MIRTAZAPINE 15 MG TABLET (FP) PO SCH (22:31)
[2023-01-05] MEDS: METHOCARBAMOL 500 MG TABLET PO PRN (22:31)
[2023-01-05] MEDS: hydrOXYzine PAMOATE 25 MG CAPSULE (FP) PO PRN (22:31)
[2023-01-06] MEDS ORDERED: LORazepam 0.5 MG TABLET PO PRN
[2023-01-06] MEDS: LORazepam 0.5 MG TABLET PO SCH ×4 (05:55→22:22)
[2023-01-06] MEDS: methaDONE HCL 40 MG DISPERSABLE TABLET PO SCH (06:02)
[2023-01-06] MEDS: BENZTROPINE MESYLATE 1 MG TABLET PO SCH ×2 (09:51→22:21)
[2023-01-06] MEDS: LURASIDONE HCL 40 MG TABLET PO SCH (09:51)
[2023-01-06] MEDS: VENLAFAXINE HCL 75 MG E.R. CAPSULES PO SCH (09:51)
[2023-01-06] MEDS: PANTOPRAZOLE 20 MG TABLET PO SCH (09:51)
[2023-01-06] MEDS: PRENATAL VITAMINS W/ FOLIC ACID TABLET (FP) PO SCH (09:52)
[2023-01-06] MEDS: NICOTINE 14 MG/24 HOURS TOPICAL PATCH TD SCH (09:52)
[2023-01-06 18:28] VITALS: RESP 18
[2023-01-06] MEDS: PRAZOSIN HCL 1 MG CAPSULE PO SCH (22:20)
[2023-01-06] MEDS: THIAMINE HCL 100 MG TABLET (FP) PO SCH (22:21)
[2023-01-06] MEDS: MIRTAZAPINE 15 MG TABLET (FP) PO SCH (22:22)
[2023-01-07] MEDS ORDERED: LORazepam 0.5 MG TABLET PO ONE (05:00)
[2023-01-07] MEDS: methaDONE HCL 40 MG DISPERSABLE TABLET PO SCH (05:48)
[2023-01-07] MEDS: LURASIDONE HCL 40 MG TABLET PO SCH (09:39)
[2023-01-07] MEDS: BENZTROPINE MESYLATE 1 MG TABLET PO SCH (09:39)
[2023-01-07 09:57] VITALS: BP 158/127; PULSE 129; TEMP 98.7
== END 2023-01-07 11:11 | disposition home or self-care (01) | DRG 773 ==
LOC: YASAS 12:59 → Y3N 15:23
PROVIDERS: ADMIT Allergy & Immunology; ATTEND Surgery
PROC: HZ2ZZZZ Detoxification Services for Substance Abuse Treatment (ICD-10-PCS; principal; 2023-01-03)
DX: F13.230 Sedative, hypnotic or anxiolytic dependence with withdrawal, uncomplicated (principal); F11.20 Opioid dependence, uncomplicated; F10.20 Alcohol dependence, uncomplicated; F14.20 Cocaine dependence, uncomplicated; F17.210 Nicotine dependence, cigarettes, uncomplicated; F19.282 Other psychoactive substance dependence with psychoactive substance-induced sleep disorder; Z62.810 Personal history of physical and sexual abuse in childhood; Z86.19 Personal history of other infectious and parasitic diseases; Z87.09 Personal history of other diseases of the respiratory system
CPT/HCPCS: 36415; 80053; 85027; 86780; 87635

== ENCOUNTER 2023-02-07 13:25 | Inpatient (IN) | payer OTHER ==
[2023-02-07 14:12] VITALS: BMI 27.7
[2023-02-07] MEDS ORDERED: guaiFENesin 600 MG TABLET.ER (FP) PO PRN (16:39)
[2023-02-07] MEDS ORDERED: NICOTINE 10 MG CARTRIDGE (INHALER) IH PRN (16:39)
[2023-02-07] MEDS ORDERED: ACETAMINOPHEN 325 MG TABLET (FP) PO PRN (16:39)
[2023-02-07] MEDS ORDERED: diazePAM 5 MG TABLET PO PRN (16:39)
[2023-02-07] MEDS ORDERED: DICYCLOMINE HCL 10 MG CAPSULE PO PRN (16:39)
[2023-02-07] MEDS ORDERED: LOPERAMIDE HCL 2 MG CAPSULE PO PRN (16:39)
[2023-02-07] MEDS ORDERED: NALOXONE HCL (KLOXXADO) 8 MG SPRAY NS PRN (16:39)
[2023-02-07] MEDS ORDERED: MAGNESIUM HYDROX 2400MG/30ML ORAL SUSPENSION 30 ML CUP PO PRN (16:39)
[2023-02-07] MEDS ORDERED: NALOXONE HCL 0.4 MG/ML VIAL IM PRN (16:39)
[2023-02-07] MEDS ORDERED: ONDANSETRON *ODT* 4 MG TABLET SL PRN (16:39)
[2023-02-07] MEDS ORDERED: BENZONATATE 200 MG CAPSULE PO PRN (16:39)
[2023-02-07] MEDS ORDERED: IBUPROFEN 600 MG TABLET (FP) PO PRN (16:39)
[2023-02-07] MEDS ORDERED: BISMUTH SUBSALICYLATE 524 MG/30 ML PO PRN (16:39)
[2023-02-07] MEDS ORDERED: BENZOCAINE/MENTHOL (CHLORASEPTIC ) LOZENGE MM PRN (16:39)
[2023-02-07] MEDS ORDERED: POLYETHYLENE GLYCOL (HEALTHYLAX) 3350 17 GM PACKET PO PRN (16:39)
[2023-02-07] MEDS ORDERED: MAG HYDROX/AL HYDROX/SIMETH 30 ML UNIT-DOSE CUP PO PRN (16:39)
[2023-02-07] MEDS ORDERED: IBUPROFEN 400 MG TABLET (FP) PO PRN (16:39)
[2023-02-07] MEDS ORDERED: diazePAM 5 MG TABLET ONE (17:22)
[2023-02-07] MEDS: diazePAM 5 MG TABLET PO SCH ×4 (17:45→22:52)
[2023-02-07] MEDS: PRENATAL VITAMINS W/ FOLIC ACID TABLET (FP) PO SCH (18:34)
[2023-02-07] MEDS: NICOTINE 14 MG/24 HOURS TOPICAL PATCH TD SCH (18:36)
[2023-02-07] MEDS: THIAMINE HCL 100 MG TABLET (FP) PO SCH (22:49)
[2023-02-07] MEDS: MELATONIN 5 MG TABLETS PO SCH (22:49)
[2023-02-07] MEDS: hydrOXYzine PAMOATE 25 MG CAPSULE (FP) PO PRN (22:49)
[2023-02-07] MEDS: METHOCARBAMOL 500 MG TABLET PO PRN (22:49)
[2023-02-08] MEDS: diazePAM 5 MG TABLET PO SCH ×4 (05:34→22:34)
[2023-02-08] MEDS: methaDONE HCL 40 MG DISPERSABLE TABLET PO SCH (10:27)
[2023-02-08] MEDS: PRENATAL VITAMINS W/ FOLIC ACID TABLET (FP) PO SCH (10:29)
[2023-02-08] MEDS: NICOTINE 14 MG/24 HOURS TOPICAL PATCH TD SCH (10:30)
[2023-02-08] MEDS: PANTOPRAZOLE 20 MG TABLET PO SCH (10:31)
[2023-02-08] MEDS ORDERED: BENZTROPINE MESYLATE 1 MG TABLET PO ONE (10:51)
[2023-02-08] MEDS ORDERED: LURASIDONE HCL 40 MG TABLET PO ONE (11:00)
[2023-02-08] MEDS: VENLAFAXINE HCL 75 MG E.R. CAPSULES PO SCH (11:40)
[2023-02-08 11:53] LABS: HEMATOCRIT 34.3 % (35.4-49); HEMOGLOBIN 11.2 GM/dL (11.7-16.9); MCHC 32.6 g/dl (32.0-35.9); MEAN CELL VOLUME 76.8 fl (80-96); MEAN PLT VOLUME 9.1 fl (7.5-11.1); PLATELET COUNT 241 10^3/uL (134-434); RBC 4.46 M/mm3 (4.00-5.60); RDW 14.9 % (11.9-15.9); WHITE BLOOD COUNT 4.5 K/mm3 (4.0-10.0)
[2023-02-08 12:32] LABS: POTASSIUM 4.6 mmol/L (3.5-5.1)
[2023-02-08 12:40] LABS: BLOOD UREA NITROGEN 7.8 mg/dL (7-18); CALCIUM 8.7 mg/dL (8.5-10.1)
[2023-02-08 12:43] LABS: CREATININE 0.7 mg/dL (0.55-1.3)
[2023-02-08 12:45] LABS: BILIRUBIN,TOTAL 0.1 mg/dL (0.2-1); TOT PROT 7.2 g/dl (6.4-8.2)
[2023-02-08] MEDS: MELATONIN 5 MG TABLETS PO SCH (22:31)
[2023-02-08] MEDS: BENZTROPINE MESYLATE 1 MG TABLET PO SCH (22:33)
[2023-02-08] MEDS: METHOCARBAMOL 500 MG TABLET PO PRN (22:33)
[2023-02-08] MEDS: THIAMINE HCL 100 MG TABLET (FP) PO SCH (22:34)
[2023-02-08] MEDS: hydrOXYzine PAMOATE 25 MG CAPSULE (FP) PO PRN (22:34)
[2023-02-08] MEDS: MIRTAZAPINE 15 MG TABLET (FP) PO SCH (22:37)
[2023-02-08] MEDS: PRAZOSIN HCL 1 MG CAPSULE PO SCH (23:03)
[2023-02-09] MEDS: methaDONE HCL 40 MG DISPERSABLE TABLET PO SCH (05:58)
[2023-02-09] MEDS: diazePAM 5 MG TABLET PO SCH ×3 (05:58→22:40)
[2023-02-09] MEDS: BENZTROPINE MESYLATE 1 MG TABLET PO SCH ×2 (07:59→22:39)
[2023-02-09] MEDS: LURASIDONE HCL 40 MG TABLET PO SCH (08:00)
[2023-02-09] MEDS: VENLAFAXINE HCL 75 MG E.R. CAPSULES PO SCH (10:34)
[2023-02-09] MEDS: PANTOPRAZOLE 20 MG TABLET PO SCH (10:34)
[2023-02-09] MEDS: PRENATAL VITAMINS W/ FOLIC ACID TABLET (FP) PO SCH (10:34)
[2023-02-09] MEDS: NICOTINE 14 MG/24 HOURS TOPICAL PATCH TD SCH (10:37)
[2023-02-09] MEDS: PRAZOSIN HCL 1 MG CAPSULE PO SCH (22:36)
[2023-02-09] MEDS: MELATONIN 5 MG TABLETS PO SCH (22:36)
[2023-02-09] MEDS: MIRTAZAPINE 15 MG TABLET (FP) PO SCH (22:38)
[2023-02-09] MEDS: METHOCARBAMOL 500 MG TABLET PO PRN (22:38)
[2023-02-09] MEDS: THIAMINE HCL 100 MG TABLET (FP) PO SCH (22:38)
[2023-02-09] MEDS: hydrOXYzine PAMOATE 25 MG CAPSULE (FP) PO PRN (22:39)
[2023-02-10] MEDS: methaDONE HCL 40 MG DISPERSABLE TABLET PO SCH (05:31)
[2023-02-10] MEDS: diazePAM 5 MG TABLET PO SCH ×2 (05:31→17:56)
[2023-02-10] MEDS: BENZTROPINE MESYLATE 1 MG TABLET PO SCH ×2 (09:05→22:42)
[2023-02-10] MEDS: LURASIDONE HCL 40 MG TABLET PO SCH (09:05)
[2023-02-10] MEDS: VENLAFAXINE HCL 75 MG E.R. CAPSULES PO SCH (10:30)
[2023-02-10] MEDS: PANTOPRAZOLE 20 MG TABLET PO SCH (10:30)
[2023-02-10] MEDS: PRENATAL VITAMINS W/ FOLIC ACID TABLET (FP) PO SCH (10:30)
[2023-02-10] MEDS: NICOTINE 14 MG/24 HOURS TOPICAL PATCH TD SCH (10:31)
[2023-02-10] MEDS: MELATONIN 5 MG TABLETS PO SCH (22:41)
[2023-02-10] MEDS: PRAZOSIN HCL 1 MG CAPSULE PO SCH (22:41)
[2023-02-10] MEDS: MIRTAZAPINE 15 MG TABLET (FP) PO SCH (22:42)
[2023-02-10] MEDS: THIAMINE HCL 100 MG TABLET (FP) PO SCH (22:43)
[2023-02-11] MEDS: methaDONE HCL 40 MG DISPERSABLE TABLET PO SCH (05:57)
[2023-02-11] MEDS ORDERED: diazePAM 5 MG TABLET PO ONE (06:00)
[2023-02-11] MEDS: BENZTROPINE MESYLATE 1 MG TABLET PO SCH (08:27)
[2023-02-11] MEDS: LURASIDONE HCL 40 MG TABLET PO SCH (08:28)
[2023-02-11] MEDS: VENLAFAXINE HCL 75 MG E.R. CAPSULES PO SCH (10:12)
[2023-02-11] MEDS: PANTOPRAZOLE 20 MG TABLET PO SCH (10:12)
[2023-02-11] MEDS: PRENATAL VITAMINS W/ FOLIC ACID TABLET (FP) PO SCH (10:12)
[2023-02-11] MEDS: NICOTINE 14 MG/24 HOURS TOPICAL PATCH TD SCH (10:12)
[2023-02-11 10:17] VITALS: BP 111/74; PULSE 99; RESP 18; TEMP 97.1
== END 2023-02-11 13:07 | disposition other institution (70) | DRG 773 ==
LOC: YASAS 13:25 → Y3N 17:03
PROVIDERS: ADMIT Allergy & Immunology; ATTEND Surgery
PROC: HZ2ZZZZ Detoxification Services for Substance Abuse Treatment (ICD-10-PCS; principal; 2023-02-07)
DX: F10.230 Alcohol dependence with withdrawal, uncomplicated (principal); F11.20 Opioid dependence, uncomplicated; F13.20 Sedative, hypnotic or anxiolytic dependence, uncomplicated; F14.20 Cocaine dependence, uncomplicated; F17.210 Nicotine dependence, cigarettes, uncomplicated; F19.282 Other psychoactive substance dependence with psychoactive substance-induced sleep disorder; F19.24 Other psychoactive substance dependence with psychoactive substance-induced mood disorder; F31.9 Bipolar disorder, unspecified; F41.9 Anxiety disorder, unspecified; B18.2 Chronic viral hepatitis C; Z86.69 Personal history of other diseases of the nervous system and sense organs
CPT/HCPCS: 36415; 80053; 85027; 86780; 87635; 87811

== ENCOUNTER 2023-02-11 13:33 | Inpatient (IN) | payer OTHER ==
[2023-02-11] MEDS ORDERED: ACETAMINOPHEN 325 MG TABLET (FP) PO PRN (14:13)
[2023-02-11] MEDS ORDERED: AMMONIUM LACTATE 12% LOTION 225 GM BOTTLE TP PRN (14:13)
[2023-02-11] MEDS ORDERED: hydrOXYzine PAMOATE 25 MG CAPSULE (FP) PO PRN (14:13)
[2023-02-11] MEDS ORDERED: BENZONATATE 200 MG CAPSULE PO PRN (14:13)
[2023-02-11] MEDS ORDERED: guaiFENesin 600 MG TABLET.ER (FP) PO PRN (14:13)
[2023-02-11] MEDS ORDERED: LOPERAMIDE HCL 2 MG CAPSULE PO PRN (14:13)
[2023-02-11] MEDS ORDERED: COLLOIDAL OATMEAL 1 BAR EACH TP PRN (14:13)
[2023-02-11] MEDS ORDERED: NICOTINE 14 MG/24 HOURS TOPICAL PATCH TD PRN (14:13)
[2023-02-11] MEDS ORDERED: NICOTINE POLACRILEX 4 MG GUM BUC PRN (14:13)
[2023-02-11] MEDS ORDERED: POLYETHYLENE GLYCOL (HEALTHYLAX) 3350 17 GM PACKET PO PRN (14:13)
[2023-02-11] MEDS ORDERED: BENZOCAINE/MENTHOL (CHLORASEPTIC ) LOZENGE MM PRN (14:13)
[2023-02-11] MEDS ORDERED: NALOXONE HCL (KLOXXADO) 8 MG SPRAY NS PRN (14:13)
[2023-02-11] MEDS ORDERED: MAG HYDROX/AL HYDROX/SIMETH 30 ML UNIT-DOSE CUP PO PRN (14:13)
[2023-02-11] MEDS ORDERED: NALOXONE HCL 0.4 MG/ML VIAL IVPUSH PRN (14:13)
[2023-02-11] MEDS ORDERED: METHOCARBAMOL 500 MG TABLET PO PRN (14:13)
[2023-02-11] MEDS: BENZTROPINE MESYLATE 1 MG TABLET PO SCH (21:25)
[2023-02-11] MEDS: MIRTAZAPINE 15 MG TABLET (FP) PO SCH (21:25)
[2023-02-11] MEDS: PRAZOSIN HCL 1 MG CAPSULE PO SCH (21:26)
[2023-02-11] MEDS: THIAMINE HCL 100 MG TABLET (FP) PO SCH (21:26)
[2023-02-11] MEDS ORDERED: MIRTAZAPINE 15 MG TABLET (FP) PO SCH (22:00)
[2023-02-11] MEDS ORDERED: MELATONIN 5 MG TABLETS PO SCH (22:00)
[2023-02-11] MEDS ORDERED: BENZTROPINE MESYLATE 1 MG TABLET PO SCH ×2 (22:00)
[2023-02-11] MEDS ORDERED: PRAZOSIN HCL 1 MG CAPSULE PO SCH (22:00)
[2023-02-12] MEDS: methaDONE HCL 10 MG TABLET PO SCH (06:21)
[2023-02-12] MEDS ORDERED: LURASIDONE HCL 40 MG TABLET PO SCH ×2 (08:30→10:00)
[2023-02-12] MEDS: VENLAFAXINE HCL 75 MG E.R. CAPSULES PO SCH (09:09)
[2023-02-12] MEDS: PRENATAL VITAMINS W/ FOLIC ACID TABLET (FP) PO SCH (09:09)
[2023-02-12] MEDS: BENZTROPINE MESYLATE 1 MG TABLET PO SCH ×2 (09:09→21:42)
[2023-02-12] MEDS: PANTOPRAZOLE 20 MG TABLET PO SCH (09:09)
[2023-02-12] MEDS: LURASIDONE HCL 40 MG TABLET PO SCH (09:10)
[2023-02-12] MEDS ORDERED: VENLAFAXINE HCL 75 MG E.R. CAPSULES PO SCH (10:00)
[2023-02-12] MEDS: NICOTINE 10 MG CARTRIDGE (INHALER) IH PRN (14:25)
[2023-02-12] MEDS: MIRTAZAPINE 15 MG TABLET (FP) PO SCH (21:42)
[2023-02-12] MEDS: PRAZOSIN HCL 1 MG CAPSULE PO SCH (21:42)
[2023-02-12] MEDS: THIAMINE HCL 100 MG TABLET (FP) PO SCH (21:43)
[2023-02-13] MEDS ORDERED: methaDONE HCL 40 MG DISPERSABLE TABLET PO SCH (06:32)
[2023-02-13] MEDS: methaDONE HCL 40 MG DISPERSABLE TABLET PO SCH (06:49)
[2023-02-13] MEDS: methaDONE HCL 10 MG TABLET PO SCH (06:52)
[2023-02-13] MEDS: LURASIDONE HCL 40 MG TABLET PO SCH (09:20)
[2023-02-13] MEDS: BENZTROPINE MESYLATE 1 MG TABLET PO SCH ×2 (09:20→21:22)
[2023-02-13] MEDS: VENLAFAXINE HCL 75 MG E.R. CAPSULES PO SCH (09:20)
[2023-02-13] MEDS: PANTOPRAZOLE 20 MG TABLET PO SCH (09:20)
[2023-02-13] MEDS: PRENATAL VITAMINS W/ FOLIC ACID TABLET (FP) PO SCH (09:20)
[2023-02-13] MEDS: NICOTINE 10 MG CARTRIDGE (INHALER) IH PRN ×2 (09:22→16:48)
[2023-02-13] MEDS: MIRTAZAPINE 15 MG TABLET (FP) PO SCH (21:22)
[2023-02-13] MEDS: PRAZOSIN HCL 1 MG CAPSULE PO SCH (21:22)
[2023-02-13] MEDS: THIAMINE HCL 100 MG TABLET (FP) PO SCH (21:23)
[2023-02-14] MEDS: methaDONE HCL 40 MG DISPERSABLE TABLET PO SCH (06:05)
[2023-02-14] MEDS: LURASIDONE HCL 40 MG TABLET PO SCH (07:31)
[2023-02-14] MEDS: BENZTROPINE MESYLATE 1 MG TABLET PO SCH ×2 (07:31→21:55)
[2023-02-14] MEDS: NICOTINE 10 MG CARTRIDGE (INHALER) IH PRN ×2 (07:36→18:41)
[2023-02-14] MEDS: VENLAFAXINE HCL 75 MG E.R. CAPSULES PO SCH (09:31)
[2023-02-14] MEDS: PANTOPRAZOLE 20 MG TABLET PO SCH (09:31)
[2023-02-14] MEDS: PRENATAL VITAMINS W/ FOLIC ACID TABLET (FP) PO SCH (09:31)
[2023-02-14] MEDS: PRAZOSIN HCL 1 MG CAPSULE PO SCH (21:55)
[2023-02-14] MEDS: MIRTAZAPINE 15 MG TABLET (FP) PO SCH (21:55)
[2023-02-14] MEDS: THIAMINE HCL 100 MG TABLET (FP) PO SCH (21:55)
[2023-02-15] MEDS: methaDONE HCL 40 MG DISPERSABLE TABLET PO SCH (06:38)
[2023-02-15] MEDS: PANTOPRAZOLE 20 MG TABLET PO SCH (09:05)
[2023-02-15] MEDS: LURASIDONE HCL 40 MG TABLET PO SCH (09:05)
[2023-02-15] MEDS: BENZTROPINE MESYLATE 1 MG TABLET PO SCH ×2 (09:05→21:36)
[2023-02-15] MEDS: VENLAFAXINE HCL 75 MG E.R. CAPSULES PO SCH (09:05)
[2023-02-15] MEDS: PRENATAL VITAMINS W/ FOLIC ACID TABLET (FP) PO SCH (09:05)
[2023-02-15] MEDS: NICOTINE 10 MG CARTRIDGE (INHALER) IH PRN ×2 (09:06→20:02)
[2023-02-15] MEDS: MIRTAZAPINE 15 MG TABLET (FP) PO SCH (21:36)
[2023-02-15] MEDS: PRAZOSIN HCL 1 MG CAPSULE PO SCH (21:36)
[2023-02-15] MEDS: THIAMINE HCL 100 MG TABLET (FP) PO SCH (21:37)
[2023-02-16] MEDS: methaDONE HCL 40 MG DISPERSABLE TABLET PO SCH (06:38)
[2023-02-16] MEDS: PRENATAL VITAMINS W/ FOLIC ACID TABLET (FP) PO SCH (09:14)
[2023-02-16] MEDS: LURASIDONE HCL 40 MG TABLET PO SCH (09:15)
[2023-02-16] MEDS: BENZTROPINE MESYLATE 1 MG TABLET PO SCH ×2 (09:15→21:27)
[2023-02-16] MEDS: VENLAFAXINE HCL 75 MG E.R. CAPSULES PO SCH (09:15)
[2023-02-16] MEDS: PANTOPRAZOLE 20 MG TABLET PO SCH (09:15)
[2023-02-16] MEDS: IBUPROFEN 600 MG TABLET (FP) PO PRN (11:17)
[2023-02-16] MEDS: IBUPROFEN 400 MG TABLET (FP) PO PRN (19:49)
[2023-02-16] MEDS: NICOTINE 10 MG CARTRIDGE (INHALER) IH PRN (19:50)
[2023-02-16] MEDS: MIRTAZAPINE 15 MG TABLET (FP) PO SCH (21:26)
[2023-02-16] MEDS: THIAMINE HCL 100 MG TABLET (FP) PO SCH (21:27)
[2023-02-16] MEDS: PRAZOSIN HCL 1 MG CAPSULE PO SCH (21:27)
[2023-02-17] MEDS: methaDONE HCL 40 MG DISPERSABLE TABLET PO SCH (06:35)
[2023-02-17] MEDS: LURASIDONE HCL 40 MG TABLET PO SCH (07:51)
[2023-02-17] MEDS: BENZTROPINE MESYLATE 1 MG TABLET PO SCH ×2 (07:51→21:26)
[2023-02-17] MEDS: PANTOPRAZOLE 20 MG TABLET PO SCH (09:06)
[2023-02-17] MEDS: VENLAFAXINE HCL 75 MG E.R. CAPSULES PO SCH (09:06)
[2023-02-17] MEDS: PRENATAL VITAMINS W/ FOLIC ACID TABLET (FP) PO SCH (09:06)
[2023-02-17] MEDS: NICOTINE 10 MG CARTRIDGE (INHALER) IH PRN ×2 (11:03→15:59)
[2023-02-17] MEDS: IBUPROFEN 600 MG TABLET (FP) PO PRN (15:59)
[2023-02-17] MEDS: MIRTAZAPINE 15 MG TABLET (FP) PO SCH (21:25)
[2023-02-17] MEDS: PRAZOSIN HCL 1 MG CAPSULE PO SCH (21:26)
[2023-02-17] MEDS: THIAMINE HCL 100 MG TABLET (FP) PO SCH (21:26)
[2023-02-18] MEDS: methaDONE HCL 40 MG DISPERSABLE TABLET PO SCH (06:35)
[2023-02-18] MEDS: PANTOPRAZOLE 20 MG TABLET PO SCH (09:01)
[2023-02-18] MEDS: PRENATAL VITAMINS W/ FOLIC ACID TABLET (FP) PO SCH (09:01)
[2023-02-18] MEDS: BENZTROPINE MESYLATE 1 MG TABLET PO SCH ×2 (09:01→21:50)
[2023-02-18] MEDS: VENLAFAXINE HCL 75 MG E.R. CAPSULES PO SCH (09:01)
[2023-02-18] MEDS: LURASIDONE HCL 40 MG TABLET PO SCH (09:01)
[2023-02-18] MEDS: IBUPROFEN 600 MG TABLET (FP) PO PRN ×2 (16:19→21:51)
[2023-02-18] MEDS: PRAZOSIN HCL 1 MG CAPSULE PO SCH (21:50)
[2023-02-18] MEDS: MIRTAZAPINE 15 MG TABLET (FP) PO SCH (21:50)
[2023-02-18] MEDS: THIAMINE HCL 100 MG TABLET (FP) PO SCH (21:50)
[2023-02-19] MEDS: methaDONE HCL 40 MG DISPERSABLE TABLET PO SCH (05:49)
[2023-02-19] MEDS: PRENATAL VITAMINS W/ FOLIC ACID TABLET (FP) PO SCH (09:09)
[2023-02-19] MEDS: PANTOPRAZOLE 20 MG TABLET PO SCH (09:09)
[2023-02-19] MEDS: VENLAFAXINE HCL 75 MG E.R. CAPSULES PO SCH (09:09)
[2023-02-19] MEDS: BENZTROPINE MESYLATE 1 MG TABLET PO SCH ×2 (09:09→21:50)
[2023-02-19] MEDS: LURASIDONE HCL 40 MG TABLET PO SCH (09:10)
[2023-02-19] MEDS: IBUPROFEN 600 MG TABLET (FP) PO PRN (10:56)
[2023-02-19] MEDS: NICOTINE 10 MG CARTRIDGE (INHALER) IH PRN (13:39)
[2023-02-19] MEDS: PRAZOSIN HCL 1 MG CAPSULE PO SCH (21:50)
[2023-02-19] MEDS: MIRTAZAPINE 15 MG TABLET (FP) PO SCH (21:50)
[2023-02-19] MEDS: THIAMINE HCL 100 MG TABLET (FP) PO SCH (21:50)
[2023-02-20] MEDS: methaDONE HCL 40 MG DISPERSABLE TABLET PO SCH (06:14)
[2023-02-20] MEDS: VENLAFAXINE HCL 75 MG E.R. CAPSULES PO SCH (09:21)
[2023-02-20] MEDS: PRENATAL VITAMINS W/ FOLIC ACID TABLET (FP) PO SCH (09:21)
[2023-02-20] MEDS: PANTOPRAZOLE 20 MG TABLET PO SCH (09:21)
[2023-02-20] MEDS: BENZTROPINE MESYLATE 1 MG TABLET PO SCH ×2 (09:21→21:28)
[2023-02-20] MEDS: LURASIDONE HCL 40 MG TABLET PO SCH (09:22)
[2023-02-20] MEDS: NICOTINE 10 MG CARTRIDGE (INHALER) IH PRN ×2 (14:41→21:28)
[2023-02-20] MEDS: PRAZOSIN HCL 1 MG CAPSULE PO SCH (21:27)
[2023-02-20] MEDS: MIRTAZAPINE 15 MG TABLET (FP) PO SCH (21:27)
[2023-02-20] MEDS: THIAMINE HCL 100 MG TABLET (FP) PO SCH (21:28)
[2023-02-21] MEDS: methaDONE HCL 40 MG DISPERSABLE TABLET PO SCH (09:04)
[2023-02-21] MEDS: PANTOPRAZOLE 20 MG TABLET PO SCH (09:04)
[2023-02-21] MEDS: LURASIDONE HCL 40 MG TABLET PO SCH (09:04)
[2023-02-21] MEDS: BENZTROPINE MESYLATE 1 MG TABLET PO SCH ×2 (09:04→21:04)
[2023-02-21] MEDS: VENLAFAXINE HCL 75 MG E.R. CAPSULES PO SCH (09:04)
[2023-02-21] MEDS: PRENATAL VITAMINS W/ FOLIC ACID TABLET (FP) PO SCH (09:04)
[2023-02-21] MEDS: NICOTINE 10 MG CARTRIDGE (INHALER) IH PRN (14:37)
[2023-02-21] MEDS: IBUPROFEN 600 MG TABLET (FP) PO PRN (14:37)
[2023-02-21] MEDS: MIRTAZAPINE 15 MG TABLET (FP) PO SCH (21:04)
[2023-02-21] MEDS: PRAZOSIN HCL 1 MG CAPSULE PO SCH (21:04)
[2023-02-21] MEDS: THIAMINE HCL 100 MG TABLET (FP) PO SCH (21:04)
[2023-02-22] MEDS: methaDONE HCL 40 MG DISPERSABLE TABLET PO SCH (05:58)
[2023-02-22] MEDS: BENZTROPINE MESYLATE 1 MG TABLET PO SCH ×2 (08:45→21:00)
[2023-02-22] MEDS: LURASIDONE HCL 40 MG TABLET PO SCH (08:45)
[2023-02-22] MEDS: PRENATAL VITAMINS W/ FOLIC ACID TABLET (FP) PO SCH (09:47)
[2023-02-22] MEDS: PANTOPRAZOLE 20 MG TABLET PO SCH (09:47)
[2023-02-22] MEDS: NICOTINE 10 MG CARTRIDGE (INHALER) IH PRN (09:47)
[2023-02-22] MEDS: VENLAFAXINE HCL 75 MG E.R. CAPSULES PO SCH (09:47)
[2023-02-22] MEDS: IBUPROFEN 600 MG TABLET (FP) PO PRN (14:22)
[2023-02-22] MEDS: PRAZOSIN HCL 1 MG CAPSULE PO SCH (21:00)
[2023-02-22] MEDS: MIRTAZAPINE 15 MG TABLET (FP) PO SCH (21:00)
[2023-02-22] MEDS: THIAMINE HCL 100 MG TABLET (FP) PO SCH (21:01)
[2023-02-23] MEDS: methaDONE HCL 40 MG DISPERSABLE TABLET PO SCH (05:55)
[2023-02-23] MEDS: BENZTROPINE MESYLATE 1 MG TABLET PO SCH ×2 (09:02→21:31)
[2023-02-23] MEDS: LURASIDONE HCL 40 MG TABLET PO SCH (09:02)
[2023-02-23] MEDS: PANTOPRAZOLE 20 MG TABLET PO SCH (09:24)
[2023-02-23] MEDS: VENLAFAXINE HCL 75 MG E.R. CAPSULES PO SCH (09:24)
[2023-02-23] MEDS: PRENATAL VITAMINS W/ FOLIC ACID TABLET (FP) PO SCH (09:24)
[2023-02-23] MEDS: THIAMINE HCL 100 MG TABLET (FP) PO SCH (21:31)
[2023-02-23] MEDS: MIRTAZAPINE 15 MG TABLET (FP) PO SCH (21:31)
[2023-02-23] MEDS: PRAZOSIN HCL 1 MG CAPSULE PO SCH (21:31)
[2023-02-24] MEDS: methaDONE HCL 40 MG DISPERSABLE TABLET PO SCH (06:56)
[2023-02-24] MEDS: LURASIDONE HCL 40 MG TABLET PO SCH (08:47)
[2023-02-24] MEDS: BENZTROPINE MESYLATE 1 MG TABLET PO SCH ×2 (08:47→21:04)
[2023-02-24] MEDS: NICOTINE 10 MG CARTRIDGE (INHALER) IH PRN ×2 (08:47→15:48)
[2023-02-24] MEDS: PANTOPRAZOLE 20 MG TABLET PO SCH (10:30)
[2023-02-24] MEDS: PRENATAL VITAMINS W/ FOLIC ACID TABLET (FP) PO SCH (10:30)
[2023-02-24] MEDS: VENLAFAXINE HCL 75 MG E.R. CAPSULES PO SCH (10:30)
[2023-02-24] MEDS: IBUPROFEN 400 MG TABLET (FP) PO PRN (15:47)
[2023-02-24] MEDS: THIAMINE HCL 100 MG TABLET (FP) PO SCH (21:04)
[2023-02-24] MEDS: PRAZOSIN HCL 1 MG CAPSULE PO SCH (21:04)
[2023-02-24] MEDS: MIRTAZAPINE 15 MG TABLET (FP) PO SCH (21:04)
[2023-02-25] MEDS: methaDONE HCL 40 MG DISPERSABLE TABLET PO SCH (05:55)
[2023-02-25] MEDS: NICOTINE 10 MG CARTRIDGE (INHALER) IH PRN ×4 (08:45→21:10)
[2023-02-25] MEDS: BENZTROPINE MESYLATE 1 MG TABLET PO SCH ×2 (09:06→21:08)
[2023-02-25] MEDS: PRENATAL VITAMINS W/ FOLIC ACID TABLET (FP) PO SCH (09:06)
[2023-02-25] MEDS: VENLAFAXINE HCL 75 MG E.R. CAPSULES PO SCH (09:06)
[2023-02-25] MEDS: LURASIDONE HCL 40 MG TABLET PO SCH (09:06)
[2023-02-25] MEDS: PANTOPRAZOLE 20 MG TABLET PO SCH (09:08)
[2023-02-25] MEDS: MIRTAZAPINE 15 MG TABLET (FP) PO SCH (21:08)
[2023-02-25] MEDS: PRAZOSIN HCL 1 MG CAPSULE PO SCH (21:08)
[2023-02-25] MEDS: THIAMINE HCL 100 MG TABLET (FP) PO SCH (21:09)
[2023-02-26] MEDS: methaDONE HCL 40 MG DISPERSABLE TABLET PO SCH (06:20)
[2023-02-26] MEDS: NICOTINE 10 MG CARTRIDGE (INHALER) IH PRN ×2 (06:37→13:04)
[2023-02-26] MEDS: BENZTROPINE MESYLATE 1 MG TABLET PO SCH ×2 (09:15→21:31)
[2023-02-26] MEDS: LURASIDONE HCL 40 MG TABLET PO SCH (09:16)
[2023-02-26] MEDS: VENLAFAXINE HCL 75 MG E.R. CAPSULES PO SCH (10:24)
[2023-02-26] MEDS: PRENATAL VITAMINS W/ FOLIC ACID TABLET (FP) PO SCH (10:24)
[2023-02-26] MEDS: PANTOPRAZOLE 20 MG TABLET PO SCH (10:24)
[2023-02-26] MEDS: IBUPROFEN 600 MG TABLET (FP) PO PRN (18:15)
[2023-02-26] MEDS: PRAZOSIN HCL 1 MG CAPSULE PO SCH (21:30)
[2023-02-26] MEDS: THIAMINE HCL 100 MG TABLET (FP) PO SCH (21:30)
[2023-02-26] MEDS: MIRTAZAPINE 15 MG TABLET (FP) PO SCH (21:31)
[2023-02-27] MEDS: methaDONE HCL 40 MG DISPERSABLE TABLET PO SCH (06:22)
[2023-02-27] MEDS: LURASIDONE HCL 40 MG TABLET PO SCH (10:29)
[2023-02-27] MEDS: PRENATAL VITAMINS W/ FOLIC ACID TABLET (FP) PO SCH (10:29)
[2023-02-27] MEDS: BENZTROPINE MESYLATE 1 MG TABLET PO SCH ×2 (10:29→21:29)
[2023-02-27] MEDS: VENLAFAXINE HCL 75 MG E.R. CAPSULES PO SCH (10:29)
[2023-02-27] MEDS: PANTOPRAZOLE 20 MG TABLET PO SCH (10:29)
[2023-02-27] MEDS: NICOTINE 10 MG CARTRIDGE (INHALER) IH PRN ×3 (10:53→21:29)
[2023-02-27] MEDS: PRAZOSIN HCL 1 MG CAPSULE PO SCH (21:28)
[2023-02-27] MEDS: MIRTAZAPINE 15 MG TABLET (FP) PO SCH (21:29)
[2023-02-27] MEDS: THIAMINE HCL 100 MG TABLET (FP) PO SCH (21:29)
[2023-02-28] MEDS: methaDONE HCL 40 MG DISPERSABLE TABLET PO SCH (06:39)
[2023-02-28] MEDS: BENZTROPINE MESYLATE 1 MG TABLET PO SCH ×2 (08:59→21:04)
[2023-02-28] MEDS: LURASIDONE HCL 40 MG TABLET PO SCH (08:59)
[2023-02-28] MEDS: PRENATAL VITAMINS W/ FOLIC ACID TABLET (FP) PO SCH (08:59)
[2023-02-28] MEDS: VENLAFAXINE HCL 75 MG E.R. CAPSULES PO SCH (08:59)
[2023-02-28] MEDS: PANTOPRAZOLE 20 MG TABLET PO SCH (08:59)
[2023-02-28] MEDS: NICOTINE 10 MG CARTRIDGE (INHALER) IH PRN ×2 (09:00→21:03)
[2023-02-28] MEDS: THIAMINE HCL 100 MG TABLET (FP) PO SCH (21:03)
[2023-02-28] MEDS: PRAZOSIN HCL 5 MG CAPSULE PO SCH (21:04)
[2023-02-28] MEDS: MIRTAZAPINE 15 MG TABLET (FP) PO SCH (21:04)
[2023-03-01] MEDS: methaDONE HCL 40 MG DISPERSABLE TABLET PO SCH (06:05)
[2023-03-01] MEDS: NICOTINE 10 MG CARTRIDGE (INHALER) IH PRN ×2 (06:58→18:53)
[2023-03-01] MEDS: LURASIDONE HCL 40 MG TABLET PO SCH (09:12)
[2023-03-01] MEDS: PRENATAL VITAMINS W/ FOLIC ACID TABLET (FP) PO SCH (09:12)
[2023-03-01] MEDS: BENZTROPINE MESYLATE 1 MG TABLET PO SCH ×2 (09:12→21:19)
[2023-03-01] MEDS: PANTOPRAZOLE 20 MG TABLET PO SCH (09:12)
[2023-03-01] MEDS: VENLAFAXINE HCL 75 MG E.R. CAPSULES PO SCH (09:12)
[2023-03-01] MEDS: MIRTAZAPINE 15 MG TABLET (FP) PO SCH (21:19)
[2023-03-01] MEDS: THIAMINE HCL 100 MG TABLET (FP) PO SCH (21:19)
[2023-03-01] MEDS: PRAZOSIN HCL 5 MG CAPSULE PO SCH (21:20)
[2023-03-02] MEDS: methaDONE HCL 40 MG DISPERSABLE TABLET PO SCH (06:11)
[2023-03-02] MEDS: PRENATAL VITAMINS W/ FOLIC ACID TABLET (FP) PO SCH (09:02)
[2023-03-02] MEDS: PANTOPRAZOLE 20 MG TABLET PO SCH (09:02)
[2023-03-02] MEDS: VENLAFAXINE HCL 75 MG E.R. CAPSULES PO SCH (09:02)
[2023-03-02] MEDS: BENZTROPINE MESYLATE 1 MG TABLET PO SCH ×2 (09:03→21:25)
[2023-03-02] MEDS: LURASIDONE HCL 40 MG TABLET PO SCH (09:03)
[2023-03-02] MEDS: NICOTINE 10 MG CARTRIDGE (INHALER) IH PRN ×3 (09:03→21:26)
[2023-03-02] MEDS: MIRTAZAPINE 15 MG TABLET (FP) PO SCH (21:25)
[2023-03-02] MEDS: THIAMINE HCL 100 MG TABLET (FP) PO SCH (21:25)
[2023-03-02] MEDS: PRAZOSIN HCL 5 MG CAPSULE PO SCH (21:26)
[2023-03-03] MEDS: methaDONE HCL 40 MG DISPERSABLE TABLET PO SCH (06:24)
[2023-03-03] MEDS: NICOTINE 10 MG CARTRIDGE (INHALER) IH PRN ×2 (07:19→21:03)
[2023-03-03] MEDS: VENLAFAXINE HCL 75 MG E.R. CAPSULES PO SCH (09:14)
[2023-03-03] MEDS: PANTOPRAZOLE 20 MG TABLET PO SCH (09:14)
[2023-03-03] MEDS: BENZTROPINE MESYLATE 1 MG TABLET PO SCH ×2 (09:15→21:02)
[2023-03-03] MEDS: LURASIDONE HCL 40 MG TABLET PO SCH (09:15)
[2023-03-03] MEDS: PRENATAL VITAMINS W/ FOLIC ACID TABLET (FP) PO SCH (09:15)
[2023-03-03] MEDS: MAGNESIUM HYDROX 2400MG/30ML ORAL SUSPENSION 30 ML CUP PO PRN (09:16)
[2023-03-03] MEDS: THIAMINE HCL 100 MG TABLET (FP) PO SCH (21:02)
[2023-03-03] MEDS: MIRTAZAPINE 15 MG TABLET (FP) PO SCH (21:02)
[2023-03-03] MEDS: PRAZOSIN HCL 5 MG CAPSULE PO SCH (21:02)
[2023-03-04] MEDS: NICOTINE 10 MG CARTRIDGE (INHALER) IH PRN ×3 (06:14→21:29)
[2023-03-04] MEDS: methaDONE HCL 40 MG DISPERSABLE TABLET PO SCH (06:14)
[2023-03-04] MEDS: VENLAFAXINE HCL 75 MG E.R. CAPSULES PO SCH (09:01)
[2023-03-04] MEDS: PRENATAL VITAMINS W/ FOLIC ACID TABLET (FP) PO SCH (09:01)
[2023-03-04] MEDS: BENZTROPINE MESYLATE 1 MG TABLET PO SCH ×2 (09:02→21:29)
[2023-03-04] MEDS: LURASIDONE HCL 40 MG TABLET PO SCH (09:02)
[2023-03-04] MEDS: PANTOPRAZOLE 20 MG TABLET PO SCH (09:02)
[2023-03-04] MEDS: MAGNESIUM HYDROX 2400MG/30ML ORAL SUSPENSION 30 ML CUP PO PRN (16:37)
[2023-03-04] MEDS: THIAMINE HCL 100 MG TABLET (FP) PO SCH (21:29)
[2023-03-04] MEDS: MIRTAZAPINE 15 MG TABLET (FP) PO SCH (21:29)
[2023-03-04] MEDS: PRAZOSIN HCL 5 MG CAPSULE PO SCH (21:29)
[2023-03-05] MEDS: NICOTINE 10 MG CARTRIDGE (INHALER) IH PRN ×4 (06:06→21:05)
[2023-03-05] MEDS: methaDONE HCL 40 MG DISPERSABLE TABLET PO SCH (06:07)
[2023-03-05] MEDS: VENLAFAXINE HCL 75 MG E.R. CAPSULES PO SCH (09:13)
[2023-03-05] MEDS: BENZTROPINE MESYLATE 1 MG TABLET PO SCH ×2 (09:13→21:05)
[2023-03-05] MEDS: PRENATAL VITAMINS W/ FOLIC ACID TABLET (FP) PO SCH (09:13)
[2023-03-05] MEDS: LURASIDONE HCL 40 MG TABLET PO SCH (09:13)
[2023-03-05] MEDS: PANTOPRAZOLE 20 MG TABLET PO SCH (09:13)
[2023-03-05] MEDS: MAGNESIUM HYDROX 2400MG/30ML ORAL SUSPENSION 30 ML CUP PO PRN (12:58)
[2023-03-05] MEDS: PRAZOSIN HCL 5 MG CAPSULE PO SCH (21:05)
[2023-03-05] MEDS: MIRTAZAPINE 15 MG TABLET (FP) PO SCH (21:05)
[2023-03-05] MEDS: THIAMINE HCL 100 MG TABLET (FP) PO SCH (21:05)
[2023-03-06] MEDS: methaDONE HCL 40 MG DISPERSABLE TABLET PO SCH (06:08)
[2023-03-06] MEDS: NICOTINE 10 MG CARTRIDGE (INHALER) IH PRN ×3 (06:10→21:17)
[2023-03-06] MEDS: PRENATAL VITAMINS W/ FOLIC ACID TABLET (FP) PO SCH (09:00)
[2023-03-06] MEDS: VENLAFAXINE HCL 75 MG E.R. CAPSULES PO SCH (09:01)
[2023-03-06] MEDS: PANTOPRAZOLE 20 MG TABLET PO SCH (09:01)
[2023-03-06] MEDS: BENZTROPINE MESYLATE 1 MG TABLET PO SCH ×2 (09:01→21:16)
[2023-03-06] MEDS: LURASIDONE HCL 40 MG TABLET PO SCH (09:01)
[2023-03-06] MEDS ORDERED: BISACODYL 5 MG TABLET.DR (FP) PO PRN (11:35)
[2023-03-06] MEDS ORDERED: DOCUSATE SODIUM 100 MG CAPSULE (FP) PO PRN (11:36)
[2023-03-06] MEDS: IBUPROFEN 400 MG TABLET (FP) PO PRN (14:48)
[2023-03-06] MEDS: MIRTAZAPINE 15 MG TABLET (FP) PO SCH (21:16)
[2023-03-06] MEDS: PRAZOSIN HCL 1 MG CAPSULE PO SCH (21:16)
[2023-03-06] MEDS: THIAMINE HCL 100 MG TABLET (FP) PO SCH (21:16)
[2023-03-07] MEDS: NICOTINE 10 MG CARTRIDGE (INHALER) IH PRN ×2 (06:05→18:59)
[2023-03-07] MEDS: methaDONE HCL 40 MG DISPERSABLE TABLET PO SCH (06:06)
[2023-03-07] MEDS: LURASIDONE HCL 40 MG TABLET PO SCH (09:04)
[2023-03-07] MEDS: VENLAFAXINE HCL 75 MG E.R. CAPSULES PO SCH (09:04)
[2023-03-07] MEDS: BENZTROPINE MESYLATE 1 MG TABLET PO SCH ×2 (09:04→21:37)
[2023-03-07] MEDS: PANTOPRAZOLE 20 MG TABLET PO SCH (09:04)
[2023-03-07] MEDS: PRENATAL VITAMINS W/ FOLIC ACID TABLET (FP) PO SCH (09:04)
[2023-03-07] MEDS: PRAZOSIN HCL 1 MG CAPSULE PO SCH (21:36)
[2023-03-07] MEDS: THIAMINE HCL 100 MG TABLET (FP) PO SCH (21:36)
[2023-03-07] MEDS: MIRTAZAPINE 15 MG TABLET (FP) PO SCH (21:36)
[2023-03-08] MEDS: NICOTINE 10 MG CARTRIDGE (INHALER) IH PRN ×3 (06:49→21:07)
[2023-03-08] MEDS: methaDONE HCL 40 MG DISPERSABLE TABLET PO SCH (06:50)
[2023-03-08] MEDS: PRENATAL VITAMINS W/ FOLIC ACID TABLET (FP) PO SCH (09:13)
[2023-03-08] MEDS: LURASIDONE HCL 40 MG TABLET PO SCH (09:13)
[2023-03-08] MEDS: PANTOPRAZOLE 20 MG TABLET PO SCH (09:13)
[2023-03-08] MEDS: BENZTROPINE MESYLATE 1 MG TABLET PO SCH ×2 (09:14→21:07)
[2023-03-08] MEDS: VENLAFAXINE HCL 75 MG E.R. CAPSULES PO SCH (09:14)
[2023-03-08] MEDS: PRAZOSIN HCL 1 MG CAPSULE PO SCH (21:07)
[2023-03-08] MEDS: THIAMINE HCL 100 MG TABLET (FP) PO SCH (21:07)
[2023-03-08] MEDS: MIRTAZAPINE 15 MG TABLET (FP) PO SCH (21:07)
[2023-03-09] MEDS: NICOTINE 10 MG CARTRIDGE (INHALER) IH PRN ×4 (06:00→21:25)
[2023-03-09] MEDS: methaDONE HCL 40 MG DISPERSABLE TABLET PO SCH (06:00)
[2023-03-09] MEDS: LURASIDONE HCL 40 MG TABLET PO SCH (09:12)
[2023-03-09] MEDS: VENLAFAXINE HCL 75 MG E.R. CAPSULES PO SCH (09:12)
[2023-03-09] MEDS: BENZTROPINE MESYLATE 1 MG TABLET PO SCH ×2 (09:12→21:25)
[2023-03-09] MEDS: PRENATAL VITAMINS W/ FOLIC ACID TABLET (FP) PO SCH (09:12)
[2023-03-09] MEDS: PANTOPRAZOLE 20 MG TABLET PO SCH (09:12)
[2023-03-09] MEDS: MAGNESIUM HYDROX 2400MG/30ML ORAL SUSPENSION 30 ML CUP PO PRN (11:36)
[2023-03-09] MEDS: PRAZOSIN HCL 1 MG CAPSULE PO SCH (21:25)
[2023-03-09] MEDS: MIRTAZAPINE 15 MG TABLET (FP) PO SCH (21:25)
[2023-03-09] MEDS: THIAMINE HCL 100 MG TABLET (FP) PO SCH (21:25)
[2023-03-09 22:15] VITALS: PULSE 100
[2023-03-10] MEDS: methaDONE HCL 40 MG DISPERSABLE TABLET PO SCH (06:30)
[2023-03-10] MEDS: NICOTINE 10 MG CARTRIDGE (INHALER) IH PRN (06:30)
[2023-03-10 07:27] VITALS: BP 125/80; RESP 17; TEMP 98
[2023-03-10] MEDS: BENZTROPINE MESYLATE 1 MG TABLET PO SCH (09:26)
[2023-03-10] MEDS: PRENATAL VITAMINS W/ FOLIC ACID TABLET (FP) PO SCH (09:26)
[2023-03-10] MEDS: LURASIDONE HCL 40 MG TABLET PO SCH (09:26)
[2023-03-10] MEDS: VENLAFAXINE HCL 75 MG E.R. CAPSULES PO SCH (09:26)
[2023-03-10] MEDS: PANTOPRAZOLE 20 MG TABLET PO SCH (09:26)
== END 2023-03-10 09:42 | disposition home or self-care (01) | DRG 772 ==
LOC: YASAS 13:33 → Y3W 13:34
PROVIDERS: ADMIT Allergy & Immunology; ATTEND Psychiatry & Neurology Pain Medicine
PROC: HZ42ZZZ Group Counseling for Substance Abuse Treatment, Cognitive-Behavioral (ICD-10-PCS; principal; 2023-02-11)
DX: F10.20 Alcohol dependence, uncomplicated (principal); F11.20 Opioid dependence, uncomplicated; F13.20 Sedative, hypnotic or anxiolytic dependence, uncomplicated; F14.20 Cocaine dependence, uncomplicated; F17.210 Nicotine dependence, cigarettes, uncomplicated; F31.9 Bipolar disorder, unspecified; F41.8 Other specified anxiety disorders; F19.282 Other psychoactive substance dependence with psychoactive substance-induced sleep disorder; F19.24 Other psychoactive substance dependence with psychoactive substance-induced mood disorder; B18.2 Chronic viral hepatitis C; D64.9 Anemia, unspecified; J45.909 Unspecified asthma, uncomplicated; M54.50 Low back pain, unspecified; G89.29 Other chronic pain; K59.00 Constipation, unspecified; Z91.199 Patient's noncompliance with other medical treatment and regimen due to unspecified reason
CPT/HCPCS: 36415; 86803; 87522; 87635

== ENCOUNTER 2024-08-27 11:39 | Inpatient (IN) | payer OTHER ==
[2024-08-27 11:53] VITALS: BMI 25.8
[2024-08-27] MEDS ORDERED: NICOTINE POLACRILEX 2 MG LOZENGE BC PRN (12:02)
[2024-08-27] MEDS ORDERED: P-EPHED 60MG/TRIPROLIDI 2.5MG TABLET PO PRN (12:02)
[2024-08-27] MEDS ORDERED: IBUPROFEN 400 MG TABLET (FP) PO PRN (12:02)
[2024-08-27] MEDS ORDERED: BENZOCAINE/MENTHOL (CHLORASEPTIC ) LOZENGE MM PRN (12:02)
[2024-08-27] MEDS ORDERED: BENZONATATE 200 MG CAPSULE PO PRN (12:02)
[2024-08-27] MEDS ORDERED: guaiFENesin 600 MG TABLET.ER (FP) PO PRN (12:02)
[2024-08-27] MEDS ORDERED: LOPERAMIDE HCL 2 MG CAPSULE PO PRN (12:02)
[2024-08-27] MEDS ORDERED: NALOXONE (NARCAN) HCL 4 MG/0.1 ML SPRAY NS PRN (12:02)
[2024-08-27] MEDS ORDERED: ACETAMINOPHEN 325 MG TABLET (FP) PO PRN (12:02)
[2024-08-27] MEDS ORDERED: NICOTINE POLACRILEX 2 MG GUM BUC PRN (12:02)
[2024-08-27] MEDS: methaDONE HCL 40 MG DISPERSABLE TABLET PO SCH (14:45)
[2024-08-27] MEDS ORDERED: TUBERCULIN PPD 5 TU/0.1ML VIAL ID ONE (14:47)
[2024-08-27] MEDS: IBUPROFEN 600 MG TABLET (FP) PO PRN (17:40)
[2024-08-27] MEDS: THIAMINE 100 MG TABLET PO SCH (21:14)
[2024-08-27] MEDS: MIRTAZAPINE 15 MG TABLET (FP) PO SCH (21:14)
[2024-08-27] MEDS: BENZTROPINE MESYLATE 1 MG TABLET PO SCH (21:14)
[2024-08-27] MEDS: PRAZOSIN HCL 1 MG CAPSULE PO SCH (21:15)
[2024-08-27] MEDS: MELATONIN 5 MG TABLETS PO SCH (21:15)
[2024-08-27] MEDS ORDERED: MELATONIN 5 MG TABLETS PO SCH (22:00)
[2024-08-28] MEDS: FAMOTIDINE 20 MG TABLET PO SCH (10:32)
[2024-08-28] MEDS: VENLAFAXINE HCL 37.5 MG E.R. CAPSULE PO SCH (10:32)
[2024-08-28] MEDS: PRENATAL VITAMINS W/ FOLIC ACID TABLET (FP) PO SCH (10:33)
[2024-08-28 11:07] LABS: HEMATOCRIT 35.8 % (35.4-49); HEMOGLOBIN 11.8 GM/dL (11.7-16.9); MCH 26.3 pg (25.7-33.7); MCHC 32.8 g/dl (32.0-35.9); MEAN CELL VOLUME 80.3 fl (80-96); MEAN PLT VOLUME 9.1 fl (7.5-11.1); PLATELET COUNT 247 10^3/uL (134-434); RBC 4.47 M/mm3 (4.00-5.60); RDW 14.6 % (11.9-15.9); WHITE BLOOD COUNT 5.2 K/mm3 (4.0-10.0)
[2024-08-28 11:08] LABS: PH,URINE 5.5 (5.0-8.0); URINE APPEARANCE CLEAR; URINE BILIRUBIN NEGATIVE (NEGATIVE); URINE COLOR YELLOW; URINE GLUCOSE (UA) NEGATIVE (NEGATIVE); URINE KETONE NEGATIVE (NEGATIVE); URINE LEUK ESTERASE NEGATIVE (NEGATIVE); URINE NITRITE NEGATIVE (NEGATIVE); URINE PROTEIN NEGATIVE (NEGATIVE); URINE UROBILINOGEN 0.2 mg/dL (0.2-1.0)
[2024-08-28] MEDS: (Cariprazine Hcl [Vraylar] 1.5 MG Capsule) PO SCH (12:21)
[2024-08-28] MEDS: FLU VACCINE (FLULAVAL) PF 45 MCG/0.5 ML SYRINGE 2024-2025 IM ONE (12:21)
[2024-08-28 12:34] LABS: POTASSIUM 3.9 mmol/L (3.5-5.1)
[2024-08-28 12:38] LABS: ALBUMIN 3.8 g/dl (3.4-5.0); BLOOD UREA NITROGEN 13.4 mg/dL (7-18)
[2024-08-28 12:41] LABS: CREATININE 0.8 mg/dL (0.55-1.3)
[2024-08-28 12:42] LABS: BILIRUBIN,TOTAL 0.3 mg/dL (0.2-1); TOT PROT 7.4 g/dl (6.4-8.2)
[2024-08-29] MEDS ORDERED: NICOTINE POLACRILEX 4 MG LOZENGE BC PRN (10:18)
[2024-08-29] MEDS: NICOTINE 7 MG/24 HOURS TOPICAL PATCH TD SCH (10:42)
[2024-08-29] MEDS: BACLOFEN 10 MG TABLET (FP) PO SCH (21:13)
[2024-08-30] MEDS: TAMSULOSIN HCL 0.4 MG CAP PO SCH (07:31)
[2024-09-01] MEDS: hydrOXYzine PAMOATE 25 MG CAPSULE (FP) PO ONE (07:20)
[2024-09-02] MEDS: DOCUSATE SODIUM 100 MG CAPSULE (FP) PO PRN (17:25)
[2024-09-03] MEDS: MAG HYDROX/AL HYDROX/SIMETH 30 ML UNIT-DOSE CUP PO PRN (11:17)
[2024-09-03] MEDS: POLYETHYLENE GLYCOL (HEALTHYLAX) 3350 17 GM PACKET PO PRN (19:14)
[2024-09-03] MEDS: propRANOLol HCL 10 MG TABLET PO ONE (21:33)
[2024-09-05] MEDS: MAGNESIUM HYDROX 2400MG/30ML ORAL SUSPENSION 30 ML CUP PO PRN (19:01)
[2024-09-06] MEDS: CALAMINE 8% TOPICAL LOTION 177 ML BOTTLE TP PRN (09:45)
[2024-09-13] MEDS: BENZOCAINE 20 % GEL TUBE MM PRN (14:47)
[2024-09-24 06:51] VITALS: BP 132/79; PULSE 100; RESP 18; TEMP 98.2
== END 2024-09-24 10:05 | disposition home or self-care (01) | DRG 772 ==
LOC: YASAS 11:39 → Y5N 13:20
PROVIDERS: ADMIT Psychiatry & Neurology Pain Medicine; ATTEND Psychiatry & Neurology Pain Medicine
PROC: HZ42ZZZ Group Counseling for Substance Abuse Treatment, Cognitive-Behavioral (ICD-10-PCS; principal; 2024-08-27)
DX: F11.20 Opioid dependence, uncomplicated (principal); F14.20 Cocaine dependence, uncomplicated; F17.210 Nicotine dependence, cigarettes, uncomplicated; F19.282 Other psychoactive substance dependence with psychoactive substance-induced sleep disorder; F19.280 Other psychoactive substance dependence with psychoactive substance-induced anxiety disorder; F19.24 Other psychoactive substance dependence with psychoactive substance-induced mood disorder; F31.9 Bipolar disorder, unspecified; F41.1 Generalized anxiety disorder; J45.909 Unspecified asthma, uncomplicated; L85.3 Xerosis cutis; K08.89 Other specified disorders of teeth and supporting structures; M54.9 Dorsalgia, unspecified; G89.29 Other chronic pain; Z86.19 Personal history of other infectious and parasitic diseases; Z86.11 Personal history of tuberculosis
CPT/HCPCS: 36415; 71046-TC-FY; 80053; 80305; 80307; 81003; 82962; 85027; 86780; 87811; 90656; 93005; 93010; G0008; J0475

== ENCOUNTER 2024-12-04 12:13 | Inpatient (IN) | payer OTHER ==
[2024-12-04 12:35] VITALS: BMI 30.9
[2024-12-04] MEDS ORDERED: MAGNESIUM HYDROX 2400MG/30ML ORAL SUSPENSION 30 ML CUP PO PRN (12:49)
[2024-12-04] MEDS ORDERED: LOPERAMIDE HCL 2 MG CAPSULE PO PRN (12:49)
[2024-12-04] MEDS ORDERED: guaiFENesin 600 MG TABLET.ER (FP) PO PRN (12:49)
[2024-12-04] MEDS ORDERED: IBUPROFEN 600 MG TABLET (FP) PO PRN (12:49)
[2024-12-04] MEDS ORDERED: ONDANSETRON *ODT* 4 MG TABLET SL PRN (12:49)
[2024-12-04] MEDS ORDERED: DICYCLOMINE HCL 10 MG CAPSULE PO PRN (12:49)
[2024-12-04] MEDS ORDERED: BISMUTH SUBSALICYLATE 524 MG/30 ML PO PRN (12:49)
[2024-12-04] MEDS ORDERED: POLYETHYLENE GLYCOL (HEALTHYLAX) 3350 17 GM PACKET PO PRN (12:49)
[2024-12-04] MEDS ORDERED: IBUPROFEN 400 MG TABLET (FP) PO PRN (12:49)
[2024-12-04] MEDS ORDERED: BENZONATATE 200 MG CAPSULE PO PRN (12:49)
[2024-12-04] MEDS ORDERED: MAG HYDROX/AL HYDROX/SIMETH 30 ML UNIT-DOSE CUP PO PRN (12:49)
[2024-12-04] MEDS ORDERED: NALOXONE (NARCAN) HCL 4 MG/0.1 ML SPRAY NS PRN (12:49)
[2024-12-04] MEDS ORDERED: BENZOCAINE/MENTHOL (CHLORASEPTIC ) LOZENGE MM PRN (12:49)
[2024-12-04] MEDS ORDERED: NICOTINE 7 MG/24 HOURS TOPICAL PATCH TD ONE (13:49)
[2024-12-04] MEDS ORDERED: PRENATAL VITAMINS W/ FOLIC ACID TABLET (FP) PO ONE (13:49)
[2024-12-04] MEDS ORDERED: methaDONE HCL 10 MG TABLET (FOR DETOX USE ONLY) ONE (13:49)
[2024-12-04] MEDS ORDERED: cloNIDine HCL 0.1 MG TABLET ONE (13:49)
[2024-12-04] MEDS: NICOTINE 7 MG/24 HOURS TOPICAL PATCH TD SCH (13:54)
[2024-12-04] MEDS: PRENATAL VITAMINS W/ FOLIC ACID TABLET (FP) PO SCH (13:54)
[2024-12-04] MEDS: cloNIDine HCL 0.1 MG TABLET PO SCH (13:54)
[2024-12-04] MEDS: methaDONE HCL 10 MG TABLET PO ONE (13:54)
[2024-12-04] MEDS ORDERED: methaDONE HCL 10 MG TABLET PO PRN (18:00)
[2024-12-04] MEDS: MELATONIN 5 MG TABLETS PO SCH (22:07)
[2024-12-04] MEDS: THIAMINE 100 MG TABLET PO SCH (22:07)
[2024-12-05] MEDS: TOPIRAMATE 25 MG TABLET PO SCH (09:04)
[2024-12-05 11:54] LABS: HEMATOCRIT 35.1 % (40.1-51.0); MCHC 31.3 g/dl (32.3-36.5); MEAN CELL VOLUME 81.4 fl (79.0-92.2); MEAN PLT VOLUME 11.6 fl (9.4-12.4); PLATELET COUNT 390 x10^3/uL (163-337); RDW 13.2 % (12.0-15.6)
[2024-12-05 11:56] LABS: POTASSIUM 4.1 mmol/L (3.5-5.1)
[2024-12-05 12:08] LABS: CALCIUM 9.1 mg/dL (8.5-10.1)
[2024-12-05] MEDS: PNEUMOC 20-VAL CONJ-DIP CRM/PF 0.5 ML SYRINGE IM ONE (12:10)
[2024-12-05 12:14] LABS: ALBUMIN 3.6 g/dl (3.4-5.0)
[2024-12-05 12:15] LABS: BLOOD UREA NITROGEN 9.2 mg/dL (7-18)
[2024-12-05 12:18] LABS: CREATININE 0.8 mg/dL (0.55-1.3)
[2024-12-05 12:19] LABS: BILIRUBIN,TOTAL 0.2 mg/dL (0.2-1); TOT PROT 7.6 g/dl (6.4-8.2)
[2024-12-05 12:59] LABS: HIV INTERPRETATION NEGATIVE (NEGATIVE)
[2024-12-05 16:12] LABS: HCV DIAGNOSTIC IN-HOUSE W/RFLX REACTIVE (NONREACTIVE)
[2024-12-05] MEDS: PRAZOSIN HCL 1 MG CAPSULE PO SCH (22:15)
[2024-12-05] MEDS: BENZTROPINE MESYLATE 1 MG TABLET PO SCH (22:15)
[2024-12-05] MEDS: MIRTAZAPINE 15 MG TABLET (FP) PO SCH (22:15)
[2024-12-06] MEDS ORDERED: cloNIDine HCL 0.1 MG TABLET PO PRN
[2024-12-06] MEDS: methaDONE 40 MG, methaDONE 10 MG PO ONE (10:11)
[2024-12-06] MEDS: VENLAFAXINE HCL 37.5 MG E.R. CAPSULE PO SCH (10:11)
[2024-12-06] MEDS: CARIPRAZINE HCL 1.5 MG CAPSULE PO SCH (14:30)
[2024-12-07] MEDS: ACETAMINOPHEN 325 MG TABLET (FP) PO PRN (18:08)
[2024-12-07] MEDS: METHOCARBAMOL 500 MG TABLET PO PRN (18:08)
[2024-12-07] MEDS: hydrOXYzine PAMOATE 25 MG CAPSULE (FP) PO PRN (18:08)
[2024-12-08] MEDS ORDERED: methaDONE HCL 10 MG TABLET PO SCH (10:00)
[2024-12-08] MEDS ORDERED: methaDONE 40 MG, methaDONE 20 MG PO ONE (10:00)
[2024-12-08] MEDS: methaDONE 40 MG, methaDONE 10 MG PO SCH (10:39)
[2024-12-08 12:58] VITALS: RESP 18
[2024-12-09 08:50] VITALS: BP 127/84; PULSE 87; TEMP 97.9
== END 2024-12-09 10:03 | disposition other institution (70) | DRG 773 ==
LOC: YASAS 12:13 → Y3N 13:36
PROVIDERS: ADMIT Allergy & Immunology; ATTEND Psychiatry & Neurology Pain Medicine
PROC: HZ2ZZZZ Detoxification Services for Substance Abuse Treatment (ICD-10-PCS; principal; 2024-12-04)
DX: F11.23 Opioid dependence with withdrawal (principal); F14.20 Cocaine dependence, uncomplicated; F13.20 Sedative, hypnotic or anxiolytic dependence, uncomplicated; F17.210 Nicotine dependence, cigarettes, uncomplicated; F41.9 Anxiety disorder, unspecified; F43.10 Post-traumatic stress disorder, unspecified; G47.00 Insomnia, unspecified; K21.9 Gastro-esophageal reflux disease without esophagitis; M54.9 Dorsalgia, unspecified; G89.29 Other chronic pain; Z62.810 Personal history of physical and sexual abuse in childhood
CPT/HCPCS: 36415; 80053; 80305; 80307; 85027; 86780; 86803; 87389; 87522; 87811; 93005; 93010

== ENCOUNTER 2025-03-11 12:08 | Inpatient (IN) | payer OTHER ==
[2025-03-11 13:08] VITALS: BMI 28.4
[2025-03-11] MEDS ORDERED: guaiFENesin 600 MG TABLET.ER (FP) PO PRN (13:21)
[2025-03-11] MEDS ORDERED: ACETAMINOPHEN 325 MG TABLET (FP) PO PRN (13:21)
[2025-03-11] MEDS ORDERED: POLYETHYLENE GLYCOL (HEALTHYLAX) 3350 17 GM PACKET PO PRN (13:21)
[2025-03-11] MEDS ORDERED: LOPERAMIDE HCL 2 MG CAPSULE PO PRN (13:21)
[2025-03-11] MEDS ORDERED: DICYCLOMINE HCL 10 MG CAPSULE PO PRN (13:21)
[2025-03-11] MEDS ORDERED: BENZONATATE 200 MG CAPSULE PO PRN (13:21)
[2025-03-11] MEDS ORDERED: P-EPHED 60MG/TRIPROLIDI 2.5MG TABLET PO PRN (13:21)
[2025-03-11] MEDS ORDERED: NICOTINE POLACRILEX 2 MG LOZENGE BC PRN (13:21)
[2025-03-11] MEDS ORDERED: IBUPROFEN 400 MG TABLET (FP) PO PRN (13:21)
[2025-03-11] MEDS ORDERED: BENZOCAINE/MENTHOL (CHLORASEPTIC ) LOZENGE MM PRN (13:21)
[2025-03-11] MEDS ORDERED: NALOXONE (NARCAN) HCL 4 MG/0.1 ML SPRAY NS PRN (13:21)
[2025-03-11] MEDS ORDERED: MAG HYDROX/AL HYDROX/SIMETH 30 ML UNIT-DOSE CUP PO PRN (13:21)
[2025-03-11] MEDS ORDERED: MAGNESIUM HYDROX 2400MG/30ML ORAL SUSPENSION 30 ML CUP PO PRN (13:21)
[2025-03-11] MEDS ORDERED: BISMUTH SUBSALICYLATE 524 MG/30 ML PO PRN (13:21)
[2025-03-11] MEDS: METHOCARBAMOL 500 MG TABLET PO PRN (22:25)
[2025-03-11] MEDS: THIAMINE 100 MG TABLET PO SCH (22:26)
[2025-03-11] MEDS: MELATONIN 5 MG TABLETS PO SCH (22:26)
[2025-03-12 09:01] LABS: MCHC 32.2 g/dl (32.3-36.5); MEAN CELL VOLUME 78.1 fl (79.0-92.2); MEAN PLT VOLUME 11.2 fl (9.4-12.4); RDW 13.3 % (12.0-15.6)
[2025-03-12] MEDS: PRENATAL VITAMINS W/ FOLIC ACID TABLET (FP) PO SCH (10:06)
[2025-03-12] MEDS: ONDANSETRON *ODT* 4 MG TABLET SL PRN (10:07)
[2025-03-12 10:45] LABS: GLUCOSE,RANDOM 104.0 mg/dL (74-106); TOT PROT 7.3 g/dl (6.4-8.2)
[2025-03-12 10:46] LABS: CO2 25.0 mmol/L (21-32)
[2025-03-12 10:47] LABS: ALK PHOS 98.0 U/L (40-150)
[2025-03-12 10:50] LABS: CREATININE 0.58 mg/dL (0.55-1.3); SGOT/AST 25.0 U/L (5-34); SGPT/ALT 31.0 U/L (0-55)
[2025-03-12] MEDS: BENZTROPINE MESYLATE 1 MG TABLET PO SCH (13:14)
[2025-03-12] MEDS: VENLAFAXINE HCL 37.5 MG E.R. CAPSULE PO SCH (13:30)
[2025-03-12] MEDS: IBUPROFEN 600 MG TABLET (FP) PO PRN (17:28)
[2025-03-12] MEDS: PRAZOSIN HCL 1 MG CAPSULE PO SCH (22:25)
[2025-03-12] MEDS: MIRTAZAPINE 15 MG TABLET (FP) PO SCH (22:25)
[2025-03-13] MEDS: CARIPRAZINE HCL 1.5 MG CAPSULE PO SCH (10:37)
[2025-03-15] MEDS ORDERED: ALBUTEROL SO4 HFA INHALER IH PRN (11:14)
[2025-03-17 08:52] VITALS: BP 132/94; PULSE 97; RESP 17; TEMP 97.7
[2025-03-17] MEDS: NICOTINE POLACRILEX 2 MG GUM BUC PRN (10:36)
== END 2025-03-17 11:31 | disposition other institution (70) | DRG 773 ==
LOC: YASAS 12:08 → Y6N 16:27
PROVIDERS: ADMIT Allergy & Immunology; ATTEND Allergy & Immunology
PROC: HZ2ZZZZ Detoxification Services for Substance Abuse Treatment (ICD-10-PCS; principal; 2025-03-11)
DX: F11.23 Opioid dependence with withdrawal (principal); F14.10 Cocaine abuse, uncomplicated; F13.20 Sedative, hypnotic or anxiolytic dependence, uncomplicated; F17.210 Nicotine dependence, cigarettes, uncomplicated; F31.9 Bipolar disorder, unspecified; F41.9 Anxiety disorder, unspecified; B18.2 Chronic viral hepatitis C; J45.909 Unspecified asthma, uncomplicated; Z62.810 Personal history of physical and sexual abuse in childhood; Z59.01 Sheltered homelessness
CPT/HCPCS: 36415; 80053; 85027; 86780; Q0162

== ENCOUNTER 2025-05-07 11:45 | Inpatient (IN) | payer OTHER ==
[2025-05-07 12:08] VITALS: BMI 32.5
[2025-05-07] MEDS ORDERED: MAG HYDROX/AL HYDROX/SIMETH 30 ML UNIT-DOSE CUP PO PRN (12:45)
[2025-05-07] MEDS ORDERED: ONDANSETRON *ODT* 4 MG TABLET SL PRN (12:45)
[2025-05-07] MEDS ORDERED: POLYETHYLENE GLYCOL (HEALTHYLAX) 3350 17 GM PACKET PO PRN (12:45)
[2025-05-07] MEDS ORDERED: NICOTINE POLACRILEX 2 MG LOZENGE BC PRN (12:45)
[2025-05-07] MEDS ORDERED: NALOXONE (NARCAN) HCL 4 MG/0.1 ML SPRAY NS PRN (12:45)
[2025-05-07] MEDS ORDERED: guaiFENesin 600 MG TABLET.ER (FP) PO PRN (12:45)
[2025-05-07] MEDS ORDERED: ACETAMINOPHEN 325 MG TABLET (FP) PO PRN (12:45)
[2025-05-07] MEDS ORDERED: IBUPROFEN 600 MG TABLET (FP) PO PRN (12:45)
[2025-05-07] MEDS ORDERED: BENZONATATE 200 MG CAPSULE PO PRN (12:45)
[2025-05-07] MEDS ORDERED: DICYCLOMINE HCL 10 MG CAPSULE PO PRN (12:45)
[2025-05-07] MEDS ORDERED: LOPERAMIDE HCL 2 MG CAPSULE PO PRN (12:45)
[2025-05-07] MEDS ORDERED: BENZOCAINE/MENTHOL (CHLORASEPTIC ) LOZENGE MM PRN (12:45)
[2025-05-07] MEDS ORDERED: IBUPROFEN 400 MG TABLET (FP) PO PRN (12:45)
[2025-05-07] MEDS ORDERED: BISMUTH SUBSALICYLATE 524 MG/30 ML PO PRN (12:45)
[2025-05-07] MEDS ORDERED: MAGNESIUM HYDROX 2400MG/30ML ORAL SUSPENSION 30 ML CUP PO PRN (12:45)
[2025-05-07] MEDS ORDERED: BUPRENORPHINE/NALOXONE 0.5 MG/0.125 MG FILM ONE (14:04)
[2025-05-07] MEDS: BUPRENORPHINE/NALOXONE 0.5 MG/0.125 MG FILM SL ONE ×2 (14:06→22:31)
[2025-05-07 17:19] LABS: GLUCOSE,RANDOM 155 mg/dL (74-106); TOT PROT 7.6 g/dl (6.4-8.2)
[2025-05-07 17:20] LABS: CO2 26 mmol/L (21-32)
[2025-05-07 17:25] LABS: CREATININE 0.73 mg/dL (0.55-1.3); SGPT/ALT 48 U/L (0-55)
[2025-05-07 17:50] LABS: SYPHILIS W/ RPR CONF NON-REACTIVE (NONREACTIVE)
[2025-05-07 17:51] LABS: HIV INTERPRETATION NEGATIVE (NEGATIVE)
[2025-05-07 17:55] LABS: SGOT/AST 42 U/L (5-34)
[2025-05-07 19:04] LABS: ALK PHOS 109 U/L (40-150)
[2025-05-07 19:48] LABS: HCV DIAGNOSTIC IN-HOUSE W/RFLX REACTIVE (NONREACTIVE)
[2025-05-07] MEDS: METOPROLOL TARTRATE 25 MG TABLET (FP) PO SCH (22:30)
[2025-05-07] MEDS: MELATONIN 5 MG TABLETS PO SCH (22:31)
[2025-05-07] MEDS: PRAZOSIN HCL 1 MG CAPSULE PO SCH (22:31)
[2025-05-07] MEDS: MIRTAZAPINE 15 MG TABLET (FP) PO SCH (22:31)
[2025-05-07] MEDS: THIAMINE 100 MG TABLET PO SCH (22:31)
[2025-05-08] MEDS: hydrOXYzine PAMOATE 25 MG CAPSULE (FP) PO PRN (01:00)
[2025-05-08] MEDS: METHOCARBAMOL 500 MG TABLET PO PRN (01:00)
[2025-05-08 08:59] VITALS: RESP 16; TEMP 97.6
[2025-05-08] MEDS: NICOTINE 14 MG/24 HOURS TOPICAL PATCH TD SCH (09:30)
[2025-05-08] MEDS: PRENATAL VITAMINS W/ FOLIC ACID TABLET (FP) PO SCH (09:30)
[2025-05-08] MEDS: BUPRENORPHINE/NALOXONE 0.5 MG/0.125 MG FILM SL SCH (09:36)
[2025-05-08 11:35] LABS: MCHC 30.9 g/dl (32.3-36.5); MEAN CELL VOLUME 81.9 fl (79.0-92.2); MEAN PLT VOLUME 11.4 fl (9.4-12.4); RDW 14.7 % (12.0-15.6)
[2025-05-08 13:08] VITALS: BP 102/69; PULSE 72
[2025-05-09] MEDS ORDERED: BUPRENORPHINE/NALOXONE 2 MG/0.5 MG FILM PACKET SL SCH (10:00)
[2025-05-10] MEDS ORDERED: BUPRENORPHINE/NALOXONE 4 MG/1 MG FILM PACKET SL SCH (10:00)
[2025-05-11] MEDS ORDERED: BUPRENORPHINE/NALOXONE 8 MG/2 MG FILM PACKET SL SCH (10:00)
[2025-05-12] MEDS ORDERED: BUPRENORPHINE/NALOXONE 8 MG/2 MG FILM PACKET SL SCH (10:00)
== END 2025-05-08 15:34 | disposition home or self-care (01) | DRG 773 ==
LOC: SUATTDRO 11:45 → YASAS 11:45 → Y6N 13:48
PROVIDERS: ADMIT Family Medicine; ATTEND Counselor Addiction (Substance Use Disorder)
PROC: HZ2ZZZZ Detoxification Services for Substance Abuse Treatment (ICD-10-PCS; principal; 2025-05-07)
DX: F11.23 Opioid dependence with withdrawal (principal); F10.20 Alcohol dependence, uncomplicated; I10 Essential (primary) hypertension; J45.909 Unspecified asthma, uncomplicated; F31.9 Bipolar disorder, unspecified; F41.8 Other specified anxiety disorders; Z59.00 Homelessness unspecified; F17.210 Nicotine dependence, cigarettes, uncomplicated
CPT/HCPCS: 36415; 80053; 80307; 85027; 86780; 86803; 87389; 87522; 93005; 93010